=== PATIENT | male | born 1975 ===

== ENCOUNTER 2017-03-22 13:45 | Emergency (ER) | payer MEDICARE, MEDICAID ==
[2017-03-22 14:14] VITALS: BP 129/87; PULSE 68; RESP 20; TEMP 98.6; O2SAT 98; BMI 28.1
--- NOTE | 2017-03-22 14:41 | ED PDOC ---
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 States he twisted his right ankle while playing basketball this afternoon. Pain with weight bearing. Denies any other complaint. (Humberto,Italo A) Past Medical History - Provider Review Nursing Documentation Reviewed: Yes - Past History Past History: Non-Contributing - Infectious Disease Hx of Infectious Diseases: None - Tetanus Immunization Tetanus Immunization: Unknown - Cardiac Hx Cardiac Disorders: Yes Hx Hypertension: Yes Hx Hypotension: No - Pulmonary Hx Respiratory Disorders: No Hx Tuberculosis: No - Neurological HX Cerebrovascular Accident: No Hx Seizures: No - Hematological/Oncological Hx Cancer: No - Musculoskeletal/Rheumatological Hx Falls: No - Gastrointestinal Hx Gastrointestinal Disorders: No - Genitourinary/Gynecological Hx Genitourinary Disorders: No Hx Reproductive Disorders: No - Psychiatric Hx Psychophysiologic Disorder: Yes Hx Bipolar Disorder: Yes Hx Depression: No Hx Emotional Abuse: No Hx Physical Abuse: No Hx Substance Use: No Other/Comment: Developmental delay - Past Surgical History Past Surgical History: No Previous - Anesthesia Hx Anesthesia: No Hx Anesthesia Reactions: No Hx Malignant Hyperthermia: No - Suicidal Assessment Feels Threatened In Home Enviroment: No Family/Social History - Physician Review Nursing Documentation Reviewed: Yes Family/Social History: Unknown Family HX Smoking Status: Never Smoked Hx Alcohol Use: No Hx Substance Use: No Hx Substance Use Treatment: No Allergies/Home Meds Allergies/Adverse Reactions: Allergies No Known Allergies Allergy (Verified 11/15/15 18:36) Home Medications: Home Meds Medication Instructions Recorded Confirmed Fenofibrate [Fenofibrate] 160 mg PO DAILY 10/18/14 03/22/17 Simvastatin [Simvastatin] 20 mg PO DAILY 10/18/14 03/22/17 ARIPiprazole [Abilify] 5 mg PO DAILY 11/15/15 03/22/17 Benztropine [Benztropine Mesylate] 0.5 mg PO BID 11/15/15 03/22/17 Divalproex [Depakote ER(ONCE 500 mg PO DAILY 11/15/15 03/22/17 DAILY)] hydrOXYzine Pamoate [Vistaril] 50 mg PO PRN PRN 11/15/15 03/22/17 Review of Systems - Physician Review All systems were reviewed & negative as marked: Yes - Review of Systems Constitutional: Normal Eyes: Normal ENT: Normal Respiratory: Normal Cardiovascular: Normal Gastrointestinal: Normal Genitourinary Male: Normal Musculoskeletal: Arthralgias (Right ankle pain) Skin: Normal Neurological: Normal Endocrine: Normal Hemo/Lymphatic: Normal Psychiatric: Normal Physical Exam Vital Signs Reviewed: Yes Temperature: Afebrile Blood Pressure: Normal Pulse: Regular Respiratory Rate: Normal Appearance: Positive for: Well-Appearing, Non-Toxic, Comfortable Pain Distress: None Mental Status: Positive for: Alert and Oriented X 3 - Systems Exam Head: Present: Atraumatic, Normocephalic Pupils: Present: PERRL Extroacular Muscles: Present: EOMI Conjunctiva: Present: Normal Mouth: Present: Moist Mucous Membranes Neck: Present: Normal Range of Motion Respiratory/Chest: Present: Clear to Auscultation, Good Air Exchange. No: Respiratory Distress, Accessory Muscle Use Cardiovascular: Present: Regular Rate and Rhythm, Normal S1, S2. No: Murmurs Abdomen: Present: Normal Bowel Sounds. No: Tenderness, Distention, Peritoneal Signs Back: Present: Normal Inspection Upper Extremity: Present: Normal Inspection. No: Cyanosis, Edema Lower Extremity: Present: NORMAL PULSES, Normal ROM, Tenderness (OVer right lateral malleolus\), Temperature Abnormalties, Neurovascularly Intact, Capillary Refill < 2 s. No: Edema, Swelling, Erythema, Deformity Neurological: Present: GCS=15, CN II-XII Intact, Speech Normal Skin: Present: Warm, Dry, Normal Color. No: Rashes Psychiatric: Present: Alert, Oriented x 3, Normal Insight, Normal Concentration Vital Signs Temp Pulse Resp BP Pulse Ox 03/22/17 14:14 98.6 F 68 20 129/87 98 Medical Decision Making ED Course and Treatment: I was available for consultation during PA evaluation. The chart reviewed by me , and I agree with disposition. The documented history was done by the physician buttoner. The documented physical exam was done by the physician buttoner. The documented procedures were done by the physician buttoner. (John Manzo) Right ankle xray - No acute finding Fortino wrap applied. Crutches given. Advised to RICE ankle. Refered to his PMD/ Ortho. TRT ED for any new or worsening symptoms. (Italo Paul) - RAD Interpretation Radiology Orders: 03/22/17 14:14 ANKLE RIGHT 3 VIEWS ROUTINE [RAD] Stat - Medication Orders Current Medication Orders: Discontinued Medications Ibuprofen (Motrin Tab) 600 mg PO STAT STA Stop: 03/22/17 14:15 Last Admin: 03/22/17 14:50 Dose: 600 mg Disposition/Present on Arrival - Present on Arrival Any Indicators Present on Arrival: No History of DVT/PE: No History of Uncontrolled Diabetes: No Urinary Catheter: No History of Decub. Ulcer: No History Surgical Site Infection Following: None - Disposition Have Diagnosis and Disposition been Completed?: Yes Disposition Time: 14:55 Patient Plan: Discharge - Disposition Diagnosis: Ankle sprain Disposition: HOME/ ROUTINE Condition: STABLE Discharge Instructions (ExitCare): Ankle Sprain (ED) Additional Instructions: Rest, ice compress and elevate Follow up with your Doctor/Orthopedist Return to ED for any new or worsening symptoms Prescriptions: Ibuprofen [Motrin Tab] 600 mg PO Q6 #20 tab Referrals: Danelle Pierson, [Primary Care Provider] - Follow up with primary Miriam Doty MD [Staff Provider] - Follow up with primary
--- NOTE | 2017-03-22 14:53 | RAD ---
PROCEDURE: Right Ankle Radiographs. HISTORY: ankle pain s/p trauma COMPARISON: None FINDINGS: BONES: Normal. No fracture. JOINTS: Normal. No osteoarthritis. Ankle mortise maintained. Talar dome intact SOFT TISSUES: Normal. OTHER FINDINGS: None. IMPRESSION: Normal right ankle radiographs.
== END 2017-03-22 15:25 | disposition home or self-care (01) ==
LOC: ED 13:45
DX: S93.401A Sprain of unspecified ligament of right ankle, initial encounter (principal); X50.1XXA Overexertion from prolonged static or awkward postures, initial encounter; Y93.67 Activity, basketball

== ENCOUNTER 2017-05-03 15:23 | Observation (INO) | payer MEDICARE, MEDICAID ==
[2017-05-03 16:03] VITALS: BMI 37.4
[2017-05-03] MEDS ORDERED: Vancomycin 1gm in NS 250ml 1 GM/250 ML BAG IVPB STA (16:24)
[2017-05-03] MEDS ORDERED: Piperacillin/Tazobact 3.375 gm 100 ML IVPB STA (16:24)
[2017-05-03] MEDS ORDERED: Sodium Chloride 0.9% 1,000 ML IV STA (16:24)
--- NOTE | 2017-05-03 16:24 | ED PDOC ---
Arrival/HPI - General Historian: Patient - General Chief Complaint: Finger,Hand,&Wrist Time Seen by Provider: 05/03/17 16:14 - History of Present Illness Narrative History of Present Illness (Text): 05/03/17 16:15 41 y/o male, pmh including htn/hyperlipidemia, psychiatric history including bipolar, nkda, mentally challanged from retirement [address] [employer], nkda, bib group therapy counselor for lt. hand redness/swelling with skin breaking x 2 days with no recall fall or trauma. As per the group therapy counselor which they realized that the patient has lt. hand redness and swelling started yesterday with blister, blistered popped today with clear drainage and lt. hand redness, no fever or chills, no headache or night sweat, no dizziness, no nausea or vomiting, no night sweat, painful to move the lt. hand, no other medical or psychological complaints. (Reg Wilder) Past Medical History - Provider Review Nursing Documentation Reviewed: Yes - Past History Past History: Non-Contributing - Infectious Disease Hx of Infectious Diseases: None - Tetanus Immunization Tetanus Immunization: Unknown - Cardiac Hx Cardiac Disorders: Yes Hx Hypertension: Yes Hx Hypotension: No - Pulmonary Hx Respiratory Disorders: No Hx Tuberculosis: No - Neurological HX Cerebrovascular Accident: No Hx Seizures: No - Hematological/Oncological Hx Cancer: No - Integumentary Hx Dermatological Disorder: No - Musculoskeletal/Rheumatological Hx Falls: No - Gastrointestinal Hx Gastrointestinal Disorders: No - Genitourinary/Gynecological Hx Genitourinary Disorders: No Hx Reproductive Disorders: No - Psychiatric Hx Psychophysiologic Disorder: Yes Hx Bipolar Disorder: Yes Hx Depression: No Hx Emotional Abuse: No Hx Physical Abuse: No Hx Substance Use: No Other/Comment: Developmental delay - Past Surgical History Past Surgical History: No Previous - Anesthesia Hx Anesthesia: No Hx Anesthesia Reactions: No Hx Malignant Hyperthermia: No - Suicidal Assessment Feels Threatened In Home Enviroment: No Family/Social History - Physician Review Nursing Documentation Reviewed: Yes Family/Social History: Unknown Family HX Smoking Status: Never Smoked Hx Alcohol Use: No Hx Substance Use: No Hx Substance Use Treatment: No Allergies/Home Meds Allergies/Adverse Reactions: Allergies No Known Allergies Allergy (Verified 05/03/17 16:03) Home Medications: Home Meds Medication Instructions Recorded Confirmed Fenofibrate [Fenofibrate] 160 mg PO DAILY 10/18/14 05/03/17 Simvastatin [Simvastatin] 20 mg PO DAILY 10/18/14 05/03/17 ARIPiprazole [Abilify] 5 mg PO DAILY 11/15/15 05/03/17 Benztropine [Benztropine Mesylate] 0.5 mg PO BID 11/15/15 05/03/17 Divalproex [Depakote ER(ONCE 500 mg PO DAILY 11/15/15 05/03/17 DAILY)] hydrOXYzine Pamoate [Vistaril] 50 mg PO PRN PRN 11/15/15 05/03/17 Review of Systems - Review of Systems Constitutional: absent: Fatigue, Fevers Eyes: absent: Vision Changes ENT: absent: Hearing Changes Respiratory: absent: SOB, Cough, Sputum Cardiovascular: absent: Chest Pain Gastrointestinal: absent: Abdominal Pain, Diarrhea, Nausea, Vomiting Musculoskeletal: absent: Arthralgias, Back Pain Skin: Rash, Cellulitis. absent: Pruritis, Skin Lesions, Laceration, Abscess Neurological: absent: Headache, Dizziness, Focal Weakness Physical Exam Vital Signs Reviewed: Yes Temperature: Afebrile Blood Pressure: Normal Pulse: Regular Respiratory Rate: Normal Appearance: Positive for: Well-Appearing, Non-Toxic, Comfortable Pain Distress: Moderate Mental Status: Positive for: Alert and Oriented X 3 - Systems Exam Head: Present: Atraumatic, Normocephalic Pupils: Present: PERRL Extroacular Muscles: Present: EOMI Conjunctiva: Present: Normal Mouth: Present: Moist Mucous Membranes Neck: Present: Normal Range of Motion Respiratory/Chest: Present: Clear to Auscultation, Good Air Exchange. No: Respiratory Distress, Accessory Muscle Use Cardiovascular: Present: Regular Rate and Rhythm, Normal S1, S2. No: Murmurs Abdomen: Present: Normal Bowel Sounds. No: Tenderness, Distention, Peritoneal Signs Back: Present: Normal Inspection (Lt. upper extremity: visible cellulitis on the dorsum aspect of the hand which streaking down to the 2nd to the 5th digits proximal phalanx and distal 1/3 forearm region with warmth along there is skin breaking approx. [id number] noted with clear fluid, painful to make flexion, sensation intact, motor 5/5, +radial pulse, capillary refill< 2 seconds, neurovascular intact. ) Upper Extremity: Present: Normal Inspection, Other (Lt. hand). No: Cyanosis, Edema Lower Extremity: Present: Normal Inspection. No: Edema Neurological: Present: GCS=15, Speech Normal, Motor Func Grossly Intact, Memory Normal Skin: Present: Warm, Dry, Normal Color. No: Rashes Psychiatric: Present: Alert, Oriented x 3, Normal Insight, Normal Concentration Vital Signs Temp Pulse Resp BP Pulse Ox 05/03/17 20:44 73 18 142/93 H 98 05/03/17 20:04 70 18 147/102 H 99 05/03/17 16:03 97.6 F 71 18 138/88 100 Medical Decision Making - Lab Interpretations I have reviewed the lab results: Yes Interpretation: No clinic. lab abnormalty - RAD Interpretation Review Trainer: Radiologist - EKG Interpretation Interpreted by ED Physician: Yes Type: 12 lead EKG Comparison: Com.w/previous EKG ED Course and Treatment: I was available for consultation during PA evaluation. The chart reviewed by me , and I agree with disposition. The documented history was done by the physician wood boatbuilder. The documented physical exam was done by the physician wood boatbuilder. The documented procedures were done by the physician wood boatbuilder. (John Manzo) 05/03/17 16:31 -labs/blood and urine culture/wound cultures -chest/lt. hand and forearm xray -ekg -IVF/toradol/benadryl/vancomycin/zosyn -will admit the patient due to the poor wound healing and circulation on the distal extremities. 05/03/17 19:46 -EKG: NSR @ 78 BPM, no ST elevation or depression, chronic T wave inversion noted on the lead III and aVF, compared with previous ekg. -Chest x-ray: no active disease -Lt. hand/forearm xray show: +soft tissue swelling, no fracture or dislocation. -LUE Venuous Doppler: as per preliminary report, no acute DVT -Labs show no acute findings. -Urinalysis show no UTI -Dr. Gregory paged for admission. 05/03/17 20:23 -I spoke to Dr. Gregory about the case and agreed on the admission with dr. gaming on routine consult. -Dr. Manzo agreed on the admission. (Reg Wilder) - Lab Interpretations Microbiology Results: Microbiology Results 05/03/17 16:35 Drainage Gram Stain - Final 05/03/17 16:35 Drainage Wound Culture - Preliminary NO GROWTH AFTER 24 HOURS Lab Results: 05/03/17 16:35 05/03/17 16:35 Lab Results 05/03/17 17:00: Urine Color Yellow, Urine Appearance Clear, Urine pH 6.0, Ur Specific [place] >= 1.030, Urine Protein Negative, Urine Glucose (UA) Negative, Urine Ketones Negative, Urine Blood Negative, Urine Nitrate Negative, Urine Bilirubin Negative, Urine Urobilinogen 0.2, Ur Leukocyte Esterase Negative 05/03/17 16:35: Sodium 140, Potassium 4.0, Chloride 103, Carbon Dioxide 26, Anion Gap 15, BUN 11, Creatinine 0.8, Est GFR ( Amer) > 60, Est GFR (Non- Af Amer) > 60, Random Glucose 94, Calcium 9.2, Total Bilirubin 0.5, AST 31, ALT 45, Alkaline Phosphatase 51, Total Protein 8.0, Albumin 4.4, Globulin 3.6, Albumin/Globulin Ratio 1.2 05/03/17 16:35: WBC 7.3 D, RBC 4.35, Hgb 13.8 L, Hct 40.0 L, MCV 92.0, MCH 31.7 , MCHC 34.5, RDW 12.7, Plt Count 236, MPV 10.5, Gran % 46.9 L, Lymph % (Auto) 41.2 H, [place] % (Auto) 9.2 H, Eos % (Auto) 2.3, Baso % (Auto) 0.4, Gran # 3.41, Lymph # 3.0, [place] # 0.7 H, Eos # 0.2, Baso # 0.03 - RAD Interpretation Radiology Orders: 05/03/17 16:24 CHEST ONE VIEW [RAD] Stat FOREARM LEFT [RAD] Stat HAND LEFT 3 VIEWS ROUTINE [RAD] Stat 05/03/17 17:44 DUPLEX UPPER EXTRM VEIN LEFT [US] Stat 05/03/17 16:24 CHEST PORTABLE [RAD] Stat FOREARM LEFT [RAD] Stat HAND LEFT 3 VIEWS ROUTINE [RAD] Stat 05/03/17 17:44 DUPLEX UPPER EXTRM VEIN LEFT [US] Stat LUE Venuous Doppler: as per preliminary, no acute DVT Lt. hand xray: soft tissue swelling, no evidence of osteomylitis Lt. forearm xray: no fracture or dislocation Chest x-ray: no active disease (Reg Wilder) - EKG Interpretation EKG Interpretation (Text): 05/03/17 17:11 NSR @ 78 BPM, no ST elevation or depression, chronic T wave inversion noted on the lead III and aVF, compared with previous ekg. (Reg Wilder) - Medication Orders Current Medication Orders: Acetaminophen (Tylenol 325mg Tab) 650 mg PO Q4H PRN PRN Reason: pain fever Aripiprazole (Abilify) 5 mg PO DAILY [facility] Last Admin: 05/04/17 10:00 Dose: 5 mg Re-Assess: Reassess Psych Meds Document 05/04/17 11:00 [facility] (Rec: 05/04/17 12:38 [id number] Reassess Psych Med Effective Atorvastatin Calcium (Lipitor) 10 mg PO DIN [facility] Benztropine Mesylate (Cogentin) 0.5 mg PO BID [facility] Last Admin: 05/04/17 10:01 Dose: 0.5 mg Divalproex Sodium (Depakote Er(Once Daily)) 500 mg PO DAILY [facility] PRN Reason: Protocol Last Admin: 05/04/17 10:00 Dose: 500 mg Re-Assess: Reassess Psych Meds Document 05/04/17 11:00 [facility] (Rec: 05/04/17 12:38 [id number] Reassess Psych Med Effective Docusate Sodium (Colace) 100 mg PO BID [facility] Last Admin: 05/04/17 10:01 Dose: 100 mg Famotidine (Pepcid) 40 mg PO HS [facility] Fenofibrate (Tricor) 145 mg PO DAILY [facility] Last Admin: 05/04/17 10:00 Dose: 145 mg Hydromorphone HCl (Dilaudid) 0.5 mg IVP Q4H PRN PRN Reason: Pain, Mild (1-3) Hydroxyzine Pamoate (Vistaril) 50 mg PO DAILY PRN; Protocol PRN Reason: Anxiety Vancomycin HCl (Vancomycin 1gm) 1 gm in 250 mls @ 167 mls/hr IVPB Q12H CARI PRN Reason: Protocol Stop: 05/13/17 09:46 Last Admin: 05/04/17 10:03 Dose: 167 mls/hr Discontinued Medications Diphenhydramine HCl (Benadryl) 25 mg IVP STAT STA Stop: 05/03/17 16:30 Last Admin: 05/03/17 16:54 Dose: 25 mg Sodium Chloride (Sodium Chloride 0.9%) 1,000 mls @ 125 mls/hr IV .Q8H STA Stop: 05/04/17 00:23 Last Admin: 05/03/17 16:59 Dose: 125 mls/hr Vancomycin HCl (Vancomycin 1gm) 1 gm in 250 mls @ 167 mls/hr IVPB STAT STA PRN Reason: Protocol Stop: 05/03/17 17:53 Last Admin: 05/03/17 17:55 Dose: 167 mls/hr Piperacillin Sod/Tazobactam Sod (Zosyn 3.375 In Ns 100ml) 100 mls @ 200 mls/hr IVPB STAT STA PRN Reason: Protocol Stop: 05/03/17 16:53 Last Admin: 05/03/17 17:06 Dose: 200 mls/hr Ketorolac Tromethamine (Toradol) 30 mg IVP STAT STA Stop: 05/03/17 16:30 Last Admin: 05/03/17 16:54 Dose: 30 mg - PA / EXTENSION SERVICE SUPERVISOR / Resident Statement / has reviewed & agrees with the documentation as recorded. Disposition/Present on Arrival - Present on Arrival Any Indicators Present on Arrival: No History of DVT/PE: No History of Uncontrolled Diabetes: No Urinary Catheter: No History of Decub. Ulcer: No History Surgical Site Infection Following: None - Disposition Have Diagnosis and Disposition been Completed?: Yes Disposition Time: 16:32 Patient Plan: Admission - Disposition Diagnosis: Cellulitis of hand, Cellulitis of forearm Disposition: HOSPITALIZED Patient Problems: Current Active Problems Problem Status Onset Cellulitis of forearm Acute Cellulitis of hand Acute Condition: STABLE
[2017-05-03] MEDS ORDERED: DiphenhydrAMINE 50 mg/ml Inj IVP STA (16:29)
[2017-05-03 16:45] LABS: ADD MANUAL DIFF? NO
[2017-05-03 16:58] LABS: BASO # 0.03 K/mm3 (0.0-2.0); BASO % 0.4 % (0.0-3.0); EOS # 0.2 (0.0-0.7); EOS % 2.3 % (1.5-5.0); GRAN # 3.41 (1.4-6.5); GRAN % 46.9 % (50.0-68.0); LYMPH % 41.2 % (22.0-35.0); MEAN CORPUSCULAR HEMOGLOBIN 31.7 pg (25.0-35.0); MEAN CORPUSCULAR HGB CONC 34.5 g/dl (31.0-37.0); MEAN PLATELET VOLUME 10.5 fl (7.0-11.0); MONO # 0.7 (0.1-0.6); MONO % 9.2 % (1.0-6.0); PLATELET COUNT 236 10^3/uL (120.0-450.0); RED CELL DISTRIBUTION WIDTH 12.7 % (11.5-14.5); WHITE BLOOD COUNT 7.3 10^3/ul (4.5-11.0)
[2017-05-03 17:12] LABS: URINE APPEARANCE CLEAR (CLEAR); URINE BILIRUBIN NEGATIVE (NEGATIVE); URINE BLOOD NEGATIVE (NEGATIVE); URINE COLOR YELLOW (YELLOW); URINE GLUCOSE (UA) NEGATIVE (NEGATIVE); URINE KETONE NEGATIVE (NEGATIVE); URINE LEUKOCYTE ESTERASE NEGATIVE Leu/uL (NEGATIVE); URINE PROTEIN NEGATIVE mg/dL (<30 mg/dL); URINE UROBILINOGEN 0.2 E.U./dL (<1 E.U./dL)
[2017-05-03 17:13] LABS: ALB/GLOB RATIO 1.2 (1.1-1.8); ALKALINE PHOSPHATASE 51 U/L (38-133); ALT/SGPT 45 U/L (7-56); AST/SGOT 31 U/L (15-59); BILIRUBIN,TOTAL 0.5 mg/dL (0.2-1.3); BLOOD UREA NITROGEN 11 mg/dL (7-21); CALCIUM 9.2 mg/dL (8.4-10.5); CARBON DIOXIDE 26 mmol/L (21-33); CHLORIDE 103 mmol/L (98-107); GFR AFRICAN-AMERICAN > 60; GLUCOSE,RANDOM 94 mg/dL (70-110); SODIUM 140 mmol/L (132-148)
--- NOTE | 2017-05-03 20:42 | US ---
PROCEDURE: Left upper extremity venous ultrasound HISTORY: Arm pain and swelling. Evaluate for deep venous thrombosis. PHYSICIAN(S): Minesh Rowell MD. FINDINGS: The visualized leftinternal jugular vein is sonographically normal and compressible. No evidence of obstruction or thrombus is seen. The visualized segments of left subclavian vein are patent. However, the left subclavian waveform is continuous without variation. This raises the possibility of left subclavian occlusive disease, possibly related to thoracic outlet obstruction. IMPRESSION: 1. No sonographic evidence of deep venous thrombosis. 2. A left subclavian venous waveform is continuous an abnormal. This raises the possibility of left thoracic outlet obstruction. If clinical history and exam support this diagnosis, a left upper extremity venogram may be useful.
[2017-05-03] MEDS ORDERED: HYDROmorphone 0.5 mg/0.5 ml ISec IVP PRN (22:36)
[2017-05-03 23:53] VITALS: RESP 20
--- NOTE | 2017-05-04 08:15 | RAD ---
PROCEDURE: CHEST RADIOGRAPH, 1 VIEW HISTORY: medical clearance, admission COMPARISON: None available. FINDINGS: LUNGS: The lungs are clear. PLEURA: No pneumothorax or pleural fluid seen. CARDIOVASCULAR: Normal. OSSEOUS STRUCTURES: No significant abnormalities. VISUALIZED UPPER ABDOMEN: Normal. OTHER FINDINGS: None. IMPRESSION: No active pulmonary disease.
--- NOTE | 2017-05-04 08:27 | RAD ---
PROCEDURE: Left Hand Radiographs. HISTORY: lt. hand cellulitis and swelling COMPARISON: None. FINDINGS: BONES: Bone alignment and mineralization are normal. No acute fracture or bone destruction. JOINTS: Normal. No osteoarthritic changes. SOFT TISSUES: There is mild dorsal soft tissue swelling OTHER FINDINGS: None. IMPRESSION: No radiographic evidence for osteomyelitis. Mild dorsal soft tissue swelling may represent cellulitis in the appropriate clinical setting.
--- NOTE | 2017-05-04 08:36 | RAD ---
PROCEDURE: Radiographs of the Left Forearm HISTORY: lt. hand cellulitis and swelling COMPARISON: None available. TECHNIQUE: Frontal and lateral views obtained. FINDINGS: BONES: No fracture or destructive lesion. Bone alignment and mineralization are not JOINT SPACES: Unremarkable. OTHER FINDINGS: None. IMPRESSION: No acute fracture or bone destruction.
--- NOTE | 2017-05-04 09:58 | CARD ---
APPROVED REPORT EKG Measurement Heart [id number] <Conclusion> Normal sinus rhythm Normal ECG
[2017-05-04] MEDS ORDERED: cefTRIAXone 1 gm 1 GM/100 ML BAG IVPB SCH (10:00)
[2017-05-04] MEDS: Divalproex 500 mg ER (ONCE DAILY formulation) PO SCH (10:00)
[2017-05-04] MEDS: Vancomycin 1gm in NS 250ml 1 GM/250 ML BAG IVPB SCH ×2 (10:03→21:04)
--- NOTE | 2017-05-05 00:05 | CP.PCM.CON ---
History of Present Illness - History of Present Illness History of Present Illness: LEFT HAND RED FOR ONE DAY Review of Systems - Review of Systems Systems not reviewed;Unavailable: Acuity of Condition, Unstable Vital Signs, Respiratory Distress, Dementia, Altered Mental Status, Intoxicated, Uncooperative, Psychotic, Intubated, Language Barrier, Other Past Patient History - Infectious Disease Hx of Infectious Diseases: None - Tetanus Immunizations Tetanus Immunization: Unknown - Past Social History Smoking Status: Never Smoked - CARDIAC Hx Cardiac Disorders: Yes Hx Hypertension: Yes Hx Hypotension: No - PULMONARY Hx Respiratory Disorders: No Hx Tuberculosis: No - NEUROLOGICAL HX Cerebrovascular Accident: No Hx Seizures: No - HEMATOLOGICAL/ONCOLOGICAL Hx Cancer: No - INTEGUMENTARY Hx Dermatological Problems: No - MUSCULOSKELETAL/RHEUMATOLOGICAL Hx Falls: No - GASTROINTESTINAL Hx Gastrointestinal Disorders: No - GENITOURINARY/GYNECOLOGICAL Hx Genitourinary Disorders: No Hx Reproductive Disorders: No - PSYCHIATRIC Hx Psychophysiologic Disorder: Yes Hx Bipolar Disorder: Yes Hx Depression: No Hx Emotional Abuse: No Hx Physical Abuse: No Hx Substance Use: No Other/Comment: Developmental delay - SURGICAL HISTORY Hx Surgeries: No - ANESTHESIA Hx Anesthesia: No Hx Anesthesia Reactions: No Hx Malignant Hyperthermia: No Meds Allergies/Adverse Reactions: Allergies Allergy/AdvReac Type Severity Reaction Status Date / Time No Known Allergies Allergy Verified 05/03/17 16:03 - Medications Medications: Current Medications Acetaminophen (Tylenol 325mg Tab) 650 mg PO Q4H PRN PRN Reason: pain fever Aripiprazole (Abilify) 5 mg PO DAILY [facility] Last Admin: 05/04/17 10:00 Dose: 5 mg Atorvastatin Calcium (Lipitor) 10 mg PO DIN [facility] Last Admin: 05/04/17 18:12 Dose: 10 mg Benztropine Mesylate (Cogentin) 0.5 mg PO BID [facility] Last Admin: 05/04/17 18:12 Dose: 0.5 mg Divalproex Sodium (Depakote Er(Once Daily)) 500 mg PO DAILY [facility] PRN Reason: Protocol Last Admin: 05/04/17 10:00 Dose: 500 mg Docusate Sodium (Colace) 100 mg PO BID [facility] Last Admin: 05/04/17 18:12 Dose: 100 mg Famotidine (Pepcid) 40 mg PO HS [facility] Last Admin: 05/04/17 21:04 Dose: 40 mg Fenofibrate (Tricor) 145 mg PO DAILY [facility] Last Admin: 05/04/17 10:00 Dose: 145 mg Hydromorphone HCl (Dilaudid) 0.5 mg IVP Q4H PRN PRN Reason: Pain, Mild (1-3) Hydroxyzine Pamoate (Vistaril) 50 mg PO DAILY PRN; Protocol PRN Reason: Anxiety Vancomycin HCl (Vancomycin 1gm) 1 gm in 250 mls @ 167 mls/hr IVPB Q12H [facility]I PRN Reason: Protocol Stop: 05/13/17 09:46 Last Admin: 05/04/17 21:04 Dose: 167 mls/hr Physical Exam - Constitutional Appears: Well - Head Exam Head Exam: ATRAUMATIC, NORMAL INSPECTION, NORMOCEPHALIC - Eye Exam Eye Exam: EOMI, Normal appearance, PERRL Pupil Exam: NORMAL ACCOMODATION, PERRL - ENT Exam ENT Exam: Mucous Membranes Moist, Normal Exam - Neck Exam Neck exam: Positive for: Normal Inspection - Respiratory Exam Respiratory Exam: Clear to Auscultation Bilateral, NORMAL BREATHING PATTERN - Cardiovascular Exam Cardiovascular Exam: REGULAR RHYTHM - GI/Abdominal Exam GI & Abdominal Exam: Normal Bowel Sounds, Soft. absent: Tenderness - Rectal Exam Rectal Exam: NORMAL INSPECTION - Exam Exam: Circumcision, NORMAL INSPECTION External exam: NORMAL EXTERNAL EXAM Speculum exam: NORMAL SPECULUM EXAM Bimanual exam: NORMAL BIMANUAL EXAM - Extremities Exam Extremities exam: Positive for: normal inspection - Expanded Upper Extremities Exam Left Shoulder exam: erythema (RED HOT LEFT HAND WITH CENTRAL ULCER) - Back Exam Back exam: NORMAL INSPECTION - Neurological Exam Neurological exam: Alert, CN II-XII Intact, Normal Gait, Oriented x3, Reflexes Normal - Psychiatric Exam Psychiatric exam: Normal Affect, Normal Mood - Skin Skin Exam: Dry, Intact, Normal Color, Warm Results - Vital Signs Recent Vital Signs: Last Vital Signs Temp 98.7 F 05/04/17 17:18 Pulse 74 05/04/17 17:18 Resp 20 05/04/17 17:18 BP 120/75 05/04/17 17:18 Pulse Ox 96 05/04/17 17:18 - Labs Result Diagrams: 05/03/17 16:35 05/03/17 16:35 Labs: Laboratory Results - last 24 hr 05/04/17 05/04/17 05/04/17 10:30 10:30 10:30 ESR 16 H C-React Prot High Sens 4.14 H RPR Nonreactive Assessment & Plan - Assessment and Plan (Free Text) Assessment: LEFT HAND CELLULITIS Plan: IV VANCO - Date & Time Date: 05/04/17 Time: 10:00
[2017-05-05 07:46] VITALS: BP 144/100; PULSE 68; TEMP 98; O2SAT 95
[2017-05-05] MEDS: Divalproex 500 mg ER (ONCE DAILY formulation) PO SCH (09:31)
[2017-05-05] MEDS: Vancomycin 1gm in NS 250ml 1 GM/250 ML BAG IVPB SCH (09:32)
--- NOTE | 2017-05-05 11:16 | CP.PCM.PN ---
Subjective - Date & Time of Evaluation Date of Evaluation: 05/05/17 Time of Evaluation: 07:00 - Subjective Subjective: HAND MUCH BETTER Objective - Vital Signs/Intake and Output Vital Signs (last 24 hours): Temp Pulse Resp BP Pulse Ox 98.0 F 68 20 144/100 H 95 05/05/17 07:45 05/05/17 07:45 05/05/17 07:45 05/05/17 07:45 05/05/17 07:45 - Medications Medications: Current Medications Acetaminophen (Tylenol 325mg Tab) 650 mg PO Q4H PRN PRN Reason: pain fever Aripiprazole (Abilify) 5 mg PO DAILY [facility] Last Admin: 05/05/17 09:31 Dose: 5 mg Atorvastatin Calcium (Lipitor) 10 mg PO DIN [facility] Last Admin: 05/04/17 18:12 Dose: 10 mg Benztropine Mesylate (Cogentin) 0.5 mg PO BID [facility] Last Admin: 05/05/17 09:31 Dose: 0.5 mg Divalproex Sodium (Depakote Er(Once Daily)) 500 mg PO DAILY [facility] PRN Reason: Protocol Last Admin: 05/05/17 09:31 Dose: 500 mg Docusate Sodium (Colace) 100 mg PO BID [facility] Last Admin: 05/05/17 09:31 Dose: 100 mg Famotidine (Pepcid) 40 mg PO HS [facility] Last Admin: 05/04/17 21:04 Dose: 40 mg Fenofibrate (Tricor) 145 mg PO DAILY [facility] Last Admin: 05/05/17 09:31 Dose: 145 mg Hydromorphone HCl (Dilaudid) 0.5 mg IVP Q4H PRN PRN Reason: Pain, Mild (1-3) Hydroxyzine Pamoate (Vistaril) 50 mg PO DAILY PRN; Protocol PRN Reason: Anxiety Vancomycin HCl (Vancomycin 1gm) 1 gm in 250 mls @ 167 mls/hr IVPB Q12H [facility] PRN Reason: Protocol Stop: 05/13/17 09:46 Last Admin: 05/05/17 09:32 Dose: 167 mls/hr - Constitutional Appears: Well - Head Exam Head Exam: ATRAUMATIC, NORMAL INSPECTION, NORMOCEPHALIC - Eye Exam Eye Exam: EOMI, Normal appearance, PERRL Pupil Exam: NORMAL ACCOMODATION, PERRL - ENT Exam ENT Exam: Mucous Membranes Moist, Normal Exam - Neck Exam Neck Exam: Full ROM, Normal Inspection. absent: Lymphadenopathy - Respiratory Exam Respiratory Exam: Clear to Ausculation Bilateral, NORMAL BREATHING PATTERN - Cardiovascular Exam Cardiovascular Exam: REGULAR RHYTHM, +S1, +S2. absent: Murmur - GI/Abdominal Exam GI & Abdominal Exam: Soft, Normal Bowel Sounds. absent: Tenderness - Rectal Exam Rectal Exam: NORMAL INSPECTION - Exam Exam: Circumcision, NORMAL INSPECTION External exam: NORMAL EXTERNAL EXAM Speculum exam: NORMAL SPECULUM EXAM Bimanual exam: NORMAL BIMANUAL EXAM - Extremities Exam Extremities Exam: Full ROM, Normal Capillary Refill, Normal Inspection. absent : Joint Swelling, Pedal Edema - Back Exam Back Exam: NORMAL INSPECTION - Neurological Exam Neurological Exam: Alert, Awake, CN II-XII Intact, Normal Gait, Oriented x3 - Psychiatric Exam Psychiatric exam: Normal Affect, Normal Mood - Skin Skin Exam: Dry, Intact, Normal Color, Warm Assessment and Plan (1) Cellulitis of left hand Status: Acute - Assessment and Plan (Free Text) Assessment: LEFT HAND IS MUCH IMPROVED Plan: PO ABX
== END 2017-05-05 18:41 | disposition home or self-care (01) ==
LOC: ED 15:23 → ERH 19:50 → 5RNO 21:17 → INTOOBSV 05-05 10:44 → OBSVTOIN 05-05 10:44
PROVIDERS: ADMIT Internal Medicine; ATTEND Internal Medicine
DX: L03.114 Cellulitis of left upper limb (principal); I10 Essential (primary) hypertension; E78.5 Hyperlipidemia, unspecified; F31.9 Bipolar disorder, unspecified; Z79.899 Other long term (current) drug therapy
CPT/HCPCS: 36415; 71010; 73090; 73130; 80053; 81003; 85025; 85651; 86140; 86592; 87040; 87070; 87086; 93005; 93971; 96365; 96366; 96367; 96375; 96376; 99284; G0378; J1200; J1885; J2543; J7040

== ENCOUNTER 2017-05-30 23:55 | Emergency (ER) | payer MEDICARE, MEDICAID ==
[2017-05-30 23:55] VITALS: BMI 37.4
[2017-05-31] MEDS ORDERED: Atropine-Diphenoxylate 0.025-2.5 mg Tab PO STA (00:12)
--- NOTE | 2017-05-31 00:21 | ED PDOC ---
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 Patient stated he had a lose BM. On the contrary of triage note, patient denies rectal bleeding. Denies sob, cp, weakness, paresthesias, fever, n/v, or abnormal gait. Patient admits drinking one drink of alcohol early this afternoon. (Cullen Chapman ) Past Medical History - Provider Review Nursing Documentation Reviewed: Yes - Past History Past History: Non-Contributing - Infectious Disease Hx of Infectious Diseases: None - Tetanus Immunization Tetanus Immunization: Unknown - Cardiac Hx Cardiac Disorders: Yes Hx Hypertension: Yes Hx Hypotension: No - Pulmonary Hx Respiratory Disorders: No Hx Tuberculosis: No - Neurological HX Cerebrovascular Accident: No Hx Seizures: No - Hematological/Oncological Hx Cancer: No - Integumentary Hx Dermatological Disorder: No - Musculoskeletal/Rheumatological Hx Falls: No - Gastrointestinal Hx Gastrointestinal Disorders: No - Genitourinary/Gynecological Hx Genitourinary Disorders: No Hx Reproductive Disorders: No - Psychiatric Hx Psychophysiologic Disorder: Yes Hx Bipolar Disorder: Yes Hx Depression: No Hx Emotional Abuse: No Hx Physical Abuse: No Hx Substance Use: No Other/Comment: Developmental delay - Past Surgical History Past Surgical History: No Previous - Anesthesia Hx Anesthesia: No Hx Anesthesia Reactions: No Hx Malignant Hyperthermia: No - Suicidal Assessment Feels Threatened In Home Enviroment: No Family/Social History - Physician Review Nursing Documentation Reviewed: Yes Family/Social History: No Known Family HX Smoking Status: Never Smoked Hx Alcohol Use: Yes Frequency of alcohol use: Daily Hx Substance Use: No Hx Substance Use Treatment: No Allergies/Home Meds Allergies/Adverse Reactions: Allergies No Known Allergies Allergy (Verified 05/03/17 16:03) Home Medications: Home Meds Medication Instructions Recorded Confirmed hydrOXYzine Pamoate [Vistaril] 50 mg PO PRN PRN 11/15/15 05/31/17 Review of Systems - Review of Systems Constitutional: Normal. absent: Fatigue, Weight Change, Fevers, Night Sweats Eyes: Normal. absent: Vision Changes ENT: Normal. absent: Sore Throat, Rhinorrhea Respiratory: Normal. absent: SOB, Cough Cardiovascular: Normal. absent: Chest Pain, Palpitations Gastrointestinal: Diarrhea, Other (denies rectal bleeding). absent: Abdominal Pain, Constipation, Nausea, Vomiting, Hematochezia, Hematemesis, Anorexia, Food Intolerance Genitourinary Male: Normal. absent: Dysuria, Frequency, Hematuria Musculoskeletal: Normal. absent: Arthralgias, Back Pain Skin: Normal Neurological: Normal. absent: Headache, Dizziness, Focal Weakness, Gait Changes , Speech Changes Endocrine: Normal Hemo/Lymphatic: Normal Psychiatric: Normal Physical Exam Temperature: Afebrile Blood Pressure: Normal Pulse: Regular Respiratory Rate: Normal Appearance: Positive for: Well-Appearing, Non-Toxic, Comfortable Pain Distress: None Mental Status: Positive for: Alert and Oriented X 3 - Systems Exam Head: Present: Atraumatic, Normocephalic Pupils: Present: PERRL Extroacular Muscles: Present: EOMI Conjunctiva: Present: Normal Mouth: Present: Moist Mucous Membranes Neck: Present: Normal Range of Motion Respiratory/Chest: Present: Clear to Auscultation, Good Air Exchange. No: Respiratory Distress, Accessory Muscle Use Cardiovascular: Present: Regular Rate and Rhythm, Normal S1, S2. No: Murmurs Abdomen: Present: Normal Bowel Sounds, Other (Abdomen is soft, nt/nd). No: Tenderness, Distention, Peritoneal Signs, Rebound, Guarding, Hernias, Feeding Tubes Back: Present: Normal Inspection Upper Extremity: Present: Normal Inspection. No: Cyanosis, Edema Lower Extremity: Present: Normal Inspection. No: Edema Neurological: Present: GCS=15, CN II-XII Intact, Speech Normal Skin: Present: Warm, Dry, Normal Color. 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 Patient was treated with Lomotil, and he was recommended to see his PMD tomorrow, and to return to emergency if symptoms returns. Patient feels asymptomatic at this time. (Chapman,Nahim P) - Medication Orders Current Medication Orders: Discontinued Medications Diphenoxylate HCl/Atropine (Lomotil 0.025-2.5 Mg Tablet) 1 tab PO STAT STA Stop: 05/31/17 00:13 Last Admin: 05/31/17 00:57 Dose: 1 tab Disposition/Present on Arrival - Present on Arrival Any Indicators Present on Arrival: No History of DVT/PE: No History of Uncontrolled Diabetes: No Urinary Catheter: No History of Decub. Ulcer: No History Surgical Site Infection Following: None - Disposition Have Diagnosis and Disposition been Completed?: Yes Disposition Time: 00:40 Patient Plan: Discharge - Disposition Diagnosis: Diarrhea Disposition: HOME/ ROUTINE Condition: GOOD Discharge Instructions (ExitCare): Acute Diarrhea (ED) Additional Instructions: Call private doctor for follow up visit in 1-2 days. Drink plenty of fluids, and rest. Return to emergency if symptoms worsen. Prescriptions: Atropine/Diphenoxylate [Lonox 0.025 MG-2.5 MG] 1 tab PO Q6H PRN #10 tab PRN Reason: Constipation Referrals: [facility] [Outside] - Follow up with primary [facility] [Outside] - Follow up with primary
[2017-05-31 00:30] VITALS: BP 114/65; PULSE 86; TEMP 98.5
[2017-05-31 01:06] VITALS: RESP 18; O2SAT 99
== END 2017-05-31 00:58 | disposition home or self-care (01) ==
LOC: ED 23:55
DX: R19.7 Diarrhea, unspecified (principal)

== ENCOUNTER 2018-01-17 21:08 | Inpatient (IN) | payer MEDICARE, MEDICAID ==
[2018-01-17 22:39] VITALS: BMI 24.3
[2018-01-18 01:24] LABS: BASO # 0.03 K/mm3 (0.0-2.0); BASO % 0.4 % (0.0-3.0); EOS # 0.1 (0.0-0.7); EOS % 1.6 % (1.5-5.0); GRAN # 4.3 (1.4-6.5); GRAN % 56.2 % (50.0-68.0); HEMOGLOBIN 13.3 g/dL (14.0-18.0); LYMPH # 2.5 (1.2-3.4); LYMPH % 32.5 % (22.0-35.0); MEAN CELL VOLUME 93.8 fl (80.0-105.0); MEAN CORPUSCULAR HEMOGLOBIN 31.7 pg (25.0-35.0); MEAN CORPUSCULAR HGB CONC 33.8 g/dl (31.0-37.0); MEAN PLATELET VOLUME 11.1 fl (7.0-11.0); MONO # 0.7 (0.1-0.6); MONO % 9.3 % (1.0-6.0); RBC 4.19 10^6/uL (3.5-6.1); RED CELL DISTRIBUTION WIDTH 12.8 % (11.5-14.5); WHITE BLOOD COUNT 7.7 10^3/ul (4.5-11.0)
[2018-01-18 01:31] LABS: ALB/GLOB RATIO 1.2 (1.1-1.8); ALT/SGPT 48 U/L (7-56); AST/SGOT 36 U/L (17-59); BLOOD UREA NITROGEN 17 mg/dL (7-21); CALCIUM 9.9 mg/dL (8.4-10.5); GFR AFRICAN-AMERICAN > 60; GFR NON-AFRICAN AMERICAN > 60
[2018-01-18] MEDS ORDERED: Iohexol 350 MG/100 ML VIAL ONE (01:43)
--- NOTE | 2018-01-18 02:24 | ED PDOC ---
Arrival/HPI <Tres López - Last Filed: 01/18/18 03:53> - General Historian: Patient <Lucinda Amin - Last Filed: 01/18/18 14:52> - General Chief Complaint: Abnormal Skin Integrity Time Seen by Provider: 01/17/18 23:09 - History of Present Illness Narrative History of Present Illness (Text): 01/18/18 02:19 42yr old male presents today with pain to the buttock and rash and itching to the buttock since today. pt denies abdominal pain. no n/v/d/c. no cp or sob. pt states he has been having on and off diarrhea for "a while now". denies fever/ chills. pt states he has pain to the buttock and noticed red rash/irritation to buttock. no medications taken at home. pt states he has had this problem before. (Lucinda Amin) Past Medical History - Provider Review Nursing Documentation Reviewed: Yes - Travel History Have you recently traveled outside [place] w/in the past 3 mons?: No - Past History Past History: Non-Contributing - Infectious Disease Hx of Infectious Diseases: None - Tetanus Immunization Tetanus Immunization: Unknown - Cardiac Hx Cardiac Disorders: Yes Hx Hypertension: Yes Hx Hypotension: No - Pulmonary Hx Respiratory Disorders: No Hx Tuberculosis: No - Neurological HX Cerebrovascular Accident: No Hx Seizures: No - Hematological/Oncological Hx Cancer: No - Integumentary Hx Dermatological Disorder: No - Musculoskeletal/Rheumatological Hx Falls: No - Gastrointestinal Hx Gastrointestinal Disorders: No - Genitourinary/Gynecological Hx Genitourinary Disorders: No Hx Reproductive Disorders: No - Psychiatric Hx Psychophysiologic Disorder: Yes Hx Bipolar Disorder: Yes Hx Depression: No Hx Emotional Abuse: No Hx Physical Abuse: No Hx Substance Use: No Other/Comment: Developmental delay - Past Surgical History Past Surgical History: No Previous - Anesthesia Hx Anesthesia: No Hx Anesthesia Reactions: No Hx Malignant Hyperthermia: No - Suicidal Assessment Feels Threatened In Home Enviroment: No <Lucinda Amin - Last Filed: 01/18/18 14:52> Family/Social History - Physician Review Nursing Documentation Reviewed: Yes Family/Social History: Unknown Family HX Smoking Status: Never Smoked Hx Alcohol Use: Yes Hx Substance Use: No Hx Substance Use Treatment: No <Lucinda Amin - Last Filed: 01/18/18 14:52> Allergies/Home Meds <Tres López - Last Filed: 01/18/18 03:53> <Lucinda Amin - Last Filed: 01/18/18 14:52> Allergies/Adverse Reactions: Allergies No Known Allergies Allergy (Verified 01/17/18 21:15) Home Medications: Home Meds Medication Instructions Recorded Confirmed hydrOXYzine Pamoate [Vistaril] 50 mg PO PRN PRN 11/15/15 01/17/18 Review of Systems - Review of Systems Constitutional: absent: Fatigue, Fevers Respiratory: absent: SOB, Cough Cardiovascular: absent: Chest Pain, Palpitations Gastrointestinal: absent: Abdominal Pain, Constipation, Nausea, Vomiting Genitourinary Male: absent: Dysuria, Frequency, Hematuria Musculoskeletal: absent: Arthralgias, Back Pain, Neck Pain Skin: Rash, Pruritis Neurological: absent: Headache, Dizziness Psychiatric: absent: Anxiety, Depression <Lucinda Amni - Last Filed: 01/18/18 14:52> Physical Exam Vital Signs Reviewed: Yes Temperature: Afebrile Blood Pressure: Hypertensive Pulse: Regular Respiratory Rate: Normal Appearance: Positive for: Non-Toxic, Comfortable, Unkept Pain Distress: None Mental Status: Positive for: Alert and Oriented X 3 - Systems Exam Head: Present: Atraumatic Mouth: Present: Moist Mucous Membranes Respiratory/Chest: Present: Clear to Auscultation Cardiovascular: Present: Regular Rate and Rhythm Abdomen: No: Tenderness, Distention, Rebound, Guarding Rectal: Present: Rectal Tenderness, Other (there is red skin surrounding the anus and medial aspect of the buttock adjacent to the buttock. + excoriations noted; minimal tenderness; ). No: Gross Blood, Melena, Hemorrhoids, Normal Rectal Tone (decreased sphinter tone), Fissures, Nodule/Mass/Lesions Genitourinary Male: Present: Normal External Genitalia. No: Erythema Back: Present: Normal Inspection Upper Extremity: Present: Normal ROM Lower Extremity: Present: Normal ROM Skin: Present: Warm, Dry, Normal Color <Lucinda Amin - Last Filed: 01/18/18 14:52> Vital Signs Temp Pulse Resp BP Pulse Ox 01/18/18 05:40 98.4 F 84 18 128/76 100 01/18/18 02:55 98.1 F 85 19 130/87 96 01/18/18 01:15 98.1 F 91 H 19 150/76 98 01/17/18 21:16 98.3 F 97 H 19 147/96 H 95 Medical Decision Making <Tres López - Last Filed: 01/18/18 03:53> <Lucinda Amin - Last Filed: 01/18/18 14:52> ED Course and Treatment: EXAM: CT Abdomen and Pelvis With Intravenous Contrast Dictated and Authenticated by: Sudeep Alvarado MD 01/18/2018 3:31 AM IMPRESSION: 1. Mild proctitis versus underdistention. Clinical correlation is needed. 2. Adrenal lesion. Recommend further evaluation with unenhanced abdominal CT or MR. Alternatively, if there is a history of malignancy, consider PET. 3. Liver lesion. For patients with low to average risk of malignancy, no further follow-up is necessary. For patients with high risk of malignancy, recommend follow-up abdominal CT or MR in 6 months or for suspicious lesions, multiphasic MR. 4. Incidental/non-acute findings are described above. 01/18/18 03:[address] Gregory who is aware and agrees with the plan. Accepts patient into her service with Dr. Espino under consult. (Tres López) 42-year-old male with rectal pain and irritation times one day CBC within normal limits CMP within normal limits CAT scan of the abdomen and pelvis with IV contrast to rule out rectal abscess: pending 01/18/18 02:24 case signed out to dr. lópez pending CT results, re-evaluation and disposition. (Lucinda Amin) - Lab Interpretations Lab Results: 01/18/18 01:02 01/18/18 01:02 Lab Results 01/18/18 01:02: WBC 7.7, RBC 4.19, Hgb 13.3 L, Hct 39.3 L, MCV 93.8, MCH 31.7, MCHC 33.8, RDW 12.8, Plt Count 250, MPV 11.1 H, Gran % 56.2, Lymph % (Auto) 32.5 , [place] % (Auto) 9.3 H, Eos % (Auto) 1.6, Baso % (Auto) 0.4, Gran # 4.30, Lymph # (Auto) 2.5, [place] # (Auto) 0.7 H, Eos # (Auto) 0.1, Baso # (Auto) 0.03 01/18/18 01:02: Sodium 143, Potassium 3.8, Chloride 105, Carbon Dioxide 25, Anion Gap 16, BUN 17, Creatinine 0.9, Est GFR ( Amer) > 60, Est GFR (Non- Af Amer) > 60, Random Glucose 104, Calcium 9.9, Total Bilirubin 0.3, AST 36, ALT 48, Alkaline Phosphatase 36 L, Total Protein 7.3, Albumin 4.0, Globulin 3.3 , Albumin/Globulin Ratio 1.2 - RAD Interpretation Radiology Orders: 01/18/18 00:13 ABD & PELVIS IV CONTRAST ONLY [CT] Stat - Medication Orders Current Medication Orders: Famotidine (Pepcid) 40 mg PO HS [facility] Hydromorphone HCl (Dilaudid) 0.25 mg IVP Q6H PRN PRN Reason: Pain, Mild (1-3) Piperacillin Sod/Tazobactam Sod (Zosyn 3.375 In Ns 100ml) 100 mls @ 200 mls/hr IVPB Q6 [facility] PRN Reason: Protocol Stop: 01/25/18 12:01 Last Admin: 01/18/18 12:21 Dose: 200 mls/hr eMAR Start Stop Document 01/18/18 12:21 TAISHA (Rec: 01/18/18 12:21 TAISHA [id number]) Intravenous Solution Start Date 01/18/18 Start Time 12:21 Multi-Ingredient Ointment (Prep-Hem) 0 ea TOP DAILY [facility] Last Admin: 01/18/18 10:36 Dose: 1 applic Polyethylene Glycol (Miralax) 17 gm PO BID [facility] Discontinued Medications Piperacillin Sod/Tazobactam Sod (Zosyn 3.375 In Ns 100ml) 100 mls @ 200 mls/hr IV STAT STA PRN Reason: Protocol Stop: 01/18/18 04:21 Last Admin: 01/18/18 05:15 Dose: 200 mls/hr eMAR Start Stop Document 01/18/18 05:15 JUDY (Rec: 01/18/18 05:15 JUDY [id number]) Intravenous Solution Start Date 01/18/18 Start Time 05:15 End Date 03/13/18 End time 05:45 Total Infusion Time 30 Polyethylene Glycol (Miralax) 17 gm PO DAILY [facility] Last Admin: 01/18/18 10:35 Dose: 17 gm - PA / GAS FLOW REGULATOR / Resident Statement JEFF has reviewed & agrees with the documentation as recorded. JEFF has examined the patient and agrees with the treatment plan. <Tres López - Last Filed: 01/18/18 03:53> Disposition/Present on Arrival - Present on Arrival Any Indicators Present on Arrival: No History of DVT/PE: No History of Uncontrolled Diabetes: No Urinary Catheter: No History of Decub. Ulcer: No History Surgical Site Infection Following: None - Disposition Have Diagnosis and Disposition been Completed?: Yes Disposition Time: 03:54 <Tres López - Last Filed: 01/18/18 03:53> - Present on Arrival History of DVT/PE: No History of Uncontrolled Diabetes: No Urinary Catheter: No History of Decub. Ulcer: No History Surgical Site Infection Following: None - Disposition Have Diagnosis and Disposition been Completed?: Yes <Lucinda Amin - Last Filed: 01/18/18 14:52> - Disposition Diagnosis: Cellulitis, Proctitis Disposition: HOSPITALIZED Patient Problems: Current Active Problems Problem Status Onset Cellulitis Acute Proctitis Acute Condition: STABLE
--- NOTE | 2018-01-18 03:31 | CT ---
EXAM: CT Abdomen and Pelvis With Intravenous Contrast CLINICAL HISTORY: 42 years old, male; Pain; Other: Rectal; Additional info: Rectal pain TECHNIQUE: Axial computed tomography images of the abdomen and pelvis with intravenous contrast. All CT scans at this facility use one or more dose reduction techniques, viz.: automated exposure control; ma/kV adjustment per patient size (including targeted exams where dose is matched to indication; i.e. head); or iterative reconstruction technique. Coronal and sagittal reformatted images were created and reviewed. CONTRAST: 96 mL of OMNI 350 administered intravenously. COMPARISON: No relevant prior studies available. FINDINGS: Limitations: Motion artifact - mild. Lower thorax: No acute findings. ABDOMEN: Liver: Fatty infiltration. 0.8 cm lesion with flash filling enhancement. Gallbladder and bile ducts: No calcified stones. No ductal dilation. Pancreas: No ductal dilation. No mass. Spleen: No splenomegaly. Adrenals: 1.9 x 1.9 x 2.5 cm lesion within LEFT adrenal gland, indeterminate by CT criteria. Kidneys and ureters: Probable RIGHT renal cyst. No hydronephrosis. Stomach and bowel: Mild mural thickening vs underdistention of rectum. No associated inflammatory stranding. No obstruction. Appendix: Normal caliber. No inflammation. PELVIS: Bladder: Unremarkable. Reproductive: Unremarkable as visualized. ABDOMEN and PELVIS: Intraperitoneal space: No significant fluid collection. No free air. Bones/joints: No acute fracture. Soft tissues: Small LEFT inguinal hernia containing fat. Tiny umbilical hernia containing fat. Vasculature: Unremarkable. No aneurysm. Lymph nodes: No pathologically enlarged lymph nodes. IMPRESSION: 1. Mild proctitis versus underdistention. Clinical correlation is needed. 2. Adrenal lesion. Recommend further evaluation with unenhanced abdominal CT or MR. Alternatively, if there is a history of malignancy, consider PET. 3. Liver lesion. For patients with low to average risk of malignancy, no further follow-up is necessary. For patients with high risk of malignancy, recommend follow-up abdominal CT or MR in 6 months or for suspicious lesions, multiphasic MR. 4. Incidental/non-acute findings are described above.
[2018-01-18] MEDS ORDERED: Piperacillin/Tazobact 3.375 gm 100 ML IV STA (03:52)
--- NOTE | 2018-01-18 05:39 | CP.PCM.CON ---
<Fadia Harris - Last Filed: 01/18/18 05:33> History of Present Illness - History of Present Illness History of Present Illness: General Surgery Consult note for Dr. Espino Consulted for: proctitis Patient is a 42M with poor hygeine who presented for anal/rectal pain and gerardo- rectal redness. Patient states that he has had pain inside his anus for several months that is better after defecation. Patient reports chronic constipation, stating he only has bowel movements once a week. Per ER a lot of stool was removed from the rectal vault upon their rectal exam. Patient denies any hematochezia, melena, diarrhea, nausea, vomiting, drainage, dysuria, hematuria, fevers, or chills. States that he has been to Dr. Gregory in her office for this and she gave him a rectal cream which did not help. Denies any history of trauma or insertion of any foreign objects in his rectum PMH: HTN, bipolar PSH: none ALL: none Review of Systems - Review of Systems All systems: reviewed and no additional remarkable complaints except (as per HPI ) Past Patient History - Infectious Disease Hx of Infectious Diseases: None - Tetanus Immunizations Tetanus Immunization: Unknown - Past Medical History & Family History Past Medical History?: Yes Past Family History: Reviewed and not pertinent - Past Social History Smoking Status: Never Smoked Alcohol: None Drugs: Denies Home Situation {Lives}: Other (senior living) - CARDIAC Hx Cardiac Disorders: Yes Hx Hypertension: Yes Hx Hypotension: No - PULMONARY Hx Respiratory Disorders: No Hx Tuberculosis: No - NEUROLOGICAL HX Cerebrovascular Accident: No Hx Seizures: No - HEMATOLOGICAL/ONCOLOGICAL Hx Cancer: No - INTEGUMENTARY Hx Dermatological Problems: No - MUSCULOSKELETAL/RHEUMATOLOGICAL Hx Falls: No - GASTROINTESTINAL Hx Gastrointestinal Disorders: No - GENITOURINARY/GYNECOLOGICAL Hx Genitourinary Disorders: No Hx Reproductive Disorders: No - PSYCHIATRIC Hx Psychophysiologic Disorder: Yes Hx Bipolar Disorder: Yes Hx Depression: No Hx Emotional Abuse: No Hx Physical Abuse: No Hx Substance Use: No Other/Comment: Developmental delay - SURGICAL HISTORY Hx Surgeries: No - ANESTHESIA Hx Anesthesia: No Hx Anesthesia Reactions: No Hx Malignant Hyperthermia: No Meds Allergies/Adverse Reactions: Allergies Allergy/AdvReac Type Severity Reaction Status Date / Time No Known Allergies Allergy Verified 01/17/18 21:15 Physical Exam - Constitutional Appears: Well, Non-toxic, No Acute Distress, Unkempt Additional comments: Poor hygeine with bad odor and dirty clothes - Head Exam Head Exam: ATRAUMATIC, NORMOCEPHALIC - Eye Exam Eye Exam: Normal appearance. absent: Conjunctival injection, Scleral icterus - ENT Exam ENT Exam: Mucous Membranes Moist, Normal Oropharynx - Respiratory Exam Respiratory Exam: NORMAL BREATHING PATTERN. absent: Accessory Muscle Use, Respiratory Distress - Cardiovascular Exam Cardiovascular Exam: RRR - GI/Abdominal Exam GI & Abdominal Exam: Soft. absent: Distended, Tenderness - Rectal Exam Rectal Exam: absent: Bloody Stool, Hemorrhoids, Fecal Impaction Additional comments: decreased sphincter tone, prostate non-palpable, no masses. perianal skin mildly erythematous between the intergluteal fold with evidence of poor post-bowel movement hygiene, no fluctuance, induration, or sign of cellulitis/abscess - Exam Exam: Circumcision. absent: Scrotal Swelling - Extremities Exam Extremities exam: Positive for: pedal pulses present. Negative for: calf tenderness, pedal edema - Back Exam Back exam: NORMAL INSPECTION. absent: CVA tenderness (L), CVA tenderness (R), rash noted - Neurological Exam Neurological exam: Alert, Oriented x3 - Psychiatric Exam Psychiatric exam: Normal Affect, Normal Mood - Skin Skin Exam: Dry, Intact, Normal Color, Warm Results - Vital Signs Recent Vital Signs: Last Vital Signs Temp 98.1 F 01/18/18 02:55 Pulse 85 01/18/18 02:55 Resp 19 01/18/18 02:55 BP 130/87 01/18/18 02:55 Pulse Ox 96 01/18/18 02:55 - Labs Result Diagrams: 01/18/18 01:02 01/18/18 01:02 Labs: Bedside Hemoccult blood test negative - Imaging and Cardiology CT scan - pelvis Status: Image reviewed by me, Report reviewed by me CT scan - abdomen Status: Image reviewed by me, Report reviewed by me Assessment & Plan - Assessment and Plan (Free Text) Assessment: 42M with proctitis and anal/rectal pain as well as adrenal incidentaloma and asymptomatic liver lesion identified on CT scan Plan: No surgical intervention indicated Antibiotics per Dr. Bennett Bowel regimen Hygeine education Monitor bowel function Sitz baths Will discuss with Dr. Espino, further recs per him Fadia aHrris, PGY2 <Nick Espino - Last Filed: 01/19/18 10:05> Meds - Medications Medications: Current Medications Famotidine (Pepcid) 40 mg PO HS [facility] Last Admin: 01/18/18 21:42 Dose: 40 mg Hydromorphone HCl (Dilaudid) 0.25 mg IVP Q6H PRN PRN Reason: Pain, Mild (1-3) Piperacillin Sod/Tazobactam Sod (Zosyn 3.375 In Ns 100ml) 100 mls @ 200 mls/hr IVPB Q6 [facility] PRN Reason: Protocol Stop: 01/25/18 12:01 Last Admin: 01/19/18 05:29 Dose: 200 mls/hr Multi-Ingredient Ointment (Prep-Hem) 0 ea TOP DAILY [facility] Last Admin: 01/18/18 10:36 Dose: 1 applic Polyethylene Glycol (Miralax) 17 gm PO BID [facility] Last Admin: 01/18/18 17:45 Dose: 17 gm Results - Vital Signs Recent Vital Signs: Last Vital Signs Temp 97.9 F 01/19/18 08:17 Pulse 73 01/19/18 08:17 Resp 20 01/19/18 08:17 BP 126/79 01/19/18 08:17 Pulse Ox 97 01/19/18 08:17 - Labs Result Diagrams: 01/19/18 07:00 01/19/18 07:00 Labs: Laboratory Results - last 24 hr 01/19/18 01/19/18 01/19/18 07:00 07:00 07:00 WBC 6.4 RBC 4.28 Hgb 13.6 L Hct 40.4 L MCV 94.4 MCH 31.8 MCHC 33.7 RDW 13.1 Plt Count 253 MPV 10.9 Sodium 143 Potassium 3.9 Chloride 109 H Carbon Dioxide 23 Anion Gap 14 BUN 14 Creatinine 1.0 Est GFR ( Amer) > 60 Est GFR (Non-Af Amer) > 60 Random Glucose 109 Calcium 9.2 Iron 134 TIBC 381 % Saturation 35 Triglycerides 187 H Cholesterol 221 H LDL Cholesterol Direct 180 H HDL Cholesterol 23 L TSH 3rd Generation 01/19/18 07:00 WBC RBC Hgb Hct MCV MCH MCHC RDW Plt Count MPV Sodium Potassium Chloride Carbon Dioxide Anion Gap BUN Creatinine Est GFR ( Amer) Est GFR (Non-Af Amer) Random Glucose Calcium Iron TIBC % Saturation Triglycerides Cholesterol LDL Cholesterol Direct HDL Cholesterol TSH 3rd Generation 2.15 Assessment & Plan - Assessment and Plan (Free Text) Assessment: Concur with conservative Rx--Frank Colonoscopy-no surgery required This consult done under my direct supervision Casey Espino MD FACS
[2018-01-18] MEDS ORDERED: HYDROmorphone 0.5 mg/0.5 ml ISec IVP PRN (07:19)
[2018-01-18] MEDS ORDERED: POLYETHYLENE GLYCOL 3350 17 GM/Dose PACKET PO SCH (10:00)
[2018-01-18] MEDS: Hemorrohoidal Ointment (2 oz) TOP SCH (10:36)
[2018-01-18] MEDS: Piperacillin/Tazobact 3.375 gm 100 ML IVPB SCH ×3 (12:21→23:05)
[2018-01-18] MEDS ORDERED: Influenza Vaccine 60 mcg/0.5 mL SYR (4YR UP) IM ONE (12:56)
--- NOTE | 2018-01-18 13:03 | CP.PCM.CON ---
<Adilene Milton - Last Filed: 01/18/18 13:09> History of Present Illness - History of Present Illness History of Present Illness: GI Fellow PGY 4 Consult Note This is a 42y male from a longterm presenting with complaints of rectal and buttock pain. Patient states that he had pain and rash in his buttock for a few weeks now and getting worse. Patient reports constipation and in the ER a lot of stool was removed from the rectal vault. Patient denies any hematochezia, melena, diarrhea, nausea, vomiting, drainage, dysuria, hematuria, fevers, or chills. Pt has seen Dr. Gregory in her office and she gave him a rectal cream which did not help. Pt reports feeling better after IV abx. No prior colonoscopy. ROS: A 12pt ROS was negative except as above. PMH: HTN, bipolar PSH: none SHx: Denies etoh, tobacco, drugs, lives in a longterm FHx: Neg for colon cancer Past Patient History - Infectious Disease Hx of Infectious Diseases: None - Tetanus Immunizations Tetanus Immunization: Unknown - Past Medical History & Family History Past Medical History?: Yes Past Family History: Reviewed and not pertinent - Past Social History Smoking Status: Never Smoked - CARDIAC Hx Cardiac Disorders: Yes Hx Hypertension: Yes - PULMONARY Hx Respiratory Disorders: No Hx Tuberculosis: No - NEUROLOGICAL HX Cerebrovascular Accident: No Hx Seizures: No - RENAL Hx Chronic Kidney Disease: No - HEMATOLOGICAL/ONCOLOGICAL Hx Cancer: No - INTEGUMENTARY Hx Dermatological Problems: No - MUSCULOSKELETAL/RHEUMATOLOGICAL Hx Falls: No - GASTROINTESTINAL Hx Gastrointestinal Disorders: No - GENITOURINARY/GYNECOLOGICAL Hx Genitourinary Disorders: No - PSYCHIATRIC Hx Psychophysiologic Disorder: Yes Hx Bipolar Disorder: Yes Hx Depression: No Hx Emotional Abuse: No Hx Physical Abuse: No Other/Comment: Developmental delay - SURGICAL HISTORY Hx Surgeries: No - ANESTHESIA Hx Anesthesia: No Hx Anesthesia Reactions: No Hx Malignant Hyperthermia: No Meds Allergies/Adverse Reactions: Allergies Allergy/AdvReac Type Severity Reaction Status Date / Time No Known Allergies Allergy Verified 01/17/18 21:15 - Medications Medications: Current Medications Famotidine (Pepcid) 40 mg PO HS [facility] Hydromorphone HCl (Dilaudid) 0.25 mg IVP Q6H PRN PRN Reason: Pain, Mild (1-3) Piperacillin Sod/Tazobactam Sod (Zosyn 3.375 In Ns 100ml) 100 mls @ 200 mls/hr IVPB Q6 [facility] PRN Reason: Protocol Stop: 01/25/18 12:01 Last Admin: 01/18/18 12:21 Dose: 200 mls/hr Multi-Ingredient Ointment (Prep-Hem) 0 ea TOP DAILY [facility] Last Admin: 01/18/18 10:36 Dose: 1 applic Polyethylene Glycol (Miralax) 17 gm PO DAILY [facility] Last Admin: 01/18/18 10:35 Dose: 17 gm Physical Exam - Constitutional Appears: Non-toxic, No Acute Distress - Head Exam Head Exam: ATRAUMATIC, NORMAL INSPECTION, NORMOCEPHALIC - Eye Exam Eye Exam: EOMI, Normal appearance, PERRL - ENT Exam ENT Exam: Mucous Membranes Moist - Respiratory Exam Respiratory Exam: NORMAL BREATHING PATTERN - Cardiovascular Exam Cardiovascular Exam: RRR - GI/Abdominal Exam GI & Abdominal Exam: Normal Bowel Sounds, Soft. absent: Distended, Guarding, Organomegaly, Tenderness - Rectal Exam Rectal Exam: Deferred - Extremities Exam Extremities exam: Positive for: normal inspection - Neurological Exam Neurological exam: Alert, Oriented x3 - Psychiatric Exam Psychiatric exam: Normal Affect, Normal Mood - Skin Skin Exam: Dry, Intact, Normal Color, Warm Results - Vital Signs Recent Vital Signs: Last Vital Signs Temp 98.9 F 01/18/18 08:40 Pulse 79 01/18/18 08:40 Resp 16 01/18/18 08:40 BP 145/87 01/18/18 08:40 Pulse Ox 96 01/18/18 08:40 - Labs Result Diagrams: 01/18/18 01:02 01/18/18 01:02 Assessment & Plan - Assessment and Plan (Free Text) Assessment: This is a 42yM presenting with rectal pain and buttock rash. 1. Proctitis 2. Constipation 3. Perianal rash 4. Liver lesion Plan: -Continue supportive care with pain control -CT imaging reviewed with mild thickening of rectum, stool burden, small liver lesion -Pt will need outpt followup for liver lesion -Recommend bowel regimen with miralax bid -Sitz bath -Abx per primary team -Pt will need outpt colonoscopy -Will follow closely <Tony Song - Last Filed: 01/18/18 13:14> Meds - Medications Medications: Current Medications Famotidine (Pepcid) 40 mg PO HS [facility] Hydromorphone HCl (Dilaudid) 0.25 mg IVP Q6H PRN PRN Reason: Pain, Mild (1-3) Piperacillin Sod/Tazobactam Sod (Zosyn 3.375 In Ns 100ml) 100 mls @ 200 mls/hr IVPB Q6 [facility] PRN Reason: Protocol Stop: 01/25/18 12:01 Last Admin: 01/18/18 12:21 Dose: 200 mls/hr Multi-Ingredient Ointment (Prep-Hem) 0 ea TOP DAILY [facility] Last Admin: 01/18/18 10:36 Dose: 1 applic Polyethylene Glycol (Miralax) 17 gm PO DAILY [facility] Last Admin: 01/18/18 10:35 Dose: 17 gm Results - Vital Signs Recent Vital Signs: Last Vital Signs Temp 98.9 F 01/18/18 08:40 Pulse 79 01/18/18 08:40 Resp 16 01/18/18 08:40 BP 145/87 01/18/18 08:40 Pulse Ox 96 01/18/18 08:40 - Labs Result Diagrams: 01/18/18 01:02 01/18/18 01:02 Attending/Attestation - Attestation I have personally seen and examined this patient.: Yes I have fully participated in the care of the patient.: Yes I have reviewed all pertinent clinical information: Yes Notes (Text): 01/18/18 13:13 42 year old male who presents with buttock pain found to have mild proctitis incidentally on CT scan and subcentimeter liver lesion on CT. Recommend outpatient follow up for colonoscopy. Recommend outpatient triple phase CT scan in 3-6 months to re-eval liver. Will sign off.
--- NOTE | 2018-01-18 17:16 | CP.PCM.CON ---
History of Present Illness - History of Present Illness History of Present Illness: 42 year old male with PMH of HTN, bipolar disorder, history of left hand cellulitis came in to [facility] [place] complaining of rectal and anal pain. He states that he has been having this pain on and off for about a month now and has been having chronic constipation. He denies blood in his stools, no nausea or vomiting, no diarrhea, no recent travel outside of [place] in the past 3 months, no fever or chills, no headache or dizziness, no chest pain, no SOB, no cough or colds, no sore throat, no dysuria. In the ED, fecal disimpaction was done which relieved some of the pain for the patient. CT A/P was done which showed mild proctitis. Infectious Diseases consult is requested to further evaluate and manage. Review of Systems - Review of Systems All systems: reviewed and no additional remarkable complaints except (as per HPI ) Past Patient History - Infectious Disease Hx of Infectious Diseases: None - Tetanus Immunizations Tetanus Immunization: Unknown - Past Medical History & Family History Past Medical History?: Yes Past Family History: Reviewed and not pertinent - Past Social History Smoking Status: Never Smoked - CARDIAC Hx Cardiac Disorders: Yes Hx Hypertension: Yes - PULMONARY Hx Respiratory Disorders: No Hx Tuberculosis: No - NEUROLOGICAL HX Cerebrovascular Accident: No Hx Seizures: No - RENAL Hx Chronic Kidney Disease: No - HEMATOLOGICAL/ONCOLOGICAL Hx Cancer: No - INTEGUMENTARY Hx Dermatological Problems: No - MUSCULOSKELETAL/RHEUMATOLOGICAL Hx Falls: No - GASTROINTESTINAL Hx Gastrointestinal Disorders: No - GENITOURINARY/GYNECOLOGICAL Hx Genitourinary Disorders: No - PSYCHIATRIC Hx Psychophysiologic Disorder: Yes Hx Bipolar Disorder: Yes Hx Depression: No Hx Emotional Abuse: No Hx Physical Abuse: No Other/Comment: Developmental delay - SURGICAL HISTORY Hx Surgeries: No - ANESTHESIA Hx Anesthesia: No Hx Anesthesia Reactions: No Hx Malignant Hyperthermia: No Meds Allergies/Adverse Reactions: Allergies Allergy/AdvReac Type Severity Reaction Status Date / Time No Known Allergies Allergy Verified 01/17/18 21:15 - Medications Medications: Current Medications Polyethylene Glycol (Miralax) 17 gm PO DAILY [facility] Physical Exam - Constitutional Appears: Non-toxic, Chronically Ill - Head Exam Head Exam: NORMAL INSPECTION - Neck Exam Neck exam: Negative for: Meningismus - Respiratory Exam Respiratory Exam: Decreased Breath Sounds - Cardiovascular Exam Cardiovascular Exam: +S1, +S2 - GI/Abdominal Exam GI & Abdominal Exam: Soft. absent: Tenderness Results - Vital Signs Recent Vital Signs: Last Vital Signs Temp 98.4 F 01/18/18 05:59 Pulse 84 01/18/18 05:59 Resp 18 01/18/18 05:59 BP 128/76 01/18/18 05:59 Pulse Ox 100 01/18/18 05:40 - Labs Result Diagrams: 01/18/18 01:02 01/18/18 01:02 Assessment & Plan - Assessment and Plan (Free Text) Plan: Assessment mild proctitis probably related to fecal impaction HTN bipolar disorder history of left hand cellulitis Plan Started patient on Zosyn follow up HIV test when ready for discharge, the patient can be switched to PO Augmentin for 5-7 days
[2018-01-18] MEDS: POLYETHYLENE GLYCOL 3350 17 GM/Dose PACKET PO SCH (17:45)
[2018-01-19] MEDS: Piperacillin/Tazobact 3.375 gm 100 ML IVPB SCH ×2 (05:29→11:02)
[2018-01-19 07:33] LABS: HEMOGLOBIN 13.6 g/dL (14.0-18.0); MEAN CELL VOLUME 94.4 fl (80.0-105.0); MEAN CORPUSCULAR HEMOGLOBIN 31.8 pg (25.0-35.0); MEAN CORPUSCULAR HGB CONC 33.7 g/dl (31.0-37.0); MEAN PLATELET VOLUME 10.9 fl (7.0-11.0); RBC 4.28 10^6/uL (3.5-6.1); RED CELL DISTRIBUTION WIDTH 13.1 % (11.5-14.5); WHITE BLOOD COUNT 6.4 10^3/ul (4.5-11.0)
[2018-01-19 07:52] LABS: IRON 134 ug/dL (45-180)
[2018-01-19 07:53] LABS: BLOOD UREA NITROGEN 14 mg/dL (7-21); CALCIUM 9.2 mg/dL (8.4-10.5); GFR AFRICAN-AMERICAN > 60; GFR NON-AFRICAN AMERICAN > 60; HDL CHOLESTEROL 23 mg/dL (29-60)
[2018-01-19 08:04] LABS: LDL CHOLESTEROL 180 mg/dL (0-129)
[2018-01-19 08:09] LABS: % IRON SATURATION 35 % (20-55); TOTAL IRON BINDING CAPACITY 381 ug/dL (261-462)
[2018-01-19 08:18] VITALS: BP 126/79; PULSE 73; RESP 20; TEMP 97.9; O2SAT 97
--- NOTE | 2018-01-19 08:53 | HP ---
CHIEF COMPLAINT: Rectal pain. HISTORY OF PRESENT ILLNESS: Mr. Marcelo Huynh is a 42-year-old male, came to the emergency room with pain in the buttocks, rash and itchy to the buttock area since one day. Patient denies abdominal pain. No nausea, vomiting, or diarrhea. No chest pain. No shortness of breath. No fever. No chills. He stated he has been having on and off diarrhea for a while now. Denies fever or chills. Patient states that he has pain in the buttocks and noticed red rash, irritation on the buttocks. No medications at home. Patient states he had this problem before, a couple of days. We admitted the patient, called ID, Surgery, and GI, started antibiotics. Discussion done with patient's nursing drafting supervisor. PAST MEDICAL HISTORY: Hypertension, bipolar, developmental delay. FAMILY HISTORY: Father and mother noncontributory, unknown. HABITS: Never smoked. Alcohol, yes. Substance abuse, no. ALLERGIES: THE PATIENT IS NOT ALLERGIC WITH ANY MEDICATIONS. HOME MEDICATIONS: Vistaril and some psych medications. REVIEW OF SYSTEMS: The patient is seen and examined at the bed side, looking comfortable. No nausea, vomiting or diarrhea. No hematuria. No hematochezia. No swelling of the legs. No chest pain. No palpitation. No headache. No dizziness. No fever. No chills. No shortness of breath. PHYSICAL EXAMINATION: VITAL SIGNS: Temperature 97.7, pulse 86, blood pressure 130/80, respiratory rate 20. HEENT: Head: Normocephalic, atraumatic. Eyes: PERRLA. Extraocular muscles intact. Conjunctivae clear. Nose: Patent. Mucous membranes moist. NECK: Supple. No carotid bruit. No JVD, no thyromegaly. CHEST: Bilaterally symmetrical. HEART: S1 and S2 positive. LUNGS: Clear to auscultation. ABDOMEN: Soft. Bowel sounds present. No organomegaly. EXTREMITIES: No edema. No cyanosis. NEUROLOGIC: Patient is awake and alert. Moving all four extremities. No focal deficits. LABORATORY DATA: White blood cells 11.7, hemoglobin 13.3, hematocrit 39.3, platelets 250. Sodium 143, potassium 3.8, BUN 17, creatinine 0.9, glucose of 104. ASSESSMENT AND PLAN: Mr. Marcelo Huynh is a 42-year-old male with anemia, abnormal liver function test, mild proctitis probably related to fecal impaction or diarrhea, hypertension, bipolar, history of left hand cellulitis in the past, started on Zosyn. Follow up with human immunodeficiency virus test. Seen by Infectious Disease, Dr. Darnell Ash, and Dr. Tony Song, automation application engineer. anal rash, continue supportive care with pain control. CT scan showed mild thickening of the rectum with stool burden, small liver lesion. Patient needs followup of liver lesion as per Dr. Song. MiraLax given. Sitz bath ordered. Needs colonoscopy as outpatient as per Dr. Song. Seen by the Surgical Team. Adrenal incidental adenoma. No surgical intervention at this time. Hygiene educated. bowel function. We will follow up. Cinthia Gregory MD [id number]
[2018-01-19] MEDS: POLYETHYLENE GLYCOL 3350 17 GM/Dose PACKET PO SCH (10:58)
[2018-01-19] MEDS: Hemorrohoidal Ointment (2 oz) TOP SCH (11:02)
[2018-01-19] MEDS ORDERED: Influenza Vaccine 60 mcg/0.5 mL SYR (4YR UP) IM ONE (12:10)
--- NOTE | 2018-01-21 04:51 | DS ---
CHIEF COMPLAINT: Rectal pain. HISTORY OF PRESENT ILLNESS: Mr. Marcelo Huynh is a 42-year-old male, private patient, came to the Emergency Department with pain in the buttocks, rash, itchy to the buttocks area since one day. Patient denies abdominal pain. No nausea or vomiting. No chest pain. No fever. No chills. He stated he has been having on and off diarrhea for a while. He has pain in the buttocks and noticed red rash, irritation on the buttocks. Not taking any medications at home. We admitted the patient. Did CAT scan of the abdomen and pelvis. Seen by Dr. Nick Espino, Surgeon; Dr. Tony Song, Wildlife Officer; Dr. Darnell Ash, Infectious Disease. Discussion done with Dr. Nick Espino. Patient was okay to discharge as per Dr. Darnell Ash with p.o. antibiotics. Later on, I received a call from the hospital that blood culture one tube is positive. Now, I spoke to Dr. Bennett on 01/20/2018, and according to him, it is contamination. He will put his addendum. PAST MEDICAL HISTORY: Hypertension, bipolar developmental delay. FAMILY HISTORY: Father and mother, noncontributory. HABITS: Never smoked. Alcohol, yes. Substance abuse, no. ALLERGIES: THE PATIENT IS NOT ALLERGIC WITH ANY MEDICATIONS. HOME MEDICATIONS: Vistaril and psych medications. REVIEW OF SYSTEMS: The patient is seen and examined at bedside, looking comfortable. Dr. Nick Espino, patient's flight manager, and the patient were sitting. Length of time discussion done with the flight manager and Dr. Espino. No fever, no chills. Pain has gone. No hematuria or hematochezia. No headache. No dizziness. No fever. No chills. Wants to go home. PHYSICAL EXAMINATION: VITAL SIGNS: Temperature 97.9, pulse 73, blood pressure 126/79, respiratory rate 20. HEENT: Head: Normocephalic, atraumatic. Eyes: PERRLA. Extraocular muscles intact. Conjunctivae clear. Nose: Patent. NECK: Supple. No carotid bruit. No JVD or thyromegaly. CHEST: Bilaterally symmetrical. HEART: S1 and S2 positive. LUNGS: Clear to auscultation. ABDOMEN: Soft. Bowel sounds present. No organomegaly. EXTREMITIES: No edema. No cyanosis. NEUROLOGIC: Patient is awake and alert. Moving all four extremities. No focal deficit. LABORATORY DATA: White blood cells 6.4, hemoglobin 13.6, hematocrit 40.4, platelets 253. Sodium 143, potassium 3.9, BUN 14, creatinine 1.0, hemoglobin A1c 6.0. Triglyceride 187, cholesterol 221. ASSESSMENT AND PLAN: Mr. Marcelo Huynh is a 42-year-old male with anemia, hyperchloremia, hypercholesterolemia, hypertriglyceridemia, history of hypertension, bipolar disorder, history of left hand cellulitis in the past, came with a rectal and anal pain, mild proctitis - probably related to fecal impaction or diarrhea, hypertension. Patient was given Zosyn in the hospital. Human immunodeficiency virus test done. We will follow up. Discharged home with Augmentin for 7 days, as patient is cleared by Infectious Disease. Seen by Dr. Tony Song, Wildlife Officer. Patient has mild proctitis incidentally found on CT scan, and a 7-cm liver lesion on CT. Recommended outpatient followup for colonoscopy. Recommended outpatient triple phase CT scan in 3 to 6 months to reevaluate liver. GI signed off and cleared the patient for discharge. Seen by Dr. Nick Espino. According to Dr. Espino, no surgery required. Even discussion done [id number] with Dr. Espino, patient, and patient's nursing department chairperson. Patient is discharged home with prescriptions. We will follow up as an outpatient. Today I have discussion done with Dr. Bennett because the patient had one of the bottles with coagulase negative Staphylococci, most likely contamination. No need of specific treatment for this as per Dr. Darnell Ash. We will follow up. Cinthia Gregory MD
== END 2018-01-19 12:36 | disposition home or self-care (01) | DRG 395 ==
LOC: ED 21:08 → ERH 01-18 03:54 → 5RSO 01-18 06:02 → OBSVTOIN 01-18 20:15
PROVIDERS: ADMIT Internal Medicine; ATTEND Internal Medicine
DX: K62.89 Other specified diseases of anus and rectum (principal); D35.00 Benign neoplasm of unspecified adrenal gland; R21 Rash and other nonspecific skin eruption; F31.9 Bipolar disorder, unspecified; I10 Essential (primary) hypertension; K56.41 Fecal impaction; K76.9 Liver disease, unspecified; R62.50 Unspecified lack of expected normal physiological development in childhood; D64.9 Anemia, unspecified

== ENCOUNTER 2018-03-07 21:35 | Inpatient (IN) | payer MEDICARE, MEDICAID ==
[2018-03-07 21:53] VITALS: BMI 32.8
--- NOTE | 2018-03-07 22:08 | ED PDOC ---
Arrival/HPI - General Chief Complaint: Lower Extremity Problem/Injury Time Seen by Provider: 03/07/18 21:57 Historian: Patient, Caregiver - History of Present Illness Narrative History of Present Illness (Text): 03/07/18 22:07 42 year old male, whose past medical history includes hypertension, bipolar, and developmental delay, presents to the emergency department from a residential and accompanied by caregiver complaining of left lower left leg pain and redness. Patient reports he was walking around the residential when he began realizing the pain. Patient is able to ambulate without any difficulty. Patient denies any fever, chills, chest pain, shortness of breath, nausea, vomiting, diarrhea, urinary symptoms, back pain, neck pain, headache, dizziness, or any other complaints. PMD: Dr. Gregory Symptom Onset: Gradual Symptom Course: Unchanged Activities at Onset: Light Context: Home (snf) Past Medical History - Provider Review Nursing Documentation Reviewed: Yes - Past History Past History: Non-Contributing - Infectious Disease Hx of Infectious Diseases: None - Tetanus Immunization Tetanus Immunization: Unknown - Cardiac Hx Cardiac Disorders: Yes Hx Hypertension: Yes - Pulmonary Hx Respiratory Disorders: No - Neurological Hx Neurological Disorder: No - HEENT Hx HEENT Disorder: No - Renal Hx Renal Disorder: No - Endocrine/Metabolic Hx Endocrine Disorders: No - Hematological/Oncological Hx Blood Disorders: No - Integumentary Hx Dermatological Disorder: No - Musculoskeletal/Rheumatological Hx Musculoskeletal Disorders: No - Gastrointestinal Hx Gastrointestinal Disorders: No - Genitourinary/Gynecological Hx Genitourinary Disorders: No - Psychiatric Hx Psychophysiologic Disorder: Yes Hx Bipolar Disorder: Yes Hx Physical Abuse: No Hx Substance Use: No Other/Comment: Developmental delay - Past Surgical History Past Surgical History: No Previous - Anesthesia Hx Anesthesia: No Hx Anesthesia Reactions: No Hx Malignant Hyperthermia: No - Suicidal Assessment Feels Threatened In Home Enviroment: No Family/Social History - Physician Review Nursing Documentation Reviewed: Yes Family/Social History: No Known Family HX Smoking Status: Never Smoked Hx Alcohol Use: Yes Hx Substance Use: No Hx Substance Use Treatment: No Allergies/Home Meds Allergies/Adverse Reactions: Allergies No Known Allergies Allergy (Verified 03/07/18 21:54) Home Medications: Home Meds Medication Instructions Recorded Confirmed hydrOXYzine Pamoate [Vistaril] 50 mg PO PRN PRN 11/15/15 01/17/18 Review of Systems - Physician Review All systems were reviewed & negative as marked: Yes - Review of Systems Constitutional: absent: Fevers, Other (Chills) Respiratory: absent: SOB Cardiovascular: absent: Chest Pain Gastrointestinal: absent: Diarrhea, Nausea, Vomiting Genitourinary Male: absent: Dysuria, Frequency, Hematuria Skin: Cellulitis (pain and redness to the left lower leg ) Neurological: absent: Headache, Dizziness Physical Exam Vital Signs Reviewed: Yes Vital Signs Temp Pulse Resp BP Pulse Ox 03/07/18 21:50 99.5 F 101 H 19 139/84 98 Temperature: Afebrile Blood Pressure: Normal Pulse: Tachycardic Respiratory Rate: Normal Appearance: Positive for: Well-Appearing, Non-Toxic, Comfortable Pain Distress: None Mental Status: Positive for: Alert and Oriented X 3 - Systems Exam Head: Present: Atraumatic, Normocephalic Pupils: Present: PERRL Extroacular Muscles: Present: EOMI Conjunctiva: Present: Normal Mouth: Present: Moist Mucous Membranes Neck: Present: Normal Range of Motion Respiratory/Chest: Present: Clear to Auscultation, Good Air Exchange. No: Respiratory Distress, Accessory Muscle Use Cardiovascular: Present: Regular Rate and Rhythm, Normal S1, S2. No: Murmurs Abdomen: No: Tenderness, Distention, Peritoneal Signs Back: Present: Normal Inspection Upper Extremity: Present: Normal Inspection. No: Cyanosis, Edema Lower Extremity: Present: Erythema, Other (Cellulitis to the dorsum of the left foot up to the left knee. Anteriorly not posteriorly ). No: Edema Neurological: Present: GCS=15, CN II-XII Intact, Speech Normal Skin: Present: Warm, Dry, Normal Color. No: Rashes Psychiatric: Present: Alert, Oriented x 3, Normal Insight, Normal Concentration Medical Decision Making ED Course and Treatment: 03/07/18 22:07 Impression: 42 year old male presents complaining of pain and redness to the left lower leg. PE shows cellulitis to the dorsum of the left foot up to the left knee. Anteriorly not posteriorly Plan: -- VBG -- Labs -- Vancomycin, Zosyn -- Blood Culture -- Duplex left lower extrem US -- Reassess and disposition Prior Visits: Notes and results from previous visits were reviewed. Patient was last seen in the emergency department on 01/18/18 presents complaining of pain to the buttocks and rash and itching to the buttocks. Patient was discharged. Progress Notes: Doppler US Impression: Negative 03/08/18 00:[address] Gregory who is aware and agrees with the plan. Accepts patient into her service. - Lab Interpretations Lab Results: 03/07/18 22:25 03/07/18 22:25 Lab Results 03/07/18 22:25: Sodium 139, Chloride 101, Potassium 3.5 L, Carbon Dioxide 25, Anion Gap 16, BUN 14, Creatinine 1.2, Est GFR ( Amer) > 60, Est GFR (Non- Af Amer) > 60, Random Glucose 130 H, Calcium 9.2, Total Bilirubin 0.6, AST 38, ALT 43, Alkaline Phosphatase 37 L, Total Protein 8.2, Albumin 4.6, Globulin 3.6 , Albumin/Globulin Ratio 1.3 03/07/18 22:25: pO2 22 L, VBG pH 7.38, VBG pCO2 47.0, VBG HCO3 27.8, VBG Total CO2 29.2 H, VBG O2 Sat (Calc) 58.6, VBG Base Excess 2.0, VBG Potassium 3.7, Sodium 137.0, Chloride 104.0, Glucose 139 H, Lactate 1.3, FiO2 21.0, Venous Blood Potassium 3.7 03/07/18 22:25: PT 14.7 H, INR 1.28 H 03/07/18 22:25: WBC 9.4 D, RBC 4.07, Hgb 12.9 L, Hct 37.9 L, MCV 93.1, MCH 31.7 , MCHC 34.0, RDW 13.1, Plt Count 212, MPV 10.7, Gran % 77.0 H, Lymph % (Auto) 16.4 L, [place] % (Auto) 6.3 H, Eos % (Auto) 0.2 L, Baso % (Auto) 0.1, Gran # 7.27 H, Lymph # (Auto) 1.6, [place] # (Auto) 0.6, Eos # (Auto) 0.0, Baso # (Auto) 0.01 I have reviewed the lab results: Yes - RAD Interpretation Radiology Orders: 03/07/18 22:11 DUPLEX LOWER EXTRM VEIN LEFT [US] Stat - Medication Orders Current Medication Orders: Discontinued Medications Vancomycin HCl (Vancomycin 1gm) 1 gm in 250 mls @ 167 mls/hr IVPB STAT STA PRN Reason: Protocol Stop: 03/07/18 23:40 Last Admin: 03/08/18 00:11 Dose: 167 mls/hr eMAR Start Stop Document 03/08/18 00:11 RD (Rec: 03/08/18 00:11 RD [id number]) Intravenous Solution Start Date 03/08/18 Start Time 00:11 End Date 03/08/18 End time 01:41 Total Infusion Time 90 Piperacillin Sod/Tazobactam Sod (Zosyn 3.375 In Ns 100ml) 100 mls @ 200 mls/hr IVPB STAT STA PRN Reason: Protocol Stop: 03/07/18 22:40 Last Admin: 03/07/18 22:43 Dose: 200 mls/hr eMAR Start Stop Document 03/07/18 22:43 RD (Rec: 03/07/18 22:44 RD [id number]) Intravenous Solution Start Date 03/07/18 Start Time 22:44 End Date 03/07/18 End time 23:14 Total Infusion Time 30 - Scribe Statement The provider has reviewed the documentation as recorded by the [place] Ryan Provider Scribe Attestation: All medical record entries made by the [place] were at my direction and personally dictated by me. I have reviewed the chart and agree that the record accurately reflects my personal performance of the history, physical exam, medical decision making, and the department course for this patient. I have also personally directed, reviewed, and agree with the discharge instructions and disposition. Disposition/Present on Arrival - Present on Arrival Any Indicators Present on Arrival: No History of DVT/PE: No History of Uncontrolled Diabetes: No Urinary Catheter: No History of Decub. Ulcer: No History Surgical Site Infection Following: None - Disposition Have Diagnosis and Disposition been Completed?: Yes Diagnosis: Cellulitis Disposition: HOSPITALIZED Disposition Time: 00:25 Patient Plan: Admission, Other (med surg) Patient Problems: Current Active Problems Problem Status Onset Cellulitis Acute Discharge Instructions (ExitCare): Cellulitis (ED) Referrals: Cinthia Gregory MD [Primary Care Provider] - Follow up with primary Forms: [employer] (Micronesian)
[2018-03-07] MEDS ORDERED: Piperacillin/Tazobact 3.375 gm 100 ML IVPB STA (22:11)
[2018-03-07] MEDS ORDERED: Vancomycin 1gm in NS 250ml 1 GM/250 ML BAG IVPB STA (22:11)
[2018-03-07 22:41] LABS: VENOUS BLOOD GAS PO2 22 mm/Hg (30-55); VENOUS BLOOD PH 7.38 (7.32-7.43)
[2018-03-07 22:46] LABS: BASO # 0.01 K/mm3 (0.0-2.0); BASO % 0.1 % (0.0-3.0); EOS % 0.2 % (1.5-5.0); GRAN # 7.27 (1.4-6.5); HEMOGLOBIN 12.9 g/dL (14.0-18.0); LYMPH # 1.6 (1.2-3.4); LYMPH % 16.4 % (22.0-35.0); MEAN CELL VOLUME 93.1 fl (80.0-105.0); MEAN CORPUSCULAR HEMOGLOBIN 31.7 pg (25.0-35.0); MEAN PLATELET VOLUME 10.7 fl (7.0-11.0); MONO # 0.6 (0.1-0.6); MONO % 6.3 % (1.0-6.0); RBC 4.07 10^6/uL (3.5-6.1); RED CELL DISTRIBUTION WIDTH 13.1 % (11.5-14.5); WHITE BLOOD COUNT 9.4 10^3/ul (4.5-11.0)
[2018-03-07 22:53] LABS: ALB/GLOB RATIO 1.3 (1.1-1.8); ALBUMIN 4.6 g/dL (3.0-4.8); ALT/SGPT 43 U/L (7-56); AST/SGOT 38 U/L (17-59); BLOOD UREA NITROGEN 14 mg/dL (7-21); CALCIUM 9.2 mg/dL (8.4-10.5); GFR AFRICAN-AMERICAN > 60; GFR NON-AFRICAN AMERICAN > 60
[2018-03-07 22:59] LABS: INR 1.28 (0.93-1.08); PROTHROMBIN TIME 14.7 SECONDS (9.4-12.5)
[2018-03-08] MEDS: ceFAZolin 1 gm in NS 1 GM/100 ML BAG IVPB SCH ×3 (06:46→21:21)
--- NOTE | 2018-03-08 10:54 | US ---
PROCEDURE: Left lower extremity venous US HISTORY: Leg pain and swelling. Evaluate for DVT. PHYSICIAN(S): Minesh Rowell MD. TECHNIQUE: Duplex sonography and color-flow Doppler with graded compression were used to evaluate the deep venous system of the left lower extremity. FINDINGS: The visualized deep venous system of the left lower extremity is sonographically normal and compressible. Normal wave forms and augmentation are seen. There is no sonographic evidence for deep venous thrombosis in the visualized segments of the left lower extremity. IMPRESSION: 1. No sonographic evidence for deep venous thrombosis in the visualized segments of the left lower extremity.
[2018-03-08] MEDS ORDERED: Potassium Chloride 20 mEq ER Tab PO ONE (11:22)
[2018-03-08 12:51] LABS: IRON 21 ug/dL (45-180)
[2018-03-08 12:58] LABS: ALB/GLOB RATIO 1.3 (1.1-1.8); ALBUMIN 4.2 g/dL (3.0-4.8); BILIRUBIN,DIRECT 0.3 mg/dL (0.0-0.4)
[2018-03-08 13:01] LABS: % IRON SATURATION 6 % (20-55); TOTAL IRON BINDING CAPACITY 361 ug/dL (261-462)
[2018-03-08] MEDS: Divalproex 500 mg ER (ONCE DAILY formulation) PO SCH (14:25)
--- NOTE | 2018-03-08 15:00 | CP.PCM.CON ---
History of Present Illness - History of Present Illness History of Present Illness: 42 year old male with PMH of mild proctitis probably related to fecal impaction , HTN, bipolar disorder, history of left hand cellulitis, developmental delay [place] [facility] [place] of left leg pain, swelling and redness. He states that he bumped his leg on a hard surface several days ago. He denies fever or chills, no nausea or vomiting, no soaking of his feet or legs in water, no walking barefoot on soil, no abdominal pain, no rhinorrhea, no cough, no sore throat, no diarrhea, no dysuria, denies animal contacts. Infectious Diseases consult is requested to further evaluate and manage. Review of Systems - Review of Systems All systems: reviewed and no additional remarkable complaints except (as per HPI ) Past Patient History - Infectious Disease Hx of Infectious Diseases: None - Tetanus Immunizations Tetanus Immunization: Unknown - Past Medical History & Family History Past Medical History?: Yes - Past Social History Smoking Status: Never Smoked - CARDIAC Hx Cardiac Disorders: Yes Hx Hypertension: Yes - PULMONARY Hx Respiratory Disorders: No - NEUROLOGICAL Hx Neurological Disorder: No - HEENT Hx HEENT Problems: No - RENAL Hx Chronic Kidney Disease: No - ENDOCRINE/METABOLIC Hx Endocrine Disorders: No - HEMATOLOGICAL/ONCOLOGICAL Hx Blood Disorders: No - INTEGUMENTARY Hx Dermatological Problems: No - MUSCULOSKELETAL/RHEUMATOLOGICAL Hx Musculoskeletal Disorders: No - GASTROINTESTINAL Hx Gastrointestinal Disorders: No - GENITOURINARY/GYNECOLOGICAL Hx Genitourinary Disorders: No - PSYCHIATRIC Hx Psychophysiologic Disorder: Yes Hx Bipolar Disorder: Yes Hx Physical Abuse: No Hx Substance Use: No Other/Comment: Developmental delay - SURGICAL HISTORY Hx Surgeries: No - ANESTHESIA Hx Anesthesia: No Hx Anesthesia Reactions: No Hx Malignant Hyperthermia: No Meds Allergies/Adverse Reactions: Allergies Allergy/AdvReac Type Severity Reaction Status Date / Time No Known Allergies Allergy Verified 03/07/18 21:54 Physical Exam - Constitutional Appears: Chronically Ill - Head Exam Head Exam: NORMAL INSPECTION - ENT Exam ENT Exam: Mucous Membranes Moist - Neck Exam Neck exam: Negative for: Meningismus - Respiratory Exam Respiratory Exam: Decreased Breath Sounds - Cardiovascular Exam Cardiovascular Exam: +S1, +S2 - GI/Abdominal Exam GI & Abdominal Exam: Soft. absent: Tenderness - Extremities Exam Additional comments: left leg with erythema and swelling mostly on the anterior area Results - Vital Signs Recent Vital Signs: Last Vital Signs Temp 99.3 F 05/01/18 02:18 Pulse 98 H 03/08/18 01:21 Resp 18 03/08/18 01:21 BP 145/99 H 03/08/18 01:21 Pulse Ox 99 03/08/18 01:21 - Labs Result Diagrams: 03/07/18 22:25 03/07/18 22:25 Assessment & Plan - Assessment and Plan (Free Text) Plan: Assessment left leg cellulitis history of mild proctitis probably related to fecal impaction HTN bipolar disorder history of left hand cellulitis Plan Started patient Cefazolin and will follow up blood cx and monitor clinical response duplex U/S did not show DVT
[2018-03-08 17:28] LABS: FOLATE 16.1 ng/mL
[2018-03-09] MEDS: ceFAZolin 1 gm in NS 1 GM/100 ML BAG IVPB SCH ×3 (05:30→21:57)
[2018-03-09 06:37] LABS: HEMOGLOBIN 12.2 g/dL (14.0-18.0); MEAN CELL VOLUME 92.9 fl (80.0-105.0); MEAN CORPUSCULAR HGB CONC 33.4 g/dl (31.0-37.0); MEAN PLATELET VOLUME 10.9 fl (7.0-11.0); RBC 3.93 10^6/uL (3.5-6.1); RED CELL DISTRIBUTION WIDTH 13.3 % (11.5-14.5); WHITE BLOOD COUNT 6.6 10^3/ul (4.5-11.0)
[2018-03-09 06:43] LABS: ALB/GLOB RATIO 1.2 (1.1-1.8); ALBUMIN 4.2 g/dL (3.0-4.8); ALT/SGPT 49 U/L (7-56); AST/SGOT 31 U/L (17-59); BLOOD UREA NITROGEN 12 mg/dL (7-21); GFR AFRICAN-AMERICAN > 60; GFR NON-AFRICAN AMERICAN > 60
[2018-03-09 07:54] VITALS: RESP 18; O2SAT 95
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
[2018-03-09] MEDS: Divalproex 500 mg ER (ONCE DAILY formulation) PO SCH (10:44)
--- NOTE | 2018-03-09 17:05 | CP.PCM.PN ---
Subjective - Date & Time of Evaluation Date of Evaluation: 03/09/18 Time of Evaluation: 11:00 - Subjective Subjective: Left leg is less swollen, no fevers, not in distress, afebrile, much improved pain of the left leg. Objective - Vital Signs/Intake and Output Vital Signs (last 24 hours): Temp Pulse Resp BP Pulse Ox 98 F 79 18 121/80 95 03/09/18 07:54 03/09/18 07:54 03/09/18 07:54 03/09/18 07:54 03/09/18 07:54 Intake and Output: 03/09/18 03/09/18 06:59 18:59 Intake Total 240 Output Total 575 Balance -335 - Medications Medications: Current Medications Aripiprazole (Abilify) 5 mg PO DAILY [facility] Last Admin: 03/08/18 14:24 Dose: 5 mg Atorvastatin Calcium (Lipitor) 10 mg PO DAILY [facility] Last Admin: 03/08/18 14:25 Dose: 10 mg Benztropine Mesylate (Cogentin) 0.5 mg PO Q12 [facility] Last Admin: 03/08/18 21:22 Dose: 0.5 mg Divalproex Sodium (Depakote Er(Once Daily)) 500 mg PO DAILY [facility] PRN Reason: Protocol Last Admin: 03/08/18 14:25 Dose: 500 mg Fenofibrate (Tricor) 145 mg PO DAILY [facility] Last Admin: 03/08/18 14:25 Dose: 145 mg Hydroxyzine Pamoate (Vistaril) 50 mg PO PRN PRN; Protocol PRN Reason: Anxiety Cefazolin Sodium (Ancef 1gm In Ns) 1 gm in 100 mls @ 100 mls/hr IVPB Q8 [facility] PRN Reason: Protocol Last Admin: 03/09/18 05:30 Dose: 100 mls/hr - Labs Labs: 03/09/18 06:15 03/09/18 06:15 PT 14.7 SECONDS (9.4-12.5) H 03/07/18 22:25 INR 1.28 (0.93-1.08) H 03/07/18 22:25 - Constitutional Appears: Chronically Ill - Head Exam Head Exam: NORMAL INSPECTION - ENT Exam ENT Exam: Mucous Membranes Moist - Neck Exam Neck Exam: absent: Meningismus - Respiratory Exam Respiratory Exam: Decreased Breath Sounds - Cardiovascular Exam Cardiovascular Exam: +S1, +S2 - GI/Abdominal Exam GI & Abdominal Exam: Soft. absent: Tenderness - Extremities Exam Additional comments: decreased erythema and swelling of the left leg Assessment and Plan - Assessment and Plan (Free Text) Plan: Assessment left leg cellulitis, clinically improving history of mild proctitis probably related to fecal impaction HTN bipolar disorder history of left hand cellulitis Plan on Cefazolin day 2; blood cx are negative; when ready for discharge, the patient can be switched to PO Keflex for 7-10 days with outpatient follow up with PMD duplex U/S did not show DVT
--- NOTE | 2018-03-10 02:58 | PN ---
DATE: 03/09/2018 SUBJECTIVE: The patient is a 42-year-old male. The patient is seen and examined at the bedside, looking comfortable. No nausea, vomiting or diarrhea. No hematuria or hematochezia. No headache. No dizziness. No fever. No chills. Still has swelling of the right leg. It is red and firm, but getting better. PHYSICAL EXAMINATION: VITAL SIGNS: Temperature 99, pulse 79, respiratory rate 18, blood pressure 120/80, pulse oximetry 95. HEENT: Head normocephalic, atraumatic. Eyes: PERRLA. Extraocular muscles are intact. Conjunctivae clear. Nose patent. NECK: Supple. No carotid bruit. No JVD or thyromegaly. CHEST: Bilaterally symmetrical. HEART: S1 and S2 positive. LUNGS: Clear to auscultation. ABDOMEN: Soft. Bowel sounds positive. No organomegaly. EXTREMITIES: No edema, no cyanosis. NEUROLOGICAL: Patient is awake and alert. Follow simple commands. MEDICATIONS: Abilify, Lipitor, Cogentin, Depakote, Tricor, Vistaril LABORATORY DATA: White blood cell is 6.6, hemoglobin 12.2, hematocrit 36.5, platelets 226. Sodium 144, potassium 3.9, BUN 12, creatinine 1, glucose 109. ASSESSMENT AND PLAN: Mr. Marcelo Huynh is a 42-year-old male with anemia, hypercholesterolemia, came with cellulitis of the left leg, clinically improving, history of mild proctitis probably related to fecal impaction, hypertension, bipolar, history of left hand cellulitis on Cefazolin day 2, blood cultures are negative. Duplex ultrasound did not show deep venous thrombosis. The patient has history of schizophrenia, bipolar. Gastric and deep venous thrombosis prophylaxis. Repeat labs. We will follow up. Cinthia Gregory MD [facility]
[2018-03-10] MEDS: ceFAZolin 1 gm in NS 1 GM/100 ML BAG IVPB SCH (05:43)
[2018-03-10 06:25] LABS: HEMOGLOBIN 12.2 g/dL (14.0-18.0); MEAN CELL VOLUME 92.9 fl (80.0-105.0); MEAN CORPUSCULAR HGB CONC 33.4 g/dl (31.0-37.0); MEAN PLATELET VOLUME 11.3 fl (7.0-11.0); RBC 3.93 10^6/uL (3.5-6.1); WHITE BLOOD COUNT 7.2 10^3/ul (4.5-11.0)
[2018-03-10 07:29] LABS: ALB/GLOB RATIO 1.2 (1.1-1.8); ALT/SGPT 38 U/L (7-56); AST/SGOT 30 U/L (17-59); BLOOD UREA NITROGEN 15 mg/dL (7-21); CALCIUM 9.2 mg/dL (8.4-10.5); GFR AFRICAN-AMERICAN > 60; GFR NON-AFRICAN AMERICAN > 60
[2018-03-10 08:19] VITALS: BP 119/77; PULSE 76; TEMP 97.4
[2018-03-10] MEDS: Divalproex 500 mg ER (ONCE DAILY formulation) PO SCH (09:34)
[2018-03-10] MEDS ORDERED: Iron Sucrose 100 mg/5 ml Inj IVP SCH (10:00)
--- NOTE | 2018-03-10 20:26 | PN ---
DATE: 03/10/2018 SUBJECTIVE: Patient is seen, in no acute distress, nontoxic. No fevers. PHYSICAL EXAMINATION: VITAL SIGNS: Temperature is 98, blood pressure is 120/70, respiratory rate of 16. HEENT: Unremarkable. NECK: Supple. LUNGS: Have decreased breath sounds. HEART: Normal S1, S2. ABDOMEN: Soft, nontender. EXTREMITIES: Examination of the leg is much improved and erythema is much better. LABORATORY EXAMINATION: Reveals the white count of 7.2, hemoglobin of 12, platelets of 266. BUN of 15, creatinine of 1. Microbiology reveals the blood cultures are negative. ASSESSMENT AND PLAN: A 42-year-old male with left leg cellulitis; it is greatly improved today, may be able to go home on p.o. Keflex. I have discussed with nurse practitioner. Rao Bennett MD
== END 2018-03-10 14:47 | disposition home or self-care (01) | DRG 603 ==
LOC: ED 21:35 → ERH 03-08 00:21 → 3RNO 03-08 01:39
PROVIDERS: ADMIT Internal Medicine; ATTEND Internal Medicine
DX: L03.116 Cellulitis of left lower limb (principal); D64.9 Anemia, unspecified; E78.00 Pure hypercholesterolemia, unspecified; E78.1 Pure hyperglyceridemia; E87.6 Hypokalemia; F20.9 Schizophrenia, unspecified; F31.9 Bipolar disorder, unspecified; I10 Essential (primary) hypertension; R62.50 Unspecified lack of expected normal physiological development in childhood

== ENCOUNTER 2018-05-05 14:24 | Emergency (ER) | payer MEDICARE, MEDICAID ==
[2018-05-05 14:24] VITALS: BMI 32.8
--- NOTE | 2018-05-05 15:39 | ED PDOC ---
Arrival/HPI - General Chief Complaint: Lower Extremity Problem/Injury Time Seen by Provider: 05/05/18 15:29 Historian: Patient - History of Present Illness Narrative History of Present Illness (Text): 05/05/18 15:36 42 year old male, whose past medical history includes hypertension, bipolar, and developmental delay, presents to the emergency department from a nursing home and accompanied by caregiver complaining of right foot pain since yesterday. Denies trauma, or skin rash. Time/Duration: Other (see hpi) Context: Other (nursing home) Past Medical History - Provider Review Nursing Documentation Reviewed: Yes - Past History Past History: Non-Contributing - Infectious Disease Hx of Infectious Diseases: None - Tetanus Immunization Tetanus Immunization: Unknown - Cardiac Hx Cardiac Disorders: Yes Hx Hypertension: Yes - Pulmonary Hx Respiratory Disorders: No - Neurological Hx Neurological Disorder: No - HEENT Hx HEENT Disorder: No - Renal Hx Renal Disorder: No - Endocrine/Metabolic Hx Endocrine Disorders: No - Hematological/Oncological Hx Blood Disorders: No - Integumentary Hx Dermatological Disorder: Yes Other/Comment: DRY ITCHY SCALP - Musculoskeletal/Rheumatological Hx Musculoskeletal Disorders: No - Gastrointestinal Hx Gastrointestinal Disorders: No - Genitourinary/Gynecological Hx Genitourinary Disorders: No - Psychiatric Hx Psychophysiologic Disorder: Yes Hx Bipolar Disorder: Yes Hx Physical Abuse: No Hx Substance Use: No - Past Surgical History Past Surgical History: No Previous - Anesthesia Hx Anesthesia: No Hx Anesthesia Reactions: No Hx Malignant Hyperthermia: No - Suicidal Assessment Feels Threatened In Home Enviroment: No Family/Social History - Physician Review Nursing Documentation Reviewed: Yes Family/Social History: Other (noncontributory) Smoking Status: Never Smoked Hx Alcohol Use: Yes Hx Substance Use: No Hx Substance Use Treatment: No Allergies/Home Meds Allergies/Adverse Reactions: Allergies No Known Allergies Allergy (Verified 05/05/18 14:41) Home Medications: Home Meds Medication Instructions Recorded Confirmed ARIPiprazole [Abilify] 5 mg PO DAILY 03/08/18 05/05/18 Benztropine [Cogentin] 0.5 mg PO Q12 03/08/18 05/05/18 Divalproex [Depakote ER] 500 mg PO DAILY 03/08/18 05/05/18 Fenofibrate [Triglide] 160 mg PO DAILY 03/08/18 05/05/18 Simvastatin [Zocor] 10 mg PO DAILY 03/08/18 05/05/18 Vitamin D2 1.25 mg PO QD7 03/08/18 05/05/18 Ketoconazole [Nizoral] 1 apful TOP Q7D 05/05/18 05/05/18 Review of Systems - Review of Systems Constitutional: Normal. absent: Fatigue, Weight Change, Fevers, Night Sweats Eyes: Normal ENT: Normal Respiratory: Normal Cardiovascular: Normal Gastrointestinal: Normal Genitourinary Male: Normal Musculoskeletal: Other (right foot pain) Skin: Normal Neurological: Normal Endocrine: Normal Hemo/Lymphatic: Normal Psychiatric: Normal. absent: Anxiety, Depression, Suicidal Ideation Physical Exam Vital Signs Temp Pulse Resp BP Pulse Ox 05/05/18 14:48 98.8 F 81 16 131/83 95 Temperature: Afebrile Blood Pressure: Normal Pulse: Regular Respiratory Rate: Normal Appearance: Positive for: Well-Appearing, Non-Toxic, Comfortable Pain Distress: None Mental Status: Positive for: other - Systems Exam Head: Present: Atraumatic, Normocephalic Pupils: Present: PERRL Extroacular Muscles: Present: EOMI Conjunctiva: Present: Normal Mouth: Present: Moist Mucous Membranes Neck: Present: Normal Range of Motion Respiratory/Chest: Present: Clear to Auscultation, Good Air Exchange. No: Respiratory Distress, Accessory Muscle Use Cardiovascular: Present: Regular Rate and Rhythm, Normal S1, S2. No: Murmurs Abdomen: No: Tenderness, Distention, Peritoneal Signs Back: Present: Normal Inspection Upper Extremity: Present: Normal Inspection, Normal ROM, NORMAL PULSES, Neurovascularly Intact, Capillary Refill < 2s. No: Cyanosis, Edema Lower Extremity: Present: Normal Inspection, Edema (mild anterior lower leg edema, b/l. right is greater then left.), NORMAL PULSES, Normal ROM, Neurovascularly Intact, Capillary Refill < 2 s. No: Tenderness, Swelling, Erythema, Deformity, Temperature Abnormalties Neurological: Present: GCS=15, CN II-XII Intact, Speech Normal, Motor Func Grossly Intact, Normal Sensory Function, Normal Cerebellar Funct, Gait Normal, Memory Normal Skin: Present: Warm, Dry, Normal Color. No: Rashes Psychiatric: Present: Alert, Oriented x 3, Normal Insight, Normal Concentration Medical Decision Making ED Course and Treatment: 05/05/18 17:33 Re-evaluation. Patient feels better. Discussed results and plan with patient who expresses understanding. All questions answered and there is agreement with the plan to discharge home with instructions. Patient stable for discharge. Return if symptoms persist or worsen. Patient was recommended to f/u PMD in 1-2 days for revaluation. Venous Doppler is negative. Foot x-rays shows no fx. normal soft tissue. Labs are unremarkable. Pain has improved. Patient denies recent trauma. Patient has trace b/l lower leg edema, most likely chronic leg edema. Patient denies sob, or cp. No evidence of erythema/cellulitis or skin lesion on lower extremity. I recommended patient and movable bulkhead installer to have patient revaluated in 1-2 days by his doctor. Re-evaluation Time: 17:37 Reassessment Condition: Re-examined, Improved - Lab Interpretations Lab Results: 05/05/18 16:45 05/05/18 16:45 Lab Results 05/05/18 16:45: Sodium 143, Potassium 4.3, Chloride 105, Carbon Dioxide 25, Anion Gap 17, BUN 15, Creatinine 0.9, Est GFR ( Amer) > 60, Est GFR (Non- Af Amer) > 60, Random Glucose 114 H, Calcium 9.0, Total Bilirubin 0.4, AST 31, ALT 60 H, Alkaline Phosphatase 40, NT-Pro-B Natriuret Pep 14, Total Protein 7.4 , Albumin 4.2, Globulin 3.2, Albumin/Globulin Ratio 1.3 05/05/18 16:45: WBC 5.7 D, RBC 4.04, Hgb 12.8 L, Hct 37.6 L, MCV 93.1, MCH 31.7 , MCHC 34.0, RDW 13.0, Plt Count 269, MPV 10.7, Gran % 48.8 L, Lymph % (Auto) 38.8 H, [place] % (Auto) 9.6 H, Eos % (Auto) 2.3, Baso % (Auto) 0.5, Gran # 2.78, Lymph # (Auto) 2.2, [place] # (Auto) 0.6, Eos # (Auto) 0.1, Baso # (Auto) 0.03 I have reviewed the lab results: Yes Interpretation: No clinic. lab abnormalty - RAD Interpretation Narrative RAD Interpretations (Text): 05/05/18 17:37 Right Lower Extremity Venous Doppler was negative for DVT as per radiology Foot x-rays: No Fx. Normal soft tissue Radiology Orders: 05/05/18 15:47 DUPLEX LOWER EXTRM VEIN RIGHT [US] Stat 05/05/18 15:48 FOOT RIGHT 3 VIEWS ROUTINE [RAD] Stat - Medication Orders Current Medication Orders: Ibuprofen (Motrin Tab) 600 mg PO STAT STA Stop: 05/05/18 17:43 Disposition/Present on Arrival - Present on Arrival Any Indicators Present on Arrival: No History of DVT/PE: No History of Uncontrolled Diabetes: No Urinary Catheter: No History of Decub. Ulcer: No History Surgical Site Infection Following: None - Disposition Have Diagnosis and Disposition been Completed?: Yes Diagnosis: Foot pain, right, Bilateral leg edema Disposition: HOME/ ROUTINE Disposition Time: 17:39 Patient Plan: Discharge Patient Problems: Current Active Problems Problem Status Onset Foot pain, right Acute Bilateral leg edema Acute Condition: GOOD Discharge Instructions (ExitCare): Dependent Edema (DC) Additional Instructions: Call private doctor for follow up visit in 1-2 days. Take medication with food. Return to emergency if symptom worsen, fever, skin rash, shortness of breath, or chest pain. Ask your doctor about wearing compression stocking. ask your doctor to refer you to see vascular specialist Prescriptions: Famotidine [Pepcid] 40 mg PO DAILY #10 tablet Ibuprofen [Motrin] 400 mg PO Q8H PRN #20 tab PRN Reason: Pain, Severe (8-10) Referrals: Cinthia Gregory MD [Staff Provider] - Follow up with primary Forms: [employer] ([place])
[2018-05-05 17:01] LABS: ALB/GLOB RATIO 1.3 (1.1-1.8); ALBUMIN 4.2 g/dL (3.0-4.8); ALT/SGPT 60 U/L (7-56); AST/SGOT 31 U/L (17-59); BLOOD UREA NITROGEN 15 mg/dL (7-21); GFR AFRICAN-AMERICAN > 60; GFR NON-AFRICAN AMERICAN > 60
[2018-05-05 17:06] LABS: BASO # 0.03 K/mm3 (0.0-2.0); BASO % 0.5 % (0.0-3.0); EOS # 0.1 (0.0-0.7); EOS % 2.3 % (1.5-5.0); GRAN # 2.78 (1.4-6.5); GRAN % 48.8 % (50.0-68.0); HEMOGLOBIN 12.8 g/dL (14.0-18.0); LYMPH # 2.2 (1.2-3.4); LYMPH % 38.8 % (22.0-35.0); MEAN CELL VOLUME 93.1 fl (80.0-105.0); MEAN CORPUSCULAR HEMOGLOBIN 31.7 pg (25.0-35.0); MEAN PLATELET VOLUME 10.7 fl (7.0-11.0); MONO # 0.6 (0.1-0.6); MONO % 9.6 % (1.0-6.0); RBC 4.04 10^6/uL (3.5-6.1); WHITE BLOOD COUNT 5.7 10^3/ul (4.5-11.0)
[2018-05-05 17:25] LABS: B-TYPE NATRIURETIC PEPTIDE 14 pg/mL (0-450)
--- NOTE | 2018-05-05 17:43 | RAD ---
PROCEDURE: Right Foot Radiographs. HISTORY: Pain COMPARISON: None. FINDINGS: BONES: Bone alignment and mineralization are normal. There is no acute displaced fracture or bone destruction. JOINTS: Normal. SOFT TISSUES: Normal. OTHER FINDINGS: None. IMPRESSION: No acute fracture or dislocation.
[2018-05-05 18:28] VITALS: BP 128/78; PULSE 78
[2018-05-05 18:36] VITALS: RESP 16; TEMP 98.1; O2SAT 99
--- NOTE | 2018-05-05 19:21 | US ---
PROCEDURE: Right lower extremity venous US HISTORY: Leg pain and swelling. Evaluate for DVT. PHYSICIAN(S): Minesh Rowell M.D. TECHNIQUE: Duplex sonography and color-flow Doppler with graded compression were used to evaluate the deep venous system of the right lower extremity. FINDINGS: The visualized deep venous system of the right lower extremity is sonographically normal and compressible. Normal waveforms and augmentation are seen. There is no sonographic evidence for deep venous thrombosis in the visualized segments of the right lower extremity. IMPRESSION: 1. No sonographic evidence for deep venous thrombosis in the visualized segments of the right lower extremity.
== END 2018-05-05 18:35 | disposition home or self-care (01) ==
LOC: ED 14:24
DX: M79.671 Pain in right foot (principal); R60.0 Localized edema; I10 Essential (primary) hypertension

== ENCOUNTER 2018-06-05 21:47 | Emergency (ER) | payer MEDICARE, MEDICAID ==
[2018-06-05 21:56] VITALS: BMI 38.6
--- NOTE | 2018-06-05 22:01 | ED PDOC ---
Arrival/HPI - General Time Seen by Provider: 06/05/18 21:51 Historian: Patient - History of Present Illness Narrative History of Present Illness (Text): 06/05/18 22:01 Marcelo Huynh is a 42 year old male, whose past medical history includes hypertension, bipolar disorder, and developmental delay, who presents to the Emergency department from intermediate complaining of onset of discomfort to left groin area. Patient denies any history of trauma, states pain is localized to left lower area above testicle. Patient denies any specific testicular pain, difficulty urinating, dysuria, nausea, vomiting, fever, chills, or any other complaints. Symptom Onset: Gradual Symptom Course: Unchanged Activities at Onset: Light Context: Home Past Medical History - Provider Review Nursing Documentation Reviewed: Yes - Past History Past History: Non-Contributing - Infectious Disease Hx of Infectious Diseases: None - Tetanus Immunization Tetanus Immunization: Unknown - Cardiac Hx Cardiac Disorders: Yes Hx Hypertension: Yes - Pulmonary Hx Respiratory Disorders: No - Neurological Hx Neurological Disorder: No - HEENT Hx HEENT Disorder: No - Renal Hx Renal Disorder: No - Endocrine/Metabolic Hx Endocrine Disorders: No - Hematological/Oncological Hx Blood Disorders: No - Integumentary Hx Dermatological Disorder: Yes Other/Comment: DRY ITCHY SCALP - Musculoskeletal/Rheumatological Hx Musculoskeletal Disorders: No - Gastrointestinal Hx Gastrointestinal Disorders: No - Genitourinary/Gynecological Hx Genitourinary Disorders: No - Psychiatric Hx Psychophysiologic Disorder: Yes Hx Bipolar Disorder: Yes Hx Physical Abuse: No Hx Substance Use: No - Past Surgical History Past Surgical History: No Previous - Anesthesia Hx Anesthesia: No Hx Anesthesia Reactions: No Hx Malignant Hyperthermia: No - Suicidal Assessment Feels Threatened In Home Enviroment: No Family/Social History - Physician Review Nursing Documentation Reviewed: Yes Family/Social History: Unknown Family HX Smoking Status: Never Smoked Hx Alcohol Use: Yes Hx Substance Use: No Hx Substance Use Treatment: No Allergies/Home Meds Allergies/Adverse Reactions: Allergies No Known Allergies Allergy (Verified 06/05/18 22:02) Home Medications: Home Meds Medication Instructions Recorded Confirmed ARIPiprazole [Abilify] 5 mg PO DAILY 03/08/18 06/05/18 Benztropine [Cogentin] 0.5 mg PO Q12 03/08/18 06/05/18 Divalproex [Depakote ER] 500 mg PO DAILY 03/08/18 06/05/18 Fenofibrate [Triglide] 160 mg PO DAILY 03/08/18 06/05/18 Simvastatin [Zocor] 10 mg PO DAILY 03/08/18 06/05/18 Vitamin D2 1.25 mg PO QD7 03/08/18 06/05/18 Ketoconazole [Nizoral] 1 apful TOP Q7D 05/05/18 06/05/18 Review of Systems - Physician Review All systems were reviewed & negative as marked: Yes - Review of Systems Constitutional: Normal. absent: Fevers Eyes: Normal ENT: Normal Respiratory: Normal. absent: SOB, Cough Cardiovascular: Normal. absent: Chest Pain Gastrointestinal: Normal. absent: Abdominal Pain, Diarrhea, Nausea, Vomiting Genitourinary Male: Other (+left groin pain). absent: Frequency Musculoskeletal: Normal. absent: Back Pain, Neck Pain Skin: Normal. absent: Rash Neurological: Normal. absent: Headache, Dizziness Endocrine: Normal Hemo/Lymphatic: Normal Psychiatric: Normal Physical Exam Vital Signs Reviewed: Yes Vital Signs Temp Pulse Resp BP Pulse Ox 06/05/18 21:57 98.4 F 91 H 18 147/82 96 Temperature: Afebrile Blood Pressure: Normal Pulse: Regular Respiratory Rate: Normal Appearance: Positive for: Well-Appearing, Non-Toxic, Comfortable Pain Distress: None Mental Status: Positive for: Alert and Oriented X 3 - Systems Exam Head: Present: Atraumatic, Normocephalic Pupils: Present: PERRL Extroacular Muscles: Present: EOMI Conjunctiva: Present: Normal Ears: Present: Normal, NORMAL TM, Normal Canal. No: Erythema, TM Bulging, Fluid , TM Perf Mouth: Present: Moist Mucous Membranes Pharnyx: Present: Normal. No: ERYTHEMA, EXUDATE, TONSILS ENLARGED, Peritonsilar Swelling, Uvular Deviation, Muffled/Hoarse Voice, Strider, Soft Palate/Uvular Edema Nose (External): Present: Atraumatic Nose (Internal): Present: Normal Inspection Neck: Present: Normal Range of Motion. No: Meningeal Signs, MIDLINE TENDERNESS , Paraspinal Tenderness Respiratory/Chest: Present: Clear to Auscultation, Good Air Exchange. No: Respiratory Distress, Accessory Muscle Use Cardiovascular: Present: Regular Rate and Rhythm, Normal S1, S2. No: Murmurs Abdomen: Present: Normal Bowel Sounds. No: Tenderness, Distention, Peritoneal Signs Genitourinary Male: Present: Normal External Genitalia, Other (No inguinal adenopathy, some discomfort to left inguinal area, testes are descended bilaterally). No: Testicle Tenderness (No palpable testicular swelling), Masses , Hernias, Testicle Swelling Back: Present: Normal Inspection. No: CVA Tenderness, Midline Tenderness, Paraspinal Tenderness Upper Extremity: Present: Normal Inspection. No: Cyanosis, Edema Lower Extremity: Present: Normal Inspection. No: Edema Neurological: Present: GCS=15, CN II-XII Intact, Speech Normal, Motor Func Grossly Intact, Normal Sensory Function, Normal Cerebellar Funct Skin: Present: Warm, Dry, Normal Color. No: Rashes Lymphatic: No: Inguinal Adenopathy Psychiatric: Present: Alert, Oriented x 3, Normal Insight, Normal Concentration Medical Decision Making ED Course and Treatment: 06/05/18 22:01 Impression: 42 year old male complaining of left-sided groin pain. Plan: -- US Testes Duplex -- Labs -- UA -- Reassess and disposition Prior Visits: Notes and results from previous visits were reviewed. Progress Notes: 06/05/18 23:44 US Testes reviewed, shows: Right testicle: Unremarkable. No mass. No torsion. Left testicle: Unremarkable. No mass. No torsion. Epididymides: Unremarkable. Scrotum: Mild bilateral varicocele. Small bilateral hydrocele. IMPRESSION: 1. No evidence of torsion. 2. Mild bilateral varicocele. Small bilateral hydrocele. 06/06/18 00:10 On re-evaluation, patient feels better and is in no acute distress. I have discussed the results and plan with the patient, who expresses understanding. Patient in agreement with plan to be discharged home. Patient is stable for discharge. Patient was instructed to follow up with physician or return if symptoms worsen or new concerning symptoms arise. - Lab Interpretations Lab Results: 06/05/18 22:15 06/05/18 22:15 Lab Results 06/05/18 22:15: Urine Color Yellow, Urine Appearance Clear, Urine pH 6.0, Ur Specific [place] 1.025, Urine Protein Negative, Urine Glucose (UA) Negative, Urine Ketones Negative, Urine Blood Negative, Urine Nitrate Negative, Urine Bilirubin Negative, Urine Urobilinogen 0.2, Ur Leukocyte Esterase Negative 06/05/18 22:15: Sodium 144, Potassium 3.9, Chloride 106, Carbon Dioxide 23, Anion Gap 19, BUN 14, Creatinine 0.8, Est GFR ( Amer) > 60, Est GFR (Non- Af Amer) > 60, Random Glucose 108, Calcium 9.0 06/05/18 22:15: WBC 5.8, RBC 3.96, Hgb 12.6 L, Hct 36.4 L, MCV 91.9, MCH 31.8, MCHC 34.6, RDW 13.0, Plt Count 283, MPV 11.0 I have reviewed the lab results: Yes - RAD Interpretation Radiology Orders: 06/05/18 22:06 TESTES DUPLEX COMPLETE [US] Stat Balance Recesser: Radiologist - Medication Orders Current Medication Orders: Discontinued Medications Ibuprofen (Motrin Tab) 600 mg PO STAT STA Stop: 06/06/18 00:14 Last Admin: 06/06/18 00:22 Dose: 600 mg - Scribe Statement The provider has reviewed the documentation as recorded by the [place] Smith Provider Scribe Attestation: All medical record entries made by the [place] were at my direction and personally dictated by me. I have reviewed the chart and agree that the record accurately reflects my personal performance of the history, physical exam, medical decision making, and the department course for this patient. I have also personally directed, reviewed, and agree with the discharge instructions and disposition. Disposition/Present on Arrival - Present on Arrival Any Indicators Present on Arrival: No History of DVT/PE: No History of Uncontrolled Diabetes: No Urinary Catheter: No History Surgical Site Infection Following: None - Disposition Have Diagnosis and Disposition been Completed?: Yes Diagnosis: Inguinal muscle strain Disposition: HOME/ ROUTINE Disposition Time: 00:10 Patient Plan: Discharge Patient Problems: Current Active Problems Problem Status Onset Inguinal muscle strain Acute Condition: GOOD Discharge Instructions (ExitCare): Groin Strain (DC) Additional Instructions: Rest/no strenuous physical activity/medication as prescribed/follow up with your doctor Prescriptions: Ibuprofen [Motrin] 400 mg PO Q6 PRN #20 tab PRN Reason: Pain, Moderate (4-7)
[2018-06-05 22:02] VITALS: RESP 18; TEMP 98.4
[2018-06-05 22:35] LABS: URINE BILIRUBIN NEGATIVE (NEGATIVE); URINE BLOOD NEGATIVE (NEGATIVE); URINE GLUCOSE (UA) NEGATIVE (NEGATIVE); URINE LEUKOCYTE ESTERASE NEGATIVE Leu/uL (NEGATIVE); URINE PROTEIN NEGATIVE mg/dL (<30 mg/dL); URINE UROBILINOGEN 0.2 E.U./dL (<1 E.U./dL)
[2018-06-05 22:36] LABS: URINE APPEARANCE CLEAR (CLEAR); URINE COLOR YELLOW (YELLOW)
[2018-06-05 22:41] LABS: HEMOGLOBIN 12.6 g/dL (14.0-18.0); MEAN CELL VOLUME 91.9 fl (80.0-105.0); MEAN CORPUSCULAR HEMOGLOBIN 31.8 pg (25.0-35.0); MEAN CORPUSCULAR HGB CONC 34.6 g/dl (31.0-37.0); RBC 3.96 10^6/uL (3.5-6.1); WHITE BLOOD COUNT 5.8 10^3/ul (4.5-11.0)
[2018-06-05 22:42] LABS: GFR AFRICAN-AMERICAN > 60; GFR NON-AFRICAN AMERICAN > 60
[2018-06-05 22:55] LABS: BLOOD UREA NITROGEN 14 mg/dL (7-21)
[2018-06-06 00:34] VITALS: BP 124/82; PULSE 89; O2SAT 99
--- NOTE | 2018-06-06 15:55 | US ---
Date of service: 06/05/2018 HISTORY: pain TECHNIQUE: Realtime sonography through the scrotum with color and doppler flow. COMPARISON: None Available. FINDINGS: RIGHT TESTICLE: Measures 4.9 by 2.0 x 2.6 cm. Normal echotexture and flow. RIGHT EPIDIDYMIS: Epididymal head measures 1.5 x 1.0 x 1.4 cm. Grossly unremarkable appearance with normal flow. LEFT TESTICLE: Measures 5.0 x 1.8 x 3.1 cm. Normal echotexture and flow. LEFT EPIDIDYMIS: Epididymal head measures 1.2 x 0.8 x 1.5 cm. Grossly unremarkable appearance with normal flow. HYDROCELE: Bilateral VARICOCELE: Bilateral OTHER FINDINGS: The report concurs with the preliminary [facility] report IMPRESSION: Mild bilateral varicocele and bilateral hydroceles. No evidence of testicular torsion
== END 2018-06-06 00:33 | disposition home or self-care (01) ==
LOC: ED 21:47
DX: S39.011A Strain of muscle, fascia and tendon of abdomen, initial encounter (principal); X58.XXXA Exposure to other specified factors, initial encounter; Y92.9 Unspecified place or not applicable

== ENCOUNTER 2018-06-19 22:37 | Emergency (ER) | payer MEDICARE, MEDICAID ==
--- NOTE | 2018-06-19 23:09 | ED PDOC ---
Arrival/HPI - General Historian: Patient - History of Present Illness Time/Duration: Other (see hpi) Context: Home <Cullen Chapman - Last Filed: 06/19/18 23:54> <Tres Carcamo - Last Filed: 06/20/18 00:08> - General Time Seen by Provider: 06/19/18 22:45 - History of Present Illness Narrative History of Present Illness (Text): 06/19/18 23:09 Marcelo Huynh is a 42 year old male, whose past medical history includes hypertension, bipolar disorder, and developmental delay, who [facility] complaining of right great toe pain x [employer]. (Cullen Chapman) Past Medical History - Provider Review Nursing Documentation Reviewed: Yes - Past History Past History: Non-Contributing - Infectious Disease Hx of Infectious Diseases: None - Tetanus Immunization Tetanus Immunization: Unknown - Cardiac Hx Cardiac Disorders: Yes Hx Hypertension: Yes - Pulmonary Hx Respiratory Disorders: No - Neurological Hx Neurological Disorder: No - HEENT Hx HEENT Disorder: No - Renal Hx Renal Disorder: No - Endocrine/Metabolic Hx Endocrine Disorders: No - Hematological/Oncological Hx Blood Disorders: No - Integumentary Hx Dermatological Disorder: Yes Other/Comment: DRY ITCHY SCALP - Musculoskeletal/Rheumatological Hx Musculoskeletal Disorders: No - Gastrointestinal Hx Gastrointestinal Disorders: No - Genitourinary/Gynecological Hx Genitourinary Disorders: No - Psychiatric Hx Psychophysiologic Disorder: Yes Hx Bipolar Disorder: Yes Hx Physical Abuse: No Hx Substance Use: No - Past Surgical History Past Surgical History: No Previous - Anesthesia Hx Anesthesia: No Hx Anesthesia Reactions: No Hx Malignant Hyperthermia: No - Suicidal Assessment Feels Threatened In Home Enviroment: No <Cullen Chapman - Last Filed: 06/19/18 23:54> Family/Social History - Physician Review Nursing Documentation Reviewed: Yes Family/Social History: Other (noncontributory) Smoking Status: Never Smoked Hx Alcohol Use: Yes Hx Substance Use: No Hx Substance Use Treatment: No <Cullen Chapman - Last Filed: 06/19/18 23:54> Allergies/Home Meds <Cullen Chapman - Last Filed: 06/19/18 23:54> <Tres Carcamo - Last Filed: 06/20/18 00:08> Allergies/Adverse Reactions: Allergies No Known Allergies Allergy (Verified 06/19/18 23:15) Home Medications: Home Meds Medication Instructions Recorded Confirmed ARIPiprazole [Abilify] 5 mg PO DAILY 03/08/18 06/19/18 Benztropine [Cogentin] 0.5 mg PO Q12 03/08/18 06/19/18 Divalproex [Depakote ER] 500 mg PO DAILY 03/08/18 06/19/18 Fenofibrate [Triglide] 160 mg PO DAILY 03/08/18 06/19/18 Simvastatin [Zocor] 10 mg PO DAILY 03/08/18 06/19/18 Vitamin D2 1.25 mg PO QD7 03/08/18 06/19/18 Ketoconazole [Nizoral] 1 apful TOP Q7D 05/05/18 06/19/18 Review of Systems - Review of Systems Constitutional: Normal. absent: Fatigue, Weight Change, Fevers, Night Sweats Eyes: Normal ENT: Normal Respiratory: Normal Cardiovascular: Normal Gastrointestinal: Normal Genitourinary Male: Normal Musculoskeletal: Other (toe pain) Skin: Normal Neurological: Normal Endocrine: Normal Hemo/Lymphatic: Normal Psychiatric: Normal <Chapman,Nahim P - Last Filed: 06/19/18 23:54> Physical Exam Temperature: Afebrile Blood Pressure: Normal Pulse: Regular Respiratory Rate: Normal Appearance: Positive for: Well-Appearing, Non-Toxic, Comfortable Pain Distress: None Mental Status: Positive for: Alert and Oriented X 3 - Systems Exam Head: Present: Atraumatic, Normocephalic Mouth: Present: Moist Mucous Membranes Neck: Present: Normal Range of Motion Upper Extremity: Present: Normal Inspection, Normal ROM Lower Extremity: Present: NORMAL PULSES, Normal ROM, Tenderness ((+) right lateral great toenail tenderness. No abscess, or cellulitis), Neurovascularly Intact, Capillary Refill < 2 s. No: Edema, CALF TENDERNESS, Cyanosis, Nathan's Sign, Swelling, Erythema, Temperature Abnormalties Neurological: Present: GCS=15, CN II-XII Intact, Speech Normal, Motor Func Grossly Intact, Normal Sensory Function, Normal Cerebellar Funct, Gait Normal Skin: Present: Warm, Dry, Normal Color. No: Rashes Psychiatric: Present: Alert, Oriented x 3, Normal Insight, Normal Concentration <Chapman,Nahim P - Last Filed: 06/19/18 23:54> Vital Signs Temp Pulse Resp BP Pulse Ox 06/19/18 23:13 98.2 F 85 16 130/70 100 Medical Decision Making Re-evaluation Time: 23:38 Reassessment Condition: Re-examined, Improved <Cullen Chapman - Last Filed: 06/19/18 23:54> <Tres Carcamo - Last Filed: 06/20/18 00:08> ED Course and Treatment: 06/19/18 23:38 Re-evaluation. Patient feels better. Discussed results and plan with patient who expresses understanding. All questions answered and there is agreement with the plan to discharge home with instructions. Patient stable for discharge. Return if symptoms persist or worsen. Patient was recommended to do Epson salt warmth water 3-5 times a day for 5-7 days, and to take medication as instructed. 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 JEFF has examined the patient and agrees with the treatment plan. <Tres Carcamo - Last Filed: 06/20/18 00:08> Disposition/Present on Arrival - Present on Arrival Any Indicators Present on Arrival: No History of DVT/PE: No History of Uncontrolled Diabetes: No Urinary Catheter: No History Surgical Site Infection Following: None - Disposition Have Diagnosis and Disposition been Completed?: Yes Disposition Time: 23:42 Patient Plan: Discharge <Cullen Chapman - Last Filed: 06/19/18 23:54> <Tres Carcamo - Last Filed: 06/20/18 00:08> - Disposition Diagnosis: Ingrown toenail of right foot Disposition: HOME/ ROUTINE Patient Problems: Current Active Problems Problem Status Onset Ingrown toenail of right foot Acute Condition: GOOD Discharge Instructions (ExitCare): Ingrown Toenail (DC), How to Do a Sitz Bath Additional Instructions: Call private doctor for follow up visit in 1-2 days. Take medication as instructed. Return to emergency if symptoms worsen. You need to do Sitz Bath on affected foot 3-5 times daily for 10 minutes each and for 7 days. Call Metal Finish Inspector for revaluation. You need to wear wide shoes. Prescriptions: Ibuprofen [Motrin] 400 mg PO Q8H PRN #20 tab PRN Reason: Pain, Severe (8-10) Sulfamethoxazole/Trimethoprim [Bactrim DS 800 mg-160 mg] 1 tab PO BID #20 tab Referrals: James Cole MD [Primary Care Provider] - Follow up with primary Orlando Robertson DPM [Staff Provider] - Follow up with primary
[2018-06-19 23:11] VITALS: BMI 24.3
[2018-06-19 23:14] VITALS: RESP 16; TEMP 98.2
[2018-06-19] MEDS ORDERED: Tmp-Smz 800 mg-160 mg DS Tab PO STA (23:34)
[2018-06-20 00:34] VITALS: BP 128/76; PULSE 72; O2SAT 98
== END 2018-06-20 00:34 | disposition home or self-care (01) ==
LOC: ED 22:37
DX: L60.0 Ingrowing nail (principal)

== ENCOUNTER 2018-06-30 21:26 | Emergency (ER) | payer MEDICARE, MEDICAID ==
[2018-06-30 21:36] VITALS: RESP 18; TEMP 98; BMI 40.0
[2018-06-30] MEDS ORDERED: Sodium Chloride 0.9% 1,000 ML IV STA (21:40)
[2018-06-30 22:01] LABS: BASO # 0.06 K/mm3 (0.0-2.0); BASO % 0.8 % (0.0-3.0); EOS # 0.2 (0.0-0.7); EOS % 2.7 % (1.5-5.0); GRAN # 3.27 (1.4-6.5); GRAN % 45.9 % (50.0-68.0); HEMOGLOBIN 13.7 g/dL (14.0-18.0); LYMPH % 42.5 % (22.0-35.0); MEAN CELL VOLUME 91.7 fl (80.0-105.0); MEAN CORPUSCULAR HEMOGLOBIN 31.6 pg (25.0-35.0); MEAN CORPUSCULAR HGB CONC 34.4 g/dl (31.0-37.0); MEAN PLATELET VOLUME 10.4 fl (7.0-11.0); MONO # 0.6 (0.1-0.6); MONO % 8.1 % (1.0-6.0); RBC 4.34 10^6/uL (3.5-6.1); URINE BILIRUBIN NEGATIVE (NEGATIVE); URINE BLOOD NEGATIVE (NEGATIVE); URINE GLUCOSE (UA) NEGATIVE (NEGATIVE); URINE LEUKOCYTE ESTERASE NEGATIVE Leu/uL (NEGATIVE); URINE PROTEIN NEGATIVE mg/dL (<30 mg/dL); URINE UROBILINOGEN 0.2 E.U./dL (<1 E.U./dL); WHITE BLOOD COUNT 7.1 10^3/ul (4.5-11.0)
[2018-06-30 22:03] LABS: URINE APPEARANCE CLEAR (CLEAR); URINE COLOR YELLOW (YELLOW)
[2018-06-30 22:19] LABS: ALB/GLOB RATIO 1.3 (1.1-1.8); ALT/SGPT 56 U/L (7-56); AST/SGOT 50 U/L (17-59); BLOOD UREA NITROGEN 22 mg/dL (7-21); CALCIUM 9.8 mg/dL (8.4-10.5); GFR NON-AFRICAN AMERICAN > 60; LIPASE 356 U/L (23-300)
--- NOTE | 2018-06-30 23:20 | ED PDOC ---
Arrival/HPI - General Chief Complaint: Male Genitourinary Time Seen by Provider: 06/30/18 21:38 Historian: Patient - History of Present Illness Narrative History of Present Illness (Text): 06/30/18 23:17 A 42 year old male, with no significant past medical history, presents to the emergency department with a complaint of left sided testicular and pelvic pain. Patient states that he developed the discomfort earlier today while at a sitting position. He notes that he has not taken any medication for his pain. The patient denies fevers, chills, headache, dizziness, sore throat, cough, chest pain, shortness of breath, dyspnea on exertion, abdominal pain, nausea, vomiting, diarrhea, neck/back pain, urinary/bowel changes, penile discharge, unprotected sex, rash, or any other complaint. Time/Duration: Other (Today) Symptom Onset: Sudden Symptom Course: Unchanged Activities at Onset: Rest, Light Context: Home Past Medical History - Provider Review Nursing Documentation Reviewed: Yes - Past History Past History: Non-Contributing - Infectious Disease Hx of Infectious Diseases: None - Tetanus Immunization Tetanus Immunization: Unknown - Cardiac Hx Cardiac Disorders: Yes Hx Hypertension: Yes - Pulmonary Hx Respiratory Disorders: No - Neurological Hx Neurological Disorder: No - HEENT Hx HEENT Disorder: No - Renal Hx Renal Disorder: No - Endocrine/Metabolic Hx Endocrine Disorders: No - Hematological/Oncological Hx Blood Disorders: No - Integumentary Hx Dermatological Disorder: Yes Other/Comment: DRY ITCHY SCALP - Musculoskeletal/Rheumatological Hx Musculoskeletal Disorders: No - Gastrointestinal Hx Gastrointestinal Disorders: No - Genitourinary/Gynecological Hx Genitourinary Disorders: No - Psychiatric Hx Psychophysiologic Disorder: Yes Hx Bipolar Disorder: Yes Hx Physical Abuse: No Hx Substance Use: No - Past Surgical History Past Surgical History: No Previous - Anesthesia Hx Anesthesia: No Hx Anesthesia Reactions: No Hx Malignant Hyperthermia: No - Suicidal Assessment Feels Threatened In Home Enviroment: No Family/Social History - Physician Review Nursing Documentation Reviewed: Yes Family/Social History: No Known Family HX Smoking Status: Never Smoked Hx Alcohol Use: Yes Hx Substance Use: No Hx Substance Use Treatment: No Allergies/Home Meds Allergies/Adverse Reactions: Allergies No Known Allergies Allergy (Verified 06/19/18 23:15) Home Medications: Home Meds Medication Instructions Recorded Confirmed No Known Home Med 07/01/18 07/01/18 Review of Systems - Physician Review All systems were reviewed & negative as marked: Yes - Review of Systems Constitutional: absent: Fevers Respiratory: absent: SOB, Cough Cardiovascular: absent: Chest Pain, ARTEAGA Gastrointestinal: absent: Abdominal Pain, Stool Changes, Diarrhea, Nausea, Vomiting Genitourinary Male: Other (Left testicular and pelvic pain.). absent: Urinary Output Changes Musculoskeletal: absent: Back Pain, Neck Pain Skin: absent: Rash Neurological: absent: Headache, Dizziness Psychiatric: absent: Anxiety, Depression Physical Exam Vital Signs Reviewed: Yes Vital Signs Temp Pulse Resp BP Pulse Ox 07/01/18 01:30 88 18 135/72 98 06/30/18 21:31 98 F 95 H 18 155/98 H 96 Temperature: Afebrile Blood Pressure: Hypertensive Pulse: Tachycardic Respiratory Rate: Normal Appearance: Positive for: Well-Appearing, Non-Toxic, Comfortable Pain Distress: None Mental Status: Positive for: Alert and Oriented X 3 - Systems Exam Head: Present: Atraumatic, Normocephalic Conjunctiva: Present: Normal Mouth: Present: Moist Mucous Membranes Neck: Present: Normal Range of Motion Respiratory/Chest: Present: Clear to Auscultation, Good Air Exchange. No: Respiratory Distress, Accessory Muscle Use Cardiovascular: Present: Regular Rate and Rhythm, Normal S1, S2. No: Murmurs Abdomen: Present: Tenderness (minimal left lower pelvic/lower abdominal tenderness. ). No: Distention, Peritoneal Signs, Rebound, Guarding, McBurney's Point Tender Genitourinary Male: Present: Other (Slight tenderness to left lower pelvis. 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 No: Penile Discharge, Testicle Tenderness, Hernias, Testicle Swelling Back: Present: Normal Inspection Upper Extremity: Present: Normal Inspection. No: Cyanosis, Edema Lower Extremity: Present: Normal Inspection. No: Edema Neurological: Present: GCS=15, Speech Normal Skin: Present: Warm, Dry, Normal Color. No: Rashes Psychiatric: Present: Alert, Oriented x 3 Medical Decision Making ED Course and Treatment: 06/30/18 23:22 Impression: A 42 year old male presents to the emergency department with complaint of left sided testicular and pelvic pain. Plan: -- Abdomen/Pelvis CT -- Testicular Ultrasound -- Chlamydia/ GC -- Urinalysis -- Urine Culture -- IV Fluids -- Labs -- Reassess and disposition Prior Visits: Notes and results from previous visits were reviewed. Progress Notes: US Scrotum Dictated and Authenticated by: Byron Schaffer MD 06/30/2018 11:13 PM Eastern Time ([place] & [place]) IMPRESSION: 1. Negative for intrinsic testicular abnormality. 2. Negative examination of the bilateral epididymis 3. Bilateral hydrocele 4. Bilateral varicocele 06/30/18 23:31 case signed out to dr. lanza pending CT, re-evaluation and disposition - Lab Interpretations Microbiology Results: Microbiology Results 06/30/18 21:50 Urine Urine Culture - Final No Growth (<1,000 CFU/ML) Lab Results: 06/30/18 21:50 06/30/18 21:50 Lab Results 06/30/18 21:50: WBC 7.1 D, RBC 4.34, Hgb 13.7 L, Hct 39.8 L, MCV 91.7, MCH 31.6 , MCHC 34.4, RDW 13.0, Plt Count 315, MPV 10.4, Gran % 45.9 L, Lymph % (Auto) 42.5 H, [place] % (Auto) 8.1 H, Eos % (Auto) 2.7, Baso % (Auto) 0.8, Gran # 3.27, Lymph # (Auto) 3.0, [place] # (Auto) 0.6, Eos # (Auto) 0.2, Baso # (Auto) 0.06 06/30/18 21:50: Sodium 144, Potassium 4.3, Chloride 106, Carbon Dioxide 22, Anion Gap 21 H, BUN 22 H, Creatinine 1.2, Est GFR ( Amer) > 60, Est GFR ( Non-Af Amer) > 60, Random Glucose 111 H, Calcium 9.8, Total Bilirubin 0.4, AST 50, ALT 56, Alkaline Phosphatase 50, Total Protein 8.8 H, Albumin 5.0 H, Globulin 3.8, Albumin/Globulin Ratio 1.3, Lipase 356 H 06/30/18 21:50: Urine Color Yellow, Urine Appearance Clear, Urine pH 6.0, Ur Specific [place] 1.025, Urine Protein Negative, Urine Glucose (UA) Negative, Urine Ketones Negative, Urine Blood Negative, Urine Nitrate Negative, Urine Bilirubin Negative, Urine Urobilinogen 0.2, Ur Leukocyte Esterase Negative - RAD Interpretation Radiology Orders: 06/30/18 21:38 ABD & PELVIS IV CONTRAST ONLY [CT] Stat TESTES DUPLEX COMPLETE [US] Stat - Medication Orders Current Medication Orders: Discontinued Medications Sodium Chloride (Sodium Chloride 0.9%) 1,000 mls @ 999 mls/hr IV .Q1H1M STA Stop: 06/30/18 22:40 Last Admin: 06/30/18 21:52 Dose: 999 mls/hr eMAR Start Stop Document 06/30/18 21:52 CNR (Rec: 06/30/18 21:52 CNR [id number]) Intravenous Solution Start Date 06/30/18 Start Time 21:52 End Date 06/30/18 End time 22:52 Total Infusion Time 60 - Scribe Statement The provider has reviewed the documentation as recorded by the Scribe Sary Duenas Provider Scribe Attestation: All medical record entries made by the Scribe were at my direction and personally dictated by me. I have reviewed the chart and agree that the record accurately reflects my personal performance of the history, physical exam, medical decision making, and the department course for this patient. I have also personally directed, reviewed, and agree with the discharge instructions and disposition. Disposition/Present on Arrival - Present on Arrival Any Indicators Present on Arrival: No History of DVT/PE: No History of Uncontrolled Diabetes: No Urinary Catheter: No History of Decub. Ulcer: No History Surgical Site Infection Following: None - Disposition Have Diagnosis and Disposition been Completed?: Yes Diagnosis: Abdominal pain, Testicle pain Disposition: HOME/ ROUTINE Disposition Time: 01:30 Condition: GOOD Discharge Instructions (ExitCare): Groin Strain, Stomach Ache and Stomach Upset Additional Instructions: FRANNIE MORRIS, thank you for letting us take care of you today. Your provider was Ottoniel Lanza and you were treated for TESTICULAR PAIN. The emergency medical care you received today was directed at your acute symptoms. If you were prescribed any medication, please fill it and take as directed. It may take several days for your symptoms to resolve. Return to the Emergency Department if your symptoms worsen, do not improve, or if you have any other problems. Please contact your doctor or call one of the physicians/clinics you have been referred to that are listed on the Patient Visit Information form that is included in your discharge packet. Bring any paperwork you were given at discharge with you along with any medications you are taking to your follow up visit. Our treatment cannot replace ongoing medical care by a primary care provider outside of the emergency department. Thank you for allowing the [facility] team to be part of your care today. If you had an X-Ray or CT scan: A Radiologist will review the ED reading if any change in treatment is needed we will contact you. If you had a blood, urine, or wound culture: It will take several days for the results, if any change in treatment is needed we will contact you. If you had an STI test: It will take 48 hours for the results. Please call after 1 week if you have not heard back. Referrals: Sara Elias MD [Staff Provider] - Follow up with primary Annabella Garay MD [Medical Doctor] - Follow up with primary Forms: [employer] (Yoruba)
--- NOTE | 2018-07-01 00:32 | ED PDOC ---
Physical Exam Vital Signs Reviewed: Yes Vital Signs Temp Pulse Resp BP Pulse Ox 06/30/18 21:31 98 F 95 H 18 155/98 H 96 Temperature: Afebrile Blood Pressure: Hypertensive Pulse: Tachycardic Respiratory Rate: Normal Appearance: Positive for: Well-Appearing, Non-Toxic, Comfortable Pain Distress: None Mental Status: Positive for: Alert and Oriented X 3 Medical Decision Making ED Course and Treatment: 07/01/18 23:29: Patient endorsed to me by SAM Amin. Patient presents with left sided testicle pelvic pain. Pending Abdomen/Pelvis CT, reassessment, and disposition. CT Abdomen and Pelvis With Intravenous Contrast EXAM DATE/TIME: 06/30/2018 9:38 PM Dictated and Authenticated by: Gregorio Perez MD 07/01/2018 12:10 AM Eastern Time ([place] & [place]) IMPRESSION: No acute findings. 07/01/18 01:05 On reevaluation the patient is in no acute distress. I have discussed the results and plan with the patient, who expresses understanding. Patient given the opportunity to ask question, all questions were answered and there is agreement with the plan to discharge the patient home. Patient is stable for discharge. Patient was instructed to follow up with physician/clinic in 1-2 days or return if symptoms persist/worsen or new concerning symptoms arise. - Lab Interpretations Lab Results: 06/30/18 21:50 06/30/18 21:50 Lab Results 06/30/18 21:50: WBC 7.1 D, RBC 4.34, Hgb 13.7 L, Hct 39.8 L, MCV 91.7, MCH 31.6 , MCHC 34.4, RDW 13.0, Plt Count 315, MPV 10.4, Gran % 45.9 L, Lymph % (Auto) 42.5 H, [place] % (Auto) 8.1 H, Eos % (Auto) 2.7, Baso % (Auto) 0.8, Gran # 3.27, Lymph # (Auto) 3.0, [place] # (Auto) 0.6, Eos # (Auto) 0.2, Baso # (Auto) 0.06 06/30/18 21:50: Sodium 144, Potassium 4.3, Chloride 106, Carbon Dioxide 22, Anion Gap 21 H, BUN 22 H, Creatinine 1.2, Est GFR ( Amer) > 60, Est GFR ( Non-Af Amer) > 60, Random Glucose 111 H, Calcium 9.8, Total Bilirubin 0.4, AST 50, ALT 56, Alkaline Phosphatase 50, Total Protein 8.8 H, Albumin 5.0 H, Globulin 3.8, Albumin/Globulin Ratio 1.3, Lipase 356 H 06/30/18 21:50: Urine Color Yellow, Urine Appearance Clear, Urine pH 6.0, Ur Specific [place] 1.025, Urine Protein Negative, Urine Glucose (UA) Negative, Urine Ketones Negative, Urine Blood Negative, Urine Nitrate Negative, Urine Bilirubin Negative, Urine Urobilinogen 0.2, Ur Leukocyte Esterase Negative - RAD Interpretation Radiology Orders: 06/30/18 21:38 ABD & PELVIS IV CONTRAST ONLY [CT] Stat TESTES DUPLEX COMPLETE [US] Stat - Medication Orders Current Medication Orders: Discontinued Medications Sodium Chloride (Sodium Chloride 0.9%) 1,000 mls @ 999 mls/hr IV .Q1H1M STA Stop: 06/30/18 22:40 Last Admin: 06/30/18 21:52 Dose: 999 mls/hr eMAR Start Stop Document 06/30/18 21:52 CNR (Rec: 06/30/18 21:52 CNR [id number]) Intravenous Solution Start Date 06/30/18 Start Time 21:52 End Date 06/30/18 End time 22:52 Total Infusion Time 60 - Scribe Statement The provider has reviewed the documentation as recorded by the [place] Duenas Provider Scribe Attestation: All medical record entries made by the Scribe were at my direction and personally dictated by me. I have reviewed the chart and agree that the record accurately reflects my personal performance of the history, physical exam, medical decision making, and the department course for this patient. I have also personally directed, reviewed, and agree with the discharge instructions and disposition. Disposition/Present on Arrival - Present on Arrival Any Indicators Present on Arrival: No History of DVT/PE: No History of Uncontrolled Diabetes: No Urinary Catheter: No History of Decub. Ulcer: No History Surgical Site Infection Following: None - Disposition Have Diagnosis and Disposition been Completed?: Yes Diagnosis: Abdominal pain, Testicle pain Disposition: HOME/ ROUTINE Disposition Time: 00:10 Condition: GOOD Discharge Instructions (ExitCare): Groin Strain, Stomach Ache and Stomach Upset Additional Instructions: FRANNIE MORRIS, thank you for letting us take care of you today. Your provider was Ottoniel Dewitt and you were treated for TESTICULAR PAIN. The emergency medical care you received today was directed at your acute symptoms. If you were prescribed any medication, please fill it and take as directed. It may take several days for your symptoms to resolve. Return to the Emergency Department if your symptoms worsen, do not improve, or if you have any other problems. Please contact your doctor or call one of the physicians/clinics you have been referred to that are listed on the Patient Visit Information form that is included in your discharge packet. Bring any paperwork you were given at discharge with you along with any medications you are taking to your follow up visit. Our treatment cannot replace ongoing medical care by a primary care provider outside of the emergency department. Thank you for allowing the [facility] team to be part of your care today. If you had an X-Ray or CT scan: A Radiologist will review the ED reading if any change in treatment is needed we will contact you. If you had a blood, urine, or wound culture: It will take several days for the results, if any change in treatment is needed we will contact you. If you had an STI test: It will take 48 hours for the results. Please call after 1 week if you have not heard back. Referrals: Sara Elias MD [Staff Provider] - Follow up with primary Annabella Garay MD [Medical Doctor] - Follow up with primary Forms: [employer] (Portuguese)
[2018-07-01 01:31] VITALS: BP 135/72; PULSE 88; O2SAT 98
--- NOTE | 2018-07-01 10:37 | US ---
Date of service: 06/30/2018 HISTORY: left sided groin/testicular pain TECHNIQUE: Realtime sonography through the scrotum with color and doppler flow. COMPARISON: None Available. FINDINGS: RIGHT TESTICLE: Measures 4.4 x 2.5 x 3.1 cm. Normal echotexture and flow. RIGHT EPIDIDYMIS: Epididymal head measures 1.3 x 1.3 x 1.1 cm. Grossly unremarkable appearance with normal flow. LEFT TESTICLE: Measures 4.8 x 2.0 x 3.2 cm. Normal echotexture and flow. LEFT EPIDIDYMIS: Epididymal head measures 1.0 x 0.8 x 0.9 cm. Grossly unremarkable appearance with normal flow. HYDROCELE: Bilateral small hydroceles. VARICOCELE: Bilateral varicocele. OTHER FINDINGS: None. IMPRESSION: No evidence for testicular mass, torsion or epididymitis. Bilateral varicocele. A preliminary report was provided by [facility] services.
--- NOTE | 2018-07-01 10:43 | CT ---
Date of service: 06/30/2018 PROCEDURE: CT Abdomen and Pelvis with contrast HISTORY: left sided low abd/pelvic pain COMPARISON: 01/18/2018 TECHNIQUE: Contrast dose: 139 cc of Omni 350 Radiation dose: Total exam DLP = 1436 mGy-cm. This CT exam was performed using one or more of the following dose reduction techniques: Automated exposure control, adjustment of the mA and/or kV according to patient size, and/or use of iterative reconstruction technique. FINDINGS: LOWER THORAX: Unremarkable. LIVER: Unremarkable. No gross lesion or ductal dilatation. Fatty infiltration of the liver GALLBLADDER AND BILE DUCTS: Unremarkable. PANCREAS: Unremarkable. No gross lesion or ductal dilatation. SPLEEN: Unremarkable. ADRENALS: There is a 26 mm left adrenal lesion which measures 74 Hounsfield units in density. The findings are indeterminate. The lesion is unchanged in size KIDNEYS AND URETERS: Unremarkable. No hydronephrosis. No solid mass. VASCULATURE: Unremarkable. No aortic aneurysm. BOWEL: Unremarkable. No obstruction. No gross mural thickening. APPENDIX: Normal appendix. PERITONEUM: Unremarkable. No free fluid. No free air. LYMPH NODES: Unremarkable. No enlarged lymph nodes. BLADDER: Unremarkable. REPRODUCTIVE: Unremarkable. BONES: No acute fracture. OTHER FINDINGS: The report concurs with the preliminary [facility] report IMPRESSION: No acute intra-abdominal findings. Left adrenal lesion unchanged
== END 2018-07-01 01:30 | disposition home or self-care (01) ==
LOC: ED 21:26
DX: N50.812 Left testicular pain (principal); R10.2 Pelvic and perineal pain
CPT/HCPCS: 74177; 80053; 81003; 83690; 85025; 87086; 87491; 87591; 93975; 96360; 99283; J7030; Q9967

== ENCOUNTER 2018-08-27 16:28 | Emergency (ER) | payer MEDICARE, MEDICAID ==
[2018-08-27 16:28] VITALS: BMI 24.3
[2018-08-27 16:45] VITALS: RESP 18
[2018-08-27] MEDS ORDERED: Sodium Chloride 0.9% 1,000 ML IV STA (17:00)
--- NOTE | 2018-08-27 17:27 | ED PDOC ---
Arrival/HPI - General Chief Complaint: Abdominal Pain Time Seen by Provider: 08/27/18 16:48 Historian: Patient, Caregiver - History of Present Illness Narrative History of Present Illness (Text): 08/27/18 17:10 A 42 year old male, whose past medical history includes hypertension, bipolar disorder, and developmental delay, who is accompanied by culture media laboratory assistant, presents to the emergency department complaining of abdominal pain and diarrhea since this afternoon. Patient has had multiple episodes of diarrhea. His last meal was onions and potatoes. He denies any antibiotics taken during this time period and also that he has not taken any medication to aid with the diarrhea. Patient denies any vomiting, blood stool, dizziness, chest pain, shortness of breath , or any other complaints at this time. Also, patient's culture media laboratory assistant mentions patient recently had rectal bleeding and had a colonoscopy performed, and that they will be following up with PMD. PMD: Dr. Gregory Past Medical History - Provider Review Nursing Documentation Reviewed: Yes - Past History Past History: Non-Contributing - Infectious Disease Hx of Infectious Diseases: None - Tetanus Immunization Tetanus Immunization: Unknown - Cardiac Hx Cardiac Disorders: Yes Hx Hypertension: Yes - Pulmonary Hx Respiratory Disorders: No - Neurological Hx Neurological Disorder: No - HEENT Hx HEENT Disorder: No - Renal Hx Renal Disorder: No - Endocrine/Metabolic Hx Endocrine Disorders: No - Hematological/Oncological Hx Blood Disorders: No - Integumentary Hx Dermatological Disorder: Yes Other/Comment: DRY ITCHY SCALP - Musculoskeletal/Rheumatological Hx Musculoskeletal Disorders: No - Gastrointestinal Hx Gastrointestinal Disorders: No - Genitourinary/Gynecological Hx Genitourinary Disorders: No - Psychiatric Hx Psychophysiologic Disorder: Yes Hx Bipolar Disorder: Yes Hx Physical Abuse: No Hx Substance Use: No - Past Surgical History Past Surgical History: No Previous - Anesthesia Hx Anesthesia: No Hx Anesthesia Reactions: No Hx Malignant Hyperthermia: No - Suicidal Assessment Feels Threatened In Home Enviroment: No Family/Social History - Physician Review Nursing Documentation Reviewed: Yes Family/Social History: No Known Family HX Smoking Status: Never Smoked Hx Alcohol Use: Yes Hx Substance Use: No Hx Substance Use Treatment: No Allergies/Home Meds Allergies/Adverse Reactions: Allergies No Known Allergies Allergy (Verified 08/27/18 16:45) Home Medications: Home Meds Medication Instructions Recorded Confirmed No Known Home Med 07/01/18 08/27/18 Review of Systems - Physician Review All systems were reviewed & negative as marked: Yes - Review of Systems Respiratory: absent: SOB Cardiovascular: absent: Chest Pain Gastrointestinal: Abdominal Pain, Diarrhea. absent: Stool Changes (no bloody stool), Nausea, Vomiting Neurological: absent: Dizziness Physical Exam Vital Signs Reviewed: Yes Vital Signs Temp Pulse Resp BP Pulse Ox 08/27/18 16:40 98.7 F 97 H 18 148/93 H 99 Temperature: Afebrile Blood Pressure: Normal Pulse: Regular Respiratory Rate: Normal Appearance: Positive for: Well-Appearing, Non-Toxic, Comfortable Pain Distress: None Mental Status: Positive for: other (falt affect) - Systems Exam Head: Present: Atraumatic, Normocephalic Pupils: Present: PERRL Extroacular Muscles: Present: EOMI Conjunctiva: Present: Normal Mouth: Present: Moist Mucous Membranes Neck: Present: Normal Range of Motion Respiratory/Chest: Present: Clear to Auscultation, Good Air Exchange. No: Respiratory Distress, Accessory Muscle Use Cardiovascular: Present: Regular Rate and Rhythm, Normal S1, S2. No: Murmurs Abdomen: Present: Tenderness (slight tenderness to periumbilical region, no rerythema, no lesions, no palpable bulge) Back: Present: Normal Inspection Upper Extremity: Present: Normal Inspection. No: Cyanosis, Edema Lower Extremity: Present: Normal Inspection. No: Edema Neurological: Present: GCS=15, CN II-XII Intact, Speech Normal Skin: Present: Warm, Dry, Normal Color. No: Rashes Psychiatric: Present: Alert, Oriented x 3, Other (flat affect) Medical Decision Making ED Course and Treatment: 08/27/18 17:12 Impression: 42 year old male with abdominal pain and diarrhea. Plan: -- Chest X-Ray -- Labs -- Urinalysis -- Stool Culture -- Reassess and disposition Prior Visits: Notes and results from previous visits were reviewed. Patient was last seen here in the emergency department on 06/30/2018 for left-sided testicular pain and pelvic pain. Patient was discharged home. Progress Notes: 08/27/18 19:48 Patient produced fully formed stool noted to be green. Specimen sent to lab for culture. Labs reviewed and unremarkable. UA does not show leukocyte esterase or nitrites. CXR shows no evidence of free air underneath the diaphragm at this time. PO analgesics ordered. - Lab Interpretations I have reviewed the lab results: Yes - RAD Interpretation Narrative RAD Interpretations (Text): 08/27/2018 18:21 Chest X-Ray IMPRESSION: No active disease. No significant interval change compared to the prior examination(s). Dictator: Reuben Hicks MD Radiology Orders: 08/27/18 17:00 CHEST PORTABLE [RAD] Stat - Medication Orders Current Medication Orders: Sodium Chloride (Sodium Chloride 0.9%) 1,000 mls @ 999 mls/hr IV .Q1H1M STA Stop: 08/27/18 18:00 Discontinued Medications Metoclopramide HCl (Reglan) 10 mg IVP STAT STA Stop: 08/27/18 17:01 - Scribe Statement The provider has reviewed the documentation as recorded by the Michoacano Humphrey Provider Scribe Attestation: All medical record entries made by the Scribe were at my direction and personally dictated by me. I have reviewed the chart and agree that the record accurately reflects my personal performance of the history, physical exam, medical decision making, and the department course for this patient. I have also personally directed, reviewed, and agree with the discharge instructions and disposition. Disposition/Present on Arrival - Present on Arrival Any Indicators Present on Arrival: No History of DVT/PE: No History of Uncontrolled Diabetes: No Urinary Catheter: No History of Decub. Ulcer: No History Surgical Site Infection Following: None - Disposition Have Diagnosis and Disposition been Completed?: Yes Diagnosis: Gastroenteritis Disposition: HOME/ ROUTINE Disposition Time: 19:50 Patient Plan: Discharge Condition: STABLE Discharge Instructions (ExitCare): Gastroenteritis (ED) Referrals: Cinthia Gregory MD [Primary Care Provider] - Follow up with primary Forms: [facility] (Omani)
[2018-08-27 17:47] LABS: BASO # 0.02 K/mm3 (0.0-2.0); BASO % 0.3 % (0.0-3.0); EOS # 0.1 (0.0-0.7); EOS % 1.2 % (1.5-5.0); GRAN # 3.94 (1.4-6.5); GRAN % 58.6 % (50.0-68.0); HEMOGLOBIN 13.3 g/dL (14.0-18.0); LYMPH # 2.1 (1.2-3.4); LYMPH % 30.8 % (22.0-35.0); MEAN CELL VOLUME 93.5 fl (80.0-105.0); MEAN CORPUSCULAR HEMOGLOBIN 31.9 pg (25.0-35.0); MEAN CORPUSCULAR HGB CONC 34.1 g/dl (31.0-37.0); MEAN PLATELET VOLUME 10.5 fl (7.0-11.0); MONO # 0.6 (0.1-0.6); MONO % 9.1 % (1.0-6.0); RBC 4.17 10^6/uL (3.5-6.1); RED CELL DISTRIBUTION WIDTH 12.7 % (11.5-14.5); WHITE BLOOD COUNT 6.7 10^3/ul (4.5-11.0)
[2018-08-27 17:50] LABS: URINE BILIRUBIN NEGATIVE (NEGATIVE); URINE BLOOD NEGATIVE (NEGATIVE); URINE GLUCOSE (UA) NEGATIVE (NEGATIVE); URINE LEUKOCYTE ESTERASE NEGATIVE Leu/uL (NEGATIVE); URINE PROTEIN NEGATIVE mg/dL (<30 mg/dL); URINE UROBILINOGEN 0.2 E.U./dL (<1 E.U./dL)
[2018-08-27 17:51] LABS: URINE APPEARANCE CLEAR (CLEAR); URINE COLOR YELLOW (YELLOW)
[2018-08-27 18:24] LABS: ALB/GLOB RATIO 1.3 (1.1-1.8); ALBUMIN 4.5 g/dL (3.0-4.8); ALT/SGPT 57 U/L (7-56); AST/SGOT 33 U/L (17-59); BLOOD UREA NITROGEN 16 mg/dL (7-21); CALCIUM 9.1 mg/dL (8.4-10.5); GFR NON-AFRICAN AMERICAN > 60; LIPASE 142 U/L (23-300)
--- NOTE | 2018-08-27 18:24 | RAD ---
Date of service: 08/27/2018 HISTORY: Shortness of breath. COMPARISON: 05/03/2017. FINDINGS: LUNGS: No active pulmonary disease. PLEURA: No significant pleural effusion identified, no pneumothorax apparent. CARDIOVASCULAR: No atherosclerotic calcification present No radiographic findings to suggest acute or significant cardiovascular disease. OSSEOUS STRUCTURES: No significant abnormalities. VISUALIZED UPPER ABDOMEN: Normal. OTHER FINDINGS: None. IMPRESSION: No active disease. No significant interval change compared to the prior examination(s).
[2018-08-27] MEDS ORDERED: Atrop/Hyosc/Scopal/PB Elixir (120 ml) PO STA (19:10)
[2018-08-27] MEDS ORDERED: Alum-Mag Hydrox-Simethicone Susp (30 mL) PO STA (19:10)
[2018-08-27 20:09] VITALS: BP 141/81; PULSE 88; TEMP 98.1; O2SAT 98
== END 2018-08-27 20:11 | disposition home or self-care (01) ==
LOC: ED 16:28
DX: K52.9 Noninfective gastroenteritis and colitis, unspecified (principal); I10 Essential (primary) hypertension
CPT/HCPCS: 71045; 80053; 81003; 83690; 85025; 87045; 87324; 96361; 96374; 96375; 99285; J2765; J7030

== ENCOUNTER 2018-08-31 18:47 | Emergency (ER) | payer MEDICARE, MEDICAID ==
[2018-08-31 19:41] VITALS: BMI 42.0
[2018-08-31 20:04] VITALS: RESP 18; TEMP 99.1
--- NOTE | 2018-08-31 20:23 | ED PDOC ---
Arrival/HPI - General Chief Complaint: GI Problem Time Seen by Provider: 08/31/18 20:02 Historian: Patient - History of Present Illness Narrative History of Present Illness (Text): 08/31/18 20:00 Marcelo Huynh is a 42 year old male, whose past medical history includes hypertension, bipolar disorder, and developmental delay, who presents to the Emergency department from senior care complaining of intermittent rectal pain for the past 3 weeks. Patient reports associated rectal bleeding. Patient is scheduled to see his rn gastroenterology, but brought in for further evaluation. Patient denies any abdominal pain, nausea, vomiting, chest pain, shortness of breath, headache, dizziness, or any other complaints. Symptom Onset: Gradual Symptom Course: Unchanged Activities at Onset: Light Context: Home Past Medical History - Provider Review Nursing Documentation Reviewed: Yes - Past History Past History: Non-Contributing - Infectious Disease Hx of Infectious Diseases: None - Tetanus Immunization Tetanus Immunization: Unknown - Cardiac Hx Cardiac Disorders: Yes Hx Hypertension: Yes - Pulmonary Hx Respiratory Disorders: No - Neurological Hx Neurological Disorder: No - HEENT Hx HEENT Disorder: No - Renal Hx Renal Disorder: No - Endocrine/Metabolic Hx Endocrine Disorders: No - Hematological/Oncological Hx Blood Disorders: No - Integumentary Hx Dermatological Disorder: Yes Other/Comment: DRY ITCHY SCALP - Musculoskeletal/Rheumatological Hx Musculoskeletal Disorders: No - Gastrointestinal Hx Gastrointestinal Disorders: No - Genitourinary/Gynecological Hx Genitourinary Disorders: No - Psychiatric Hx Psychophysiologic Disorder: Yes Hx Bipolar Disorder: Yes Hx Physical Abuse: No Hx Substance Use: No - Past Surgical History Past Surgical History: No Previous - Anesthesia Hx Anesthesia: No Hx Anesthesia Reactions: No Hx Malignant Hyperthermia: No - Suicidal Assessment Feels Threatened In Home Enviroment: No Family/Social History - Physician Review Nursing Documentation Reviewed: Yes Family/Social History: Unknown Family HX Smoking Status: Never Smoked Hx Alcohol Use: Yes Hx Substance Use: No Hx Substance Use Treatment: No Allergies/Home Meds Allergies/Adverse Reactions: Allergies No Known Allergies Allergy (Verified 08/27/18 16:45) Home Medications: Home Meds Medication Instructions Recorded Confirmed No Known Home Med 07/01/18 08/27/18 Review of Systems - Physician Review All systems were reviewed & negative as marked: Yes - Review of Systems Constitutional: Normal. absent: Fevers Eyes: Normal ENT: Normal Respiratory: Normal. absent: SOB, Cough Cardiovascular: Normal. absent: Chest Pain Gastrointestinal: Other (+rectal pain/bleeding). absent: Diarrhea, Vomiting Genitourinary Male: Normal. absent: Dysuria, Frequency, Hematuria, Urinary Output Changes Musculoskeletal: Normal. absent: Back Pain, Neck Pain Skin: Normal. absent: Rash Neurological: Normal. absent: Headache, Dizziness Endocrine: Normal Hemo/Lymphatic: Normal Psychiatric: Normal Physical Exam Vital Signs Reviewed: Yes Vital Signs Temp Pulse Resp BP Pulse Ox 08/31/18 18:48 99.1 F 100 H 18 162/97 H 99 Temperature: Afebrile Blood Pressure: Hypertensive Pulse: Regular Respiratory Rate: Normal Appearance: Positive for: Well-Appearing, Non-Toxic, Comfortable Pain Distress: None Mental Status: Positive for: Alert and Oriented X 3 - Systems Exam Head: Present: Atraumatic, Normocephalic Pupils: Present: PERRL Extroacular Muscles: Present: EOMI Conjunctiva: Present: Normal Mouth: Present: Moist Mucous Membranes Neck: Present: Normal Range of Motion Respiratory/Chest: Present: Clear to Auscultation, Good Air Exchange. No: Respiratory Distress, Accessory Muscle Use Cardiovascular: Present: Regular Rate and Rhythm, Normal S1, S2. No: Murmurs Abdomen: No: Tenderness, Distention, Peritoneal Signs Rectal: Present: Normal Rectal Tone. No: Rectal Tenderness, Gross Blood, Melena Back: Present: Normal Inspection Upper Extremity: Present: Normal Inspection. No: Cyanosis, Edema Lower Extremity: Present: Normal Inspection. No: Edema Neurological: Present: GCS=15, CN II-XII Intact, Speech Normal Skin: Present: Warm, Dry, Normal Color. No: Rashes Psychiatric: Present: Alert, Oriented x 3, Normal Insight, Normal Concentration Medical Decision Making ED Course and Treatment: 08/31/18 20:00 Impression: 42 year old male c/o intermittent rectal pain and bleeding for 3 weeks. Plan: -- CBC -- Reassess and disposition Progress Notes: 08/31/18 22:00 Labs within normal limits. On re-evaluation, patient feels better and is in no acute distress. I have discussed the results and plan with the patient, who expresses understanding. Patient in agreement with plan to be discharged home. Patient is stable for discharge. Patient was instructed to follow up with physician or return if symptoms worsen or new concerning symptoms arise. - Lab Interpretations I have reviewed the lab results: Yes - Scribe Statement The provider has reviewed the documentation as recorded by the Scribe Mervat Smith All medical record entries made by the Scribe were at my direction and personally dictated by me. I have reviewed the chart and agree that the record accurately reflects my personal performance of the history, physical exam, medical decision making, and the department course for this patient. I have also personally directed, reviewed, and agree with the discharge instructions and disposition. Disposition/Present on Arrival - Present on Arrival Any Indicators Present on Arrival: No History of DVT/PE: No History of Uncontrolled Diabetes: No Urinary Catheter: No History of Decub. Ulcer: No History Surgical Site Infection Following: None - Disposition Have Diagnosis and Disposition been Completed?: Yes Diagnosis: Rectal bleeding Disposition: HOME/ ROUTINE Disposition Time: 22:00 Condition: GOOD Discharge Instructions (ExitCare): Bloody Stools Additional Instructions: follow up with gastroo doctor as scheduled Referrals: Cinthia Gregory MD [Primary Care Provider] - Follow up with primary Forms: [facility] (Vietnamese)
[2018-08-31 21:30] LABS: BASO # 0.04 K/mm3 (0.0-2.0); BASO % 0.6 % (0.0-3.0); EOS # 0.1 (0.0-0.7); EOS % 1.7 % (1.5-5.0); GRAN # 3.32 (1.4-6.5); GRAN % 50.4 % (50.0-68.0); HEMOGLOBIN 12.5 g/dL (14.0-18.0); LYMPH # 2.7 (1.2-3.4); LYMPH % 40.2 % (22.0-35.0); MEAN CELL VOLUME 93.3 fl (80.0-105.0); MEAN CORPUSCULAR HEMOGLOBIN 31.1 pg (25.0-35.0); MEAN CORPUSCULAR HGB CONC 33.3 g/dl (31.0-37.0); MONO # 0.5 (0.1-0.6); MONO % 7.1 % (1.0-6.0); RBC 4.02 10^6/uL (3.5-6.1); RED CELL DISTRIBUTION WIDTH 12.6 % (11.5-14.5); WHITE BLOOD COUNT 6.6 10^3/ul (4.5-11.0)
[2018-08-31 23:21] VITALS: BP 123/76; PULSE 99
[2018-08-31 23:22] VITALS: O2SAT 99
== END 2018-08-31 23:21 | disposition home or self-care (01) ==
LOC: ED 18:47
DX: K62.5 Hemorrhage of anus and rectum (principal)

== ENCOUNTER 2018-09-24 18:35 | Emergency (ER) | payer MEDICARE, MEDICAID ==
[2018-09-24 18:46] VITALS: BMI 32.8
--- NOTE | 2018-09-24 19:56 | ED PDOC ---
Arrival/HPI <Tres Carcamo - Last Filed: 09/24/18 20:03> - General Historian: Patient - History of Present Illness Narrative History of Present Illness (Text): 09/24/18 19:32 A 42 year old male, with no significant past medical history, presents to the emergency department complaining of left testicular pain. Patient reports he went out bowling earlier today at 11:00AM and developed pain to left testicle. Patient denies any swelling/redness to testicular region, penile discharge, any urinary symptoms, fever, abdominal pain, nausea, vomiting, or any other co mplaints at this time. PMD: Dr. Gregory <Lisa Fuller PA-C - Last Filed: 09/24/18 23:39> - General Chief Complaint: Male Genitourinary Time Seen by Provider: 09/24/18 18:47 Past Medical History - Provider Review Nursing Documentation Reviewed: Yes - Past History Past History: Non-Contributing - Infectious Disease Hx of Infectious Diseases: None - Tetanus Immunization Tetanus Immunization: Unknown - Cardiac Hx Cardiac Disorders: Yes Hx Hypertension: Yes - Pulmonary Hx Respiratory Disorders: No - Neurological Hx Neurological Disorder: No - HEENT Hx HEENT Disorder: No - Renal Hx Renal Disorder: No - Endocrine/Metabolic Hx Endocrine Disorders: No - Hematological/Oncological Hx Blood Disorders: No - Integumentary Hx Dermatological Disorder: Yes Other/Comment: DRY ITCHY SCALP - Musculoskeletal/Rheumatological Hx Musculoskeletal Disorders: No - Gastrointestinal Hx Gastrointestinal Disorders: No - Genitourinary/Gynecological Hx Genitourinary Disorders: No - Psychiatric Hx Psychophysiologic Disorder: Yes Hx Bipolar Disorder: Yes Hx Physical Abuse: No Hx Substance Use: No - Past Surgical History Past Surgical History: No Previous - Anesthesia Hx Anesthesia: No Hx Anesthesia Reactions: No Hx Malignant Hyperthermia: No - Suicidal Assessment Feels Threatened In Home Enviroment: No <Lisa Fuller PA-C - Last Filed: 09/24/18 23:39> Family/Social History - Physician Review Nursing Documentation Reviewed: Yes Family/Social History: No Known Family HX Smoking Status: Never Smoked Hx Alcohol Use: Yes Hx Substance Use: No Hx Substance Use Treatment: No <Lisa Fuller PA-C - Last Filed: 09/24/18 23:39> Allergies/Home Meds <Tres Carcamo - Last Filed: 09/24/18 20:03> <Lisa Fuller PA-C - Last Filed: 09/24/18 23:39> Allergies/Adverse Reactions: Allergies No Known Allergies Allergy (Verified 09/24/18 18:46) Review of Systems - Physician Review All systems were reviewed & negative as marked: Yes - Review of Systems Constitutional: absent: Fevers Gastrointestinal: absent: Abdominal Pain, Nausea, Vomiting Genitourinary Male: Other (left testicular pain, no redness/swelling to testes and no discharge). absent: Urinary Output Changes <Lisa Fuller PA-C - Last Filed: 09/24/18 23:39> Physical Exam Temperature: Afebrile Blood Pressure: Normal Pulse: Regular Respiratory Rate: Normal Appearance: Positive for: Well-Appearing, Non-Toxic, Comfortable Pain Distress: None Mental Status: Positive for: Alert and Oriented X 3 - Systems Exam Head: Present: Atraumatic, Normocephalic Pupils: Present: PERRL Extroacular Muscles: Present: EOMI Conjunctiva: Present: Normal Mouth: Present: Moist Mucous Membranes Neck: Present: Normal Range of Motion Respiratory/Chest: Present: Clear to Auscultation, Good Air Exchange. No: Respiratory Distress, Accessory Muscle Use Cardiovascular: Present: Regular Rate and Rhythm, Normal S1, S2. 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 No: Lesions, Penile Discharge, Penile Swelling, Masses, Erythema, Hernias, Testicle Swelling Back: Present: Normal Inspection Upper Extremity: Present: Normal Inspection. No: Cyanosis, Edema Lower Extremity: Present: Normal Inspection. No: Edema Neurological: Present: GCS=15, CN II-XII Intact, Speech Normal Skin: Present: Warm, Dry, Normal Color. No: Rashes Psychiatric: Present: Alert, Oriented x 3, Normal Insight, Normal Concentration <iLsa Fuller PA-C - Last Filed: 09/24/18 23:39> Medical Decision Making - Lab Interpretations Lab Results: 09/24/18 19:36 09/24/18 19:36 Lab Results 09/24/18 19:36: Sodium 141, Potassium 3.5 L, Chloride 105, Carbon Dioxide 23, Anion Gap 16, BUN 13, Creatinine 0.7 L, Est GFR ( Amer) > 60, Est GFR (Non-Af Amer) > 60, Random Glucose 169 H, Calcium 9.2, Total Bilirubin 0.3, AST 29, ALT 48, Alkaline Phosphatase 49, Total Protein 7.8, Albumin 4.3, Globulin 3.4, Albumin/Globulin Ratio 1.3 09/24/18 19:36: PT 12.4, INR 1.09, APTT 29.0 09/24/18 19:36: WBC 7.1, RBC 4.15, Hgb 12.9 L, Hct 38.9 L, MCV 93.7, MCH 31.1, MCHC 33.2, RDW 12.9, Plt Count 281, MPV 10.9, Gran % 54.4, Lymph % (Auto) 35.9 H , Clinch % (Auto) 7.7 H, Eos % (Auto) 1.4 L, Baso % (Auto) 0.6, Gran # 3.89, Lymph # (Auto) 2.6, Clinch # (Auto) 0.6, Eos # (Auto) 0.1, Baso # (Auto) 0.04 - RAD Interpretation Radiology Orders: 09/24/18 19:06 TESTES DUPLEX COMPLETE [US] Stat - Medication Orders Current Medication Orders: Discontinued Medications Ketorolac Tromethamine (Toradol) 30 mg IVP STAT STA Stop: 09/24/18 19:06 Last Admin: 09/24/18 19:38 Dose: 30 mg MAR Pain Assessment Document 09/24/18 19:38 (Rec: 09/24/18 19:39 [id number]) Pain Reassessment Is this a pain reassessment? Yes Location Left, Right or Bilateral Left Description Description Acute Pain Behavior Facial Grimacing IVP Administration Document 09/24/18 19:38 (Rec: 09/24/18 19:39 [id number]) Charges for Administration # of IVP Administrations 1 <Tres Carcamo - Last Filed: 09/24/18 20:03> ED Course and Treatment: 09/24/18 19:36 Impression: 42 year old male with numbness to bilateral face/hands/feet(radiating up to the knees). 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 Plan: -- Labs -- Urine Culture -- Urinalysis -- Toradol -- Testes Duplex Ultrasound -- Reassess and disposition Progress Notes: On re-evaluation, patient reports improvement of symptoms, denies any fever, abdominal pain or urinary symptoms. On exam, patient remains AAOx3, in no acute distress. Diagnostic results d/w the patient in great detail. Diagnosis of varicocele d/w the patient. Based on history, exam and diagnostic results, plan will be for outpatient follow up. Patient instructed to follow-up with pmd / referral provided in 1-2 days without fail. Advised to take medication as prescribed. Return to the emergency room at any time for any new or worsening symptoms. Patient states he fully agrees with and understands discharge instructions. States that he agrees with the plan and disposition. Verbalized and repeated discharge instructions and plan. I have given the patient opportunity to ask any additional questions. - RAD Interpretation Narrative RAD Interpretations (Text): US Testes: Both testicles are of normal size and shape and are of homogeneous echo texture. The right testicle measures 4.6 x 2.3 x 2.8 cm. The right epididymis measures 1.1 x 0.7 x 1.3 cm. The left testicle measures 4.9 x 2.5 x 2.6 cm. The left epididymis measures 1 x 0.9 x 1.5 cm. Color Doppler images reveal normal symmetrical flow to the testicles. There is no evidence for testicular torsion. There is no evidence of hydrocele. Bilateral varicocele is seen. IMPRESSION: 1. Bilateral varicocele. 2. Otherwise, normal study. Electronically signed on Sep 24, 2018 9:10:00 PM EST by: Marcelo Le M.D., CLARIBEL Certified By ABR & CBC[facility] Fellowship Trained MRI and CT Specialist Radiology Orders: 09/24/18 19:06 TESTES DUPLEX COMPLETE [US] Stat [place] Conservationist: Radiologist - Medication Orders Current Medication Orders: Discontinued Medications Ketorolac Tromethamine (Toradol) 30 mg IVP STAT STA Stop: 09/24/18 19:06 Last Admin: 09/24/18 19:38 Dose: 30 mg MAR Pain Assessment Document 09/24/18 19:38 (Rec: 09/24/18 19:39 [id number]) Pain Reassessment Is this a pain reassessment? Yes Location Left, Right or Bilateral Left Description Description Acute Pain Behavior Facial Grimacing IVP Administration Document 09/24/18 19:38 (Rec: 09/24/18 19:39 [id number]) Charges for Administration # of IVP Administrations 1 <Lisa Fuller PA-C - Last Filed: 09/24/18 23:39> - PA / SUPERVISOR [employer]OM[employer] / Resident Statement JEFF has reviewed & agrees with the documentation as recorded. JEFF has examined the patient and agrees with the treatment plan. <Tres Carcamo - Last Filed: 09/24/18 20:03> - PA / SUPERVISOR HOME [employer]CONOM[employer] / Resident Statement / has reviewed & agrees with the documentation as recorded. - Scribe Statement The provider has reviewed the documentation as recorded by the [place]oacano Humphrey Provider Scribe Attestation: All medical record entries made by the [place]rib[place] were at my direction and personally dictated by me. I have reviewed the chart and agree that the record accurately reflects my personal performance of the history, physical exam, medical decision making, and the department course for this patient. I have also personally directed, reviewed, and agree with the discharge instructions and disposition. <Lisa Fuller PA-C - Last Filed: 09/24/18 23:39> Disposition/Present on Arrival <Tres Carcamo - Last Filed: 09/24/18 20:03> - Present on Arrival Any Indicators Present on Arrival: No History of DVT/PE: No History of Uncontrolled Diabetes: No Urinary Catheter: No History of Decub. Ulcer: No History Surgical Site Infection Following: None - Disposition Have Diagnosis and Disposition been Completed?: Yes Disposition Time: 22:40 Patient Plan: Discharge <Lisa Fuller PA-C - Last Filed: 09/24/18 23:39> - Disposition Diagnosis: Varicocele, Left testicular pain Disposition: HOME/ ROUTINE Patient Problems: Current Active Problems Problem Status Onset Varicocele Acute Left testicular pain Acute Condition: STABLE Discharge Instructions (ExitCare): Varicocele Additional Instructions: Thank you for letting us take care of you today. You were treated for L testicular pain, varicocele. The emergency medical care you received today was directed at your acute symptoms. If you were prescribed any medication, please f ill it and take as directed. It may take several days for your symptoms to resolve. Return to the Emergency Department if your symptoms worsen, do not improve, or if you have any other problems. Please contact your doctor in 2 days for re-evaluation and follow up / or call one of the physicians/clinics you have been referred to that are listed on the Patient Visit Information form that is included in your discharge packet. Bring any paperwork you were given at discharge with you along with any medications you are taking to your follow up visit. Our treatment cannot replace ongoing medical care by a primary care provider (PCP) outside of the emergency department. Thank you for allowing the [facility] team to be part of your care today. If you had a urine culture test done : We will call you regarding any positive results If you had an US : A Radiologist will review the ED reading if any change in treatment is needed we will contact you. Prescriptions: Naproxen 500 mg PO BID #30 tab Referrals: Cinthia Gregory MD [Primary Care Provider] - Follow up with primary Jayson Seymour MD [Staff Provider] - Follow up with primary Forms: [employer] (Pashto)
[2018-09-24 19:59] LABS: BASO # 0.04 K/mm3 (0.0-2.0); BASO % 0.6 % (0.0-3.0); EOS # 0.1 (0.0-0.7); EOS % 1.4 % (1.5-5.0); GRAN # 3.89 (1.4-6.5); GRAN % 54.4 % (50.0-68.0); HEMOGLOBIN 12.9 g/dL (14.0-18.0); LYMPH # 2.6 (1.2-3.4); LYMPH % 35.9 % (22.0-35.0); MEAN CELL VOLUME 93.7 fl (80.0-105.0); MEAN CORPUSCULAR HEMOGLOBIN 31.1 pg (25.0-35.0); MEAN CORPUSCULAR HGB CONC 33.2 g/dl (31.0-37.0); MEAN PLATELET VOLUME 10.9 fl (7.0-11.0); MONO # 0.6 (0.1-0.6); MONO % 7.7 % (1.0-6.0); RBC 4.15 10^6/uL (3.5-6.1); RED CELL DISTRIBUTION WIDTH 12.9 % (11.5-14.5); WHITE BLOOD COUNT 7.1 10^3/uL (4.5-11.0)
[2018-09-24 20:00] LABS: INR 1.09; PROTHROMBIN TIME 12.4 SECONDS (9.4-12.5)
[2018-09-24 20:02] LABS: ALB/GLOB RATIO 1.3 (1.1-1.8); ALBUMIN 4.3 g/dL (3.0-4.8); ALT/SGPT 48 U/L (7-56); AST/SGOT 29 U/L (17-59); BLOOD UREA NITROGEN 13 mg/dL (7-21); CALCIUM 9.2 mg/dL (8.4-10.5); GFR NON-AFRICAN AMERICAN > 60
[2018-09-24 21:30] VITALS: RESP 18
[2018-09-24 22:26] LABS: PH,URINE 6.5 (4.7-8.0); URINE BILIRUBIN NEGATIVE (NEGATIVE); URINE BLOOD NEGATIVE (NEGATIVE); URINE GLUCOSE (UA) NEGATIVE (NEGATIVE); URINE LEUKOCYTE ESTERASE NEGATIVE Leu/uL (NEGATIVE); URINE PROTEIN NEGATIVE mg/dL (<30 mg/dL); URINE UROBILINOGEN 0.2 E.U./dL (<1 E.U./dL)
[2018-09-24 22:27] LABS: URINE APPEARANCE CLEAR (CLEAR); URINE COLOR YELLOW (YELLOW)
[2018-09-24 23:13] VITALS: BP 125/78; PULSE 87; TEMP 98.2; O2SAT 98
--- NOTE | 2018-09-25 11:20 | US ---
Date of service: 09/24/2018 HISTORY: L testicle pain, r/o torsion TECHNIQUE: Realtime sonography through the scrotum with color and doppler flow. COMPARISON: Testicular ultrasound performed 07/05/18 FINDINGS: RIGHT TESTICLE: Measures 4.6 x 2.3 x 2.9 cm. Homogeneous echotexture. Blood flow is demonstrated. RIGHT EPIDIDYMIS: Unremarkable. LEFT TESTICLE: Measures 4.9 x 2.5 x 2.6 cm. Homogeneous echotexture. Blood flow is demonstrated. LEFT EPIDIDYMIS: Unremarkable. HYDROCELE: None. VARICOCELE: Bilateral varicoceles. OTHER FINDINGS: None. IMPRESSION: Bilateral varicoceles. Preliminary impression was provided by [employer].
== END 2018-09-24 23:14 | disposition home or self-care (01) ==
LOC: ED 18:35
DX: N50.812 Left testicular pain (principal); I86.1 Scrotal varices; I10 Essential (primary) hypertension
CPT/HCPCS: 80053; 81003; 85025; 85610; 85730; 87086; 93975; 96374; 99284; J1885

== ENCOUNTER 2018-10-13 16:47 | Emergency (ER) | payer MEDICARE, MEDICAID ==
[2018-10-13 16:48] VITALS: BMI 32.8
--- NOTE | 2018-10-13 17:17 | ED PDOC ---
Arrival/HPI - General Chief Complaint: Male Genitourinary Time Seen by Provider: 10/13/18 16:52 Historian: Patient - History of Present Illness Narrative History of Present Illness (Text): 10/13/18 16:52 42 yr old male w/ hx of varicocele p/w testicular pain. Testicular pain began while he was walking earlier, stabbing without radiation. Did not take any pain meds for the pain. Multiple occurences in the past dx w/ varicocele- he notes pain feels the same. No trauma or fall. He denies any abdominal pain, leg pain, anal pain or back pain. No penile pain. No recent sex or penile d/c or rashes. No other complaints. Time/Duration: 1-3 hours (pt notes onset of left testicular pain as 15:00 today while walking) Symptom Onset: Sudden Symptom Course: Unchanged Context: Walking Past Medical History - Provider Review Nursing Documentation Reviewed: Yes - Past History Past History: Non-Contributing - Infectious Disease Hx of Infectious Diseases: None - Tetanus Immunization Tetanus Immunization: Unknown - Cardiac Hx Cardiac Disorders: Yes Hx Hypertension: Yes - Pulmonary Hx Respiratory Disorders: No - Neurological Hx Neurological Disorder: No - HEENT Hx HEENT Disorder: No - Renal Hx Renal Disorder: No - Endocrine/Metabolic Hx Endocrine Disorders: No - Hematological/Oncological Hx Blood Disorders: No - Integumentary Hx Dermatological Disorder: Yes Other/Comment: DRY ITCHY SCALP - Musculoskeletal/Rheumatological Hx Musculoskeletal Disorders: No - Gastrointestinal Hx Gastrointestinal Disorders: No - Genitourinary/Gynecological Hx Genitourinary Disorders: No - Psychiatric Hx Psychophysiologic Disorder: Yes Hx Bipolar Disorder: Yes Hx Physical Abuse: No Hx Substance Use: No - Past Surgical History Past Surgical History: No Previous - Anesthesia Hx Anesthesia: No Hx Anesthesia Reactions: No Hx Malignant Hyperthermia: No - Suicidal Assessment Feels Threatened In Home Enviroment: No Family/Social History - Physician Review Nursing Documentation Reviewed: Yes Family/Social History: No Known Family HX Smoking Status: Never Smoked Hx Alcohol Use: Yes Hx Substance Use: No Hx Substance Use Treatment: No Allergies/Home Meds Allergies/Adverse Reactions: Allergies No Known Allergies Allergy (Verified 09/24/18 18:46) Review of Systems - Physician Review All systems were reviewed & negative as marked: Yes - Review of Systems Constitutional: absent: Fatigue Eyes: absent: Vision Changes, Photophobia ENT: absent: Hearing Changes, Tinnitus Respiratory: absent: SOB, Cough Cardiovascular: absent: Chest Pain Gastrointestinal: absent: Abdominal Pain, Stool Changes, Constipation, Diarrhea, Nausea, Vomiting, Appetite Changes, Hematochezia, Hematemesis, Anorexia, Food Intolerance Genitourinary Male: Other (patient notes sharp/stabbing left testicular pain as of 15:00 today). absent: Dysuria, Frequency, Hematuria, Urinary Output Changes Musculoskeletal: absent: Arthralgias, Back Pain, Neck Pain, Joint Swelling Skin: Normal. absent: Rash, Pruritis, Skin Lesions, Laceration, Abscess, Ulcer, Cellulitis Neurological: absent: Headache, Dizziness Psychiatric: absent: Anxiety, Depression Physical Exam Vital Signs Reviewed: Yes Temperature: Afebrile Blood Pressure: Hypertensive Pulse: Regular Respiratory Rate: Normal Appearance: Positive for: Well-Appearing, Non-Toxic Pain Distress: Mild Mental Status: Positive for: Alert and Oriented X 3 - Systems Exam Head: Present: Atraumatic, Normocephalic Pupils: Present: PERRL. No: Sluggish Extroacular Muscles: Present: EOMI Conjunctiva: Present: Normal Mouth: Present: Moist Mucous Membranes Pharnyx: Present: Normal. No: ERYTHEMA, EXUDATE Neck: Present: Normal Range of Motion. No: Meningeal Signs Respiratory/Chest: Present: Clear to Auscultation, Good Air Exchange. No: Respiratory Distress, Accessory Muscle Use Cardiovascular: Present: Regular Rate and Rhythm, Normal S1, S2. No: Murmurs Abdomen: No: Tenderness, Distention, Peritoneal Signs Genitourinary Male: Present: Normal External Genitalia, Testicle Tenderness (left testicle TTP). No: Lesions, Penile Discharge, Penile Swelling, Masses, Erythema, Hernias, Testicle Swelling Back: Present: Normal Inspection Upper Extremity: Present: Normal Inspection. No: Cyanosis, Edema Lower Extremity: Present: Normal Inspection. No: Edema, CALF TENDERNESS, NORMAL PULSES Neurological: Present: GCS=15, CN II-XII Intact, Speech Normal Skin: Present: Warm, Dry, Normal Color. No: Rashes Psychiatric: Present: Alert, Oriented x 3, Normal Insight, Normal Concentration Medical Decision Making ED Course and Treatment: 10/13/18 16:52 Impression:42 year old male who presents to the ED c/o sharp/stabbing left testicular pain that started today while walking at 15:00 today. Pt denies any abdominal pain. Abdomen completely Non-ttp. No CVAT or vertebral tenderness. No rash. No hx of STDS. No rashes. No constipation or diarrhea. No n/v. No hx of hernias. No hernia sac noted on exam. Likely recurrent varicocele pain. Plan: -- Urinalysis -- US of testes duplex complete -- Reassess and disposition Prior Visits: Notes and results from previous visits were reviewed. Patient was last seen in the emergency department on 09/24/18 complaining of left testicular pain. Pt was discharged home in stable condition with diagnosis of Varicocele, Left testicular pain, and was directed to follow up with PMD. Prescriptions: Naproxen 500 mg PO BID #30 tab Progress Notes: 10/13/18 20:42 US Scrotum. CLINICAL HISTORY: Testicular pain TECHNIQUE: Real-time ultrasound of the scrotum with color Doppler and image documentation. COMPARISON: None provided. FINDINGS: RIGHT TESTICLE: Normal in size and echogenicity, no abnormal mass. Normal Doppler flow. LEFT TESTICLE: Normal in size and echogenicity, no abnormal mass. Normal Doppler flow. EPIDIDYMIDES: Within normal limits in size and vascularity SCROTUM: Unremarkable. No hydrocele, varicocele, or extratesticular mass seen. IMPRESSION: No acute abnormality evident on sonographic examination of the scrotum 10/13/18 20:51 UA and US unremarkable Pain improved, endorsed to pt to f/u w/ urologist: he is agreeable clear for d/c home. - RAD Interpretation Radiology Orders: 10/13/18 17:02 TESTES DUPLEX COMPLETE [US] Stat - Scribe Statement The provider has reviewed the documentation as recorded by the Scribe Vivian Calvillo All medical record entries made by the Scribe were at my direction and personally dictated by me. I have reviewed the chart and agree that the record accurately reflects my personal performance of the history, physical exam, medical decision making, and the department course for this patient. I have also personally directed, reviewed, and agree with the discharge instructions and disposition. Disposition/Present on Arrival - Present on Arrival Any Indicators Present on Arrival: No History of DVT/PE: No History of Uncontrolled Diabetes: No Urinary Catheter: No History of Decub. Ulcer: No History Surgical Site Infection Following: None - Disposition Have Diagnosis and Disposition been Completed?: Yes Diagnosis: Testicular pain Disposition: HOME/ ROUTINE Disposition Time: 20:52 Condition: GOOD Discharge Instructions (ExitCare): Varicocele Additional Instructions: FRANNIE MORRIS, thank you for letting us take care of you today. Your provider was Ottoniel Dewitt and you were treated for TESTICULAR PAIN. The emergency medical care you received today was directed at your acute symptoms. If you were prescribed any medication, please fill it and take as directed. It may take several days for your symptoms to resolve. Return to the Emergency Department if your symptoms worsen, do not improve, or if you have any other problems. Please contact your doctor or call one of the physicians/clinics you have been referred to that are listed on the Patient Visit Information form that is included in your discharge packet. Bring any paperwork you were given at discharge with you along with any medications you are taking to your follow up visit. Our treatment cannot replace ongoing medical care by a primary care provider outside of the emergency department. Thank you for allowing the [facility] team to be part of your care today. If you had an X-Ray or CT scan: A Radiologist will review the ED reading if any change in treatment is needed we will contact you. If you had a blood, urine, or wound culture: It will take several days for the results, if any change in treatment is needed we will contact you. If you had an STI test: It will take 48 hours for the results. Please call after 1 week if you have not heard back. Referrals: [facility] [Outside] - Follow up with primary [facility] [Outside] - Follow up with primary [facility] [Outside] - Follow up with primary Mike Elias MD [Staff Provider] - Follow up with primary Forms: [employer] (Albanian)
[2018-10-13 17:23] VITALS: RESP 18; TEMP 98.3; O2SAT 98
[2018-10-13 18:46] LABS: PH,URINE 7.5 (4.7-8.0); URINE BILIRUBIN NEGATIVE (NEGATIVE); URINE BLOOD NEGATIVE (NEGATIVE); URINE GLUCOSE (UA) NEGATIVE (NEGATIVE); URINE LEUKOCYTE ESTERASE NEGATIVE Leu/uL (NEGATIVE); URINE PROTEIN NEGATIVE mg/dL (<30 mg/dL); URINE UROBILINOGEN 0.2 E.U./dL (<1 E.U./dL)
[2018-10-13 18:47] LABS: URINE APPEARANCE CLEAR (CLEAR); URINE COLOR YELLOW (YELLOW)
[2018-10-13 22:12] VITALS: BP 132/85; PULSE 85
--- NOTE | 2018-10-14 12:27 | US ---
Date of service: 10/13/2018 HISTORY: testicular pain TECHNIQUE: Realtime sonography through the scrotum with color and doppler flow. COMPARISON: None Available. FINDINGS: RIGHT TESTICLE: Measures 4.7 8 x 2.43 x 2.60 cm. Normal echotexture and flow. RIGHT EPIDIDYMIS: Epididymal head measures 1.07 x 0.57 x 1.17 cm. Grossly unremarkable appearance with normal flow. LEFT TESTICLE: Measures 3.52 x 1.83 x 2.71 cm. Normal echotexture and flow. LEFT EPIDIDYMIS: Epididymal head measures 1.03 x 0.79 x 0.91 cm. Grossly unremarkable appearance with normal flow. HYDROCELE: Bilateral VARICOCELE: Bilateral OTHER FINDINGS: The report concurs with the preliminary [facility] report IMPRESSION: Bilateral hydroceles and varicoceles. No evidence of torsion
== END 2018-10-13 22:05 | disposition home or self-care (01) ==
LOC: ED 16:47
DX: N50.812 Left testicular pain (principal)

== ENCOUNTER 2018-10-22 13:26 | Emergency (ER) | payer MEDICARE, MEDICAID ==
[2018-10-22 13:27] VITALS: BMI 39.5
--- NOTE | 2018-10-22 14:17 | ED PDOC ---
Arrival/HPI - General Chief Complaint: GI Problem Historian: Patient - History of Present Illness Narrative History of Present Illness (Text): 10/22/18 14:17 42 y/o m w/ pmhx of varicocele present to the emergency department complaining of rectal bleeding since earlier today. Patient states bleeding started earlier this morning and reports seeing red stools. Patient stated he felt constipated and experienced dizziness, nausea, vomiting x1, and belly pain. Patient notes he lives by himself. Patient denies any diarrhea, fever, chest pain, or any other complaints. Time/Duration: 4-6 hours (earlier today) Symptom Onset: Gradual Activities at Onset: Light Context: Home Past Medical History - Provider Review Nursing Documentation Reviewed: Yes - Past History Past History: Non-Contributing - Infectious Disease Hx of Infectious Diseases: None - Tetanus Immunization Tetanus Immunization: Unknown - Cardiac Hx Cardiac Disorders: No - Pulmonary Hx Respiratory Disorders: No - Neurological Hx Neurological Disorder: No - HEENT Hx HEENT Disorder: No - Renal Hx Renal Disorder: No - Endocrine/Metabolic Hx Endocrine Disorders: No - Hematological/Oncological Hx Blood Disorders: No - Integumentary Hx Dermatological Disorder: No - Musculoskeletal/Rheumatological Hx Musculoskeletal Disorders: No - Gastrointestinal Other/Comment: Hemorrhoid - Genitourinary/Gynecological Hx Genitourinary Disorders: No - Psychiatric Hx Psychophysiologic Disorder: Yes Hx Bipolar Disorder: Yes Hx Physical Abuse: No Hx Substance Use: No - Past Surgical History Past Surgical History: No Previous - Anesthesia Hx Anesthesia Reactions: (UNKOWN) Hx Malignant Hyperthermia: (UNKNOWN) - Suicidal Assessment Feels Threatened In Home Enviroment: No Family/Social History - Physician Review Nursing Documentation Reviewed: Yes Family/Social History: No Known Family HX Smoking Status: Never Smoked Hx Alcohol Use: No Hx Substance Use: No Hx Substance Use Treatment: No Allergies/Home Meds Allergies/Adverse Reactions: Allergies No Known Allergies Allergy (Verified 10/22/18 13:43) Home Medications: Home Meds Medication Instructions Recorded Confirmed No Known Home Med 10/22/18 10/22/18 Review of Systems - Physician Review All systems were reviewed & negative as marked: Yes - Review of Systems Constitutional: absent: Fevers Cardiovascular: absent: Chest Pain Gastrointestinal: Constipation, Nausea. absent: Diarrhea Genitourinary Male: Other (rectal bleeding; red stools) Physical Exam Vital Signs Reviewed: Yes Vital Signs Temp Pulse Resp BP Pulse Ox 10/22/18 13:40 97.9 F 90 18 156/97 H 98 Temperature: Afebrile Blood Pressure: Normal Pulse: Regular Respiratory Rate: Normal - Systems Exam Head: Present: Atraumatic, Normocephalic Pupils: Present: PERRL Extroacular Muscles: Present: EOMI Conjunctiva: Present: Normal Respiratory/Chest: Present: Clear to Auscultation, Good Air Exchange. No: Respiratory Distress, Accessory Muscle Use Cardiovascular: Present: Regular Rate and Rhythm, Normal S1, S2. No: Murmurs Abdomen: Present: Distention (soft and distended; non tender) Rectal: Present: Other (no pain to insertion of finger; anal wink presevered; hemacult positive). No: Hemorrhoids (no hemorrhoids noted) Back: Present: Normal Inspection Upper Extremity: Present: Normal Inspection. No: Cyanosis, Edema Lower Extremity: Present: Normal Inspection. No: Edema Neurological: Present: GCS=15, CN II-XII Intact, Speech Normal Skin: Present: Warm, Dry, Normal Color. No: Rashes Psychiatric: Present: Alert, Oriented x 3, Normal Insight, Normal Concentration Medical Decision Making ED Course and Treatment: 10/22/18 14:27 Impression: 42 year old male presenting to the emergency department with rectal bleeding. Differential Diagnosis included but are not limited to: -- Rectal fissure -- External hemorrhoids -- GI bleed Plan: --Type and screen --Labs -- Zofran -- IV fluids -- Urinalysis -- Reassess and disposition Prior Visits: Notes and results from previous visits were reviewed. Patient was last seen in 09/2018 Progress Notes: 10/22/18 15:39 Review of labs shows Hgb of 12.9 and most consistent with his baseline. Pending UA. 10/22/18 15:59 UA negative for trace blood in the urine. Patient reassessed and reports no pain at this time. He is advised to follow up with his PCP in 1-2 days and encouraged to come back to the ED should worsening symptoms should arise. He demonstrates understanding and will follow up. He is stable for discharge. - Scribe Statement The provider has reviewed the documentation as recorded by the Natalyibcheyenne Batista All medical record entries made by the Scribe were at my direction and personally dictated by me. I have reviewed the chart and agree that the record accurately reflects my personal performance of the history, physical exam, medical decision making, and the department course for this patient. I have also personally directed, reviewed, and agree with the discharge instructions and disposition. Disposition/Present on Arrival - Present on Arrival Any Indicators Present on Arrival: No History of DVT/PE: No History of Uncontrolled Diabetes: No Urinary Catheter: No History of Decub. Ulcer: No History Surgical Site Infection Following: None - Disposition Have Diagnosis and Disposition been Completed?: Yes Diagnosis: Rectal bleeding Disposition: HOME/ ROUTINE Disposition Time: 15:58 Patient Plan: Discharge Condition: STABLE Discharge Instructions (ExitCare): Bloody Stools, Adult (DC) Print Language: JAPANESE Additional Instructions: All medical record entries made by the Scribe were at my direction and personally dictated by me. I have reviewed the chart and agree that the record accurately reflects my personal performance of the history, physical exam, medical decision making, and the department course for this patient. I have also personally directed, reviewed, and agree with the discharge instructions and disposition. Referrals: Annabella Garay MD [Medical Doctor] - Follow up with primary [facility] at [facility] [place] [Outside] - Follow up with primary Forms: [employer] (Upper Sorbian)
[2018-10-22] MEDS ORDERED: Sodium Chloride 0.9% 1,000 ML IV STA (14:18)
[2018-10-22 14:52] LABS: BASO # 0.02 K/mm3 (0.0-2.0); BASO % 0.3 % (0.0-3.0); EOS # 0.1 (0.0-0.7); EOS % 1.2 % (1.5-5.0); GRAN # 4.22 (1.4-6.5); GRAN % 57.5 % (50.0-68.0); HEMOGLOBIN 12.9 g/dL (14.0-18.0); LYMPH # 2.3 (1.2-3.4); LYMPH % 31.3 % (22.0-35.0); MEAN CELL VOLUME 93.4 fl (80.0-105.0); MEAN CORPUSCULAR HEMOGLOBIN 31.7 pg (25.0-35.0); MEAN CORPUSCULAR HGB CONC 33.9 g/dl (31.0-37.0); MEAN PLATELET VOLUME 10.5 fl (7.0-11.0); MONO # 0.7 (0.1-0.6); MONO % 9.7 % (1.0-6.0); RBC 4.07 10^6/uL (3.5-6.1); RED CELL DISTRIBUTION WIDTH 12.8 % (11.5-14.5); WHITE BLOOD COUNT 7.3 10^3/uL (4.5-11.0)
[2018-10-22 15:01] LABS: INR 1.12; PARTIAL THROMBOPLASTIN TIME 29.9 Seconds (25.1-36.5); PROTHROMBIN TIME 12.8 SECONDS (9.4-12.5)
[2018-10-22 15:14] LABS: ALB/GLOB RATIO 1.4 (1.1-1.8); ALBUMIN 4.7 g/dL (3.0-4.8); ALT/SGPT 70 U/L (7-56); AST/SGOT 54 U/L (17-59); BLOOD UREA NITROGEN 13 mg/dL (7-21); CALCIUM 9.2 mg/dL (8.4-10.5); GFR NON-AFRICAN AMERICAN > 60
[2018-10-22 15:54] LABS: URINE BILIRUBIN NEGATIVE (NEGATIVE); URINE BLOOD NEGATIVE (NEGATIVE); URINE GLUCOSE (UA) NEGATIVE (NEGATIVE); URINE LEUKOCYTE ESTERASE NEGATIVE Leu/uL (NEGATIVE); URINE PROTEIN NEGATIVE mg/dL (<30 mg/dL)
[2018-10-22 15:55] LABS: URINE APPEARANCE CLEAR (CLEAR); URINE COLOR YELLOW (YELLOW)
[2018-10-22 16:16] VITALS: BP 121/56; PULSE 75; RESP 19; TEMP 98; O2SAT 99
== END 2018-10-22 16:13 | disposition home or self-care (01) ==
LOC: ED 13:26
DX: K62.5 Hemorrhage of anus and rectum (principal)
CPT/HCPCS: 80053; 81003; 85025; 85610; 85730; 86850; 86900; 96361; 96374; 99284; J2405; J7030

== ENCOUNTER 2018-11-04 17:39 | Emergency (ER) | payer MEDICARE, MEDICAID ==
[2018-11-04 17:39] VITALS: BMI 39.5
--- NOTE | 2018-11-04 18:46 | ED PDOC ---
Arrival/HPI - General Chief Complaint: GI Problem Time Seen by Provider: 11/04/18 17:46 Historian: Patient - History of Present Illness Narrative History of Present Illness (Text): 11/04/18 18:43 A 43 year old male, whose past medical history includes varicocele, presents to the emergency department with a complaint of an episode of rectal bleeding today. The patient's 911 operator notes that the patient also complained of abdom inal pain today. The patient denies fevers, chills, headache, dizziness, chest pain, shortness of breath, dyspnea on exertion, cough, nausea, vomiting, diarrhea, back pain, neck pain, urinary changes, or any other complaint. PMD: Dr. Hernandez Time/Duration: Other (Today) Symptom Onset: Sudden Symptom Course: Unchanged Activities at Onset: Rest, Light Context: Home Past Medical History - Provider Review Nursing Documentation Reviewed: Yes - Past History Past History: Non-Contributing - Infectious Disease Hx of Infectious Diseases: None - Tetanus Immunization Tetanus Immunization: Unknown - Cardiac Hx Cardiac Disorders: No - Pulmonary Hx Respiratory Disorders: No - Neurological Hx Neurological Disorder: No - HEENT Hx HEENT Disorder: No - Renal Hx Renal Disorder: No - Endocrine/Metabolic Hx Endocrine Disorders: No - Hematological/Oncological Hx Blood Disorders: No - Integumentary Hx Dermatological Disorder: No - Musculoskeletal/Rheumatological Hx Musculoskeletal Disorders: No - Gastrointestinal Other/Comment: Hemorrhoid - Genitourinary/Gynecological Hx Genitourinary Disorders: No - Psychiatric Hx Bipolar Disorder: Yes Hx Substance Use: No - Past Surgical History Past Surgical History: No Previous - Anesthesia Hx Anesthesia: No Hx Anesthesia Reactions: No Hx Malignant Hyperthermia: No - Suicidal Assessment Feels Threatened In Home Enviroment: No Family/Social History - Physician Review Nursing Documentation Reviewed: Yes Family/Social History: No Known Family HX Smoking Status: Never Smoked Hx Alcohol Use: No Hx Substance Use: No Hx Substance Use Treatment: No Allergies/Home Meds Allergies/Adverse Reactions: Allergies No Known Allergies Allergy (Verified 11/02/18 08:14) Home Medications: Home Meds Medication Instructions Recorded Confirmed No Known Home Med 10/22/18 11/04/18 ARIPiprazole [Abilify] 5 mg PO DAILY 10/31/18 11/04/18 Benztropine [Benztropine Mesylate] 1 mg PO BID 10/31/18 11/04/18 Divalproex [Depakote DR(*BID*)] 500 mg PO HS 10/31/18 11/04/18 Ergocalciferol (Vitamin D2) 50,000 unit PO QWK 10/31/18 11/04/18 [Vitamin D2] Fenofibrate Nanocrystallized 160 mg PO DAILY 10/31/18 11/04/18 [Triglide] Linaclotide [Linzess] 72 mcg PO DAILY 10/31/18 11/04/18 Simvastatin 10 mg PO DAILY 10/31/18 11/04/18 Review of Systems - Physician Review All systems were reviewed & negative as marked: Yes - Review of Systems Constitutional: absent: Fevers Respiratory: absent: SOB, Cough Cardiovascular: absent: Chest Pain, ARTEAGA Gastrointestinal: Abdominal Pain, Other (Rectal bleeding). absent: Diarrhea, Nausea, Vomiting Genitourinary Male: absent: Urinary Output Changes Musculoskeletal: absent: Back Pain, Neck Pain Neurological: absent: Headache, Dizziness Physical Exam Vital Signs Reviewed: Yes Vital Signs Temp Pulse Resp BP Pulse Ox 11/04/18 17:39 99.6 F 108 H 18 150/96 H 96 Temperature: Afebrile Blood Pressure: Hypertensive Pulse: Tachycardic Respiratory Rate: Normal Appearance: Positive for: Well-Appearing, Non-Toxic, Comfortable Pain Distress: None Mental Status: Positive for: Alert and Oriented X 3 - Systems Exam Head: Present: Atraumatic, Normocephalic Pupils: Present: PERRL Extroacular Muscles: Present: EOMI Conjunctiva: Present: Normal Mouth: Present: Moist Mucous Membranes Neck: Present: Normal Range of Motion Respiratory/Chest: Present: Clear to Auscultation, Good Air Exchange. No: Respiratory Distress, Accessory Muscle Use Cardiovascular: Present: Regular Rate and Rhythm, Normal S1, S2. 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 Dark stool. Guaiac positive.). No: Hemorrhoids Back: Present: Normal Inspection Upper Extremity: Present: Normal Inspection. No: Cyanosis, Edema Lower Extremity: Present: Normal Inspection. No: Edema Neurological: Present: GCS=15, CN II-XII Intact, Speech Normal Skin: Present: Warm, Dry, Normal Color. No: Rashes Psychiatric: Present: Alert, Oriented x 3, Normal Insight, Normal Concentration Medical Decision Making ED Course and Treatment: 11/04/18 18:46 Impression: A 43 year old male presents to the emergency department with a complaint of rectal bleeding. Plan: -- Labs -- Reassess and disposition Prior Visits: Notes and results from previous visits were reviewed. Patient was last seen in the emergency department on 10/22/18. Patient previous medical records show that the patient has been to the Emergency department multiple times for rectal bleeding. His hemoglobin has been consistently stable between 12.5 to 12.9. Progress Notes: Patient's hgb is 12.9 which is stable. Patient is cleared for discharge. Results d/w the patient, encouraged to follow up with pmd and with his GI. - PA / [employer] FLOOR [employer]AYER / Resident Statement MD/DO has reviewed & agrees with the documentation as recorded. - Scribe Statement The provider has reviewed the documentation as recorded by the Scribe Sary Duenas Provider Scribe Attestation: All medical record entries made by the Scribe were at my direction and persona lly dictated by me. I have reviewed the chart and agree that the record accurately reflects my personal performance of the history, physical exam, medical decision making, and the department course for this patient. I have also personally directed, reviewed, and agree with the discharge instructions and disposition. Disposition/Present on Arrival - Present on Arrival Any Indicators Present on Arrival: No History of DVT/PE: No History of Uncontrolled Diabetes: No Urinary Catheter: No History of Decub. Ulcer: No History Surgical Site Infection Following: None - Disposition Have Diagnosis and Disposition been Completed?: Yes Diagnosis: Rectal bleeding Disposition: HOME/ ROUTINE Disposition Time: 19:15 Patient Plan: Discharge Patient Problems: Current Active Problems Problem Status Onset Rectal bleeding Acute Condition: STABLE Discharge Instructions (ExitCare): Bloody Stools, Adult (DC) Additional Instructions: Thank you for letting us take care of you today. You were treated for rectal bleeding. The emergency medical care you received today was directed at your acute symptoms.Return to the Emergency Department if your symptoms worsen, do not improve, or if you have any other problems. Please contact your doctor in 2 days for re-evaluation and follow up. Bring any paperwork you were given at discharge with you along with any medications you are taking to your follow up visit. Our treatment cannot replace ongoing medical care by a primary care provider (PCP) outside of the emergency department. Thank you for allowing the [facility] team to be part of your care today. Referrals: Cinthia Gregory MD [Primary Care Provider] - Follow up with primary Forms: [employer] (Icelandic)
[2018-11-04 19:03] LABS: BASO # 0.02 K/mm3 (0.0-2.0); BASO % 0.3 % (0.0-3.0); EOS # 0.1 (0.0-0.7); EOS % 1.6 % (1.5-5.0); GRAN # 3.31 (1.4-6.5); HEMOGLOBIN 12.9 g/dL (14.0-18.0); LYMPH # 2.3 (1.2-3.4); LYMPH % 38.1 % (22.0-35.0); MEAN CELL VOLUME 92.9 fl (80.0-105.0); MEAN CORPUSCULAR HEMOGLOBIN 31.5 pg (25.0-35.0); MEAN CORPUSCULAR HGB CONC 33.9 g/dl (31.0-37.0); MEAN PLATELET VOLUME 10.9 fl (7.0-11.0); MONO # 0.4 (0.1-0.6); RBC 4.1 10^6/uL (3.5-6.1); RED CELL DISTRIBUTION WIDTH 12.7 % (11.5-14.5); WHITE BLOOD COUNT 6.1 10^3/uL (4.5-11.0)
[2018-11-04 19:09] LABS: INR 1.04; PARTIAL THROMBOPLASTIN TIME 30.2 Seconds (25.1-36.5); PROTHROMBIN TIME 11.9 SECONDS (9.4-12.5)
[2018-11-04 19:21] LABS: ALB/GLOB RATIO 1.3 (1.1-1.8); ALBUMIN 4.4 g/dL (3.0-4.8); ALT/SGPT 49 U/L (7-56); AST/SGOT 37 U/L (17-59); BLOOD UREA NITROGEN 15 mg/dL (7-21); CALCIUM 9.7 mg/dL (8.4-10.5); GFR NON-AFRICAN AMERICAN > 60
[2018-11-04 19:47] VITALS: BP 136/92; PULSE 89; RESP 19; TEMP 98; O2SAT 99
== END 2018-11-04 19:48 | disposition home or self-care (01) ==
LOC: ED 17:39
DX: K62.5 Hemorrhage of anus and rectum (principal)

== ENCOUNTER 2018-11-09 16:22 | Emergency (ER) | payer MEDICARE, MEDICAID ==
[2018-11-09 16:44] VITALS: BMI 45.8
[2018-11-09 16:49] VITALS: RESP 18; O2SAT 96
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
[2018-11-09 18:51] VITALS: BP 136/74; PULSE 86; TEMP 97.6
== END 2018-11-09 18:51 | disposition home or self-care (01) ==
LOC: ED 16:22
DX: S09.90XA Unspecified injury of head, initial encounter (principal); W50.0XXA Accidental hit or strike by another person, initial encounter

== ENCOUNTER 2018-11-21 04:11 | Observation (INO) | payer MEDICARE, MEDICAID ==
--- NOTE | 2018-11-21 04:27 | ED PDOC ---
Arrival/HPI - General Chief Complaint: Chest Pain Time Seen by Provider: 11/21/18 04:21 Historian: Patient - History of Present Illness Narrative History of Present Illness (Text): 11/21/18 04:27 Marcelo Huynh is a 43 year old male, whose past medical history includes bipolar disorder, who presents to the Emergency department complaining of chest pain. Patient states he woke up with mid-sternal chest pain at 12am today with some associated shortness of breath. Patient denies any fever, chills, nausea, vomiting, diarrhea, urinary symptoms, back pain, neck pain, headache, dizziness, or any other complaints. Symptom Onset: Gradual Symptom Course: Unchanged Activities at Onset: Light Context: Home Past Medical History - Provider Review Nursing Documentation Reviewed: Yes - Past History Past History: Non-Contributing - Infectious Disease Hx of Infectious Diseases: None - Tetanus Immunization Tetanus Immunization: Unknown - Cardiac Hx Cardiac Disorders: No - Pulmonary Hx Respiratory Disorders: No - Neurological Hx Neurological Disorder: No - HEENT Hx HEENT Disorder: No - Renal Hx Renal Disorder: No - Endocrine/Metabolic Hx Endocrine Disorders: No - Hematological/Oncological Hx Blood Disorders: No - Integumentary Hx Dermatological Disorder: No - Musculoskeletal/Rheumatological Hx Musculoskeletal Disorders: No - Gastrointestinal Other/Comment: Hemorrhoid - Genitourinary/Gynecological Hx Genitourinary Disorders: No - Psychiatric Hx Bipolar Disorder: Yes Hx Substance Use: No - Past Surgical History Past Surgical History: No Previous - Anesthesia Hx Anesthesia: No Hx Anesthesia Reactions: No Hx Malignant Hyperthermia: No - Suicidal Assessment Feels Threatened In Home Enviroment: No Family/Social History - Physician Review Nursing Documentation Reviewed: Yes Family/Social History: Unknown Family HX Smoking Status: Never Smoked Hx Alcohol Use: No Hx Substance Use: No Hx Substance Use Treatment: No Allergies/Home Meds Allergies/Adverse Reactions: Allergies No Known Allergies Allergy (Verified 11/02/18 08:14) Home Medications: Home Meds Medication Instructions Recorded Confirmed ARIPiprazole [Abilify] 5 mg PO DAILY 10/31/18 11/04/18 Benztropine [Benztropine Mesylate] 1 mg PO BID 10/31/18 11/04/18 Divalproex [Depakote DR(*BID*)] 500 mg PO HS 10/31/18 11/04/18 Ergocalciferol (Vitamin D2) 50,000 unit PO QWK 10/31/18 11/04/18 [Vitamin D2] Fenofibrate Nanocrystallized 160 mg PO DAILY 10/31/18 11/04/18 [Triglide] Linaclotide [Linzess] 72 mcg PO DAILY 10/31/18 11/04/18 Simvastatin 10 mg PO DAILY 10/31/18 11/04/18 Review of Systems - Physician Review All systems were reviewed & negative as marked: Yes - Review of Systems Constitutional: Normal. absent: Fevers Eyes: Normal ENT: Normal Respiratory: SOB. absent: Cough Cardiovascular: Chest Pain Gastrointestinal: Normal. absent: Abdominal Pain, Diarrhea, Nausea, Vomiting Genitourinary Male: Normal. absent: Dysuria, Frequency, Hematuria, Urinary Output Changes Musculoskeletal: Normal. absent: Back Pain, Neck Pain Skin: Normal. absent: Rash Neurological: Normal. absent: Headache, Dizziness Endocrine: Normal Hemo/Lymphatic: Normal Psychiatric: Normal Physical Exam Vital Signs Reviewed: Yes Temperature: Afebrile Blood Pressure: Normal Pulse: Tachycardic Respiratory Rate: Normal Appearance: Positive for: Well-Appearing, Non-Toxic, Comfortable Pain Distress: None Mental Status: Positive for: Alert and Oriented X 3 - Systems Exam Head: Present: Atraumatic, Normocephalic Pupils: Present: PERRL Extroacular Muscles: Present: EOMI Conjunctiva: Present: Normal Mouth: Present: Moist Mucous Membranes Neck: Present: Normal Range of Motion Respiratory/Chest: Present: Clear to Auscultation, Good Air Exchange. No: Respiratory Distress, Accessory Muscle Use Cardiovascular: Present: Normal S1, S2, Tachycardic. No: Murmurs Abdomen: No: Tenderness, Distention, Peritoneal Signs Back: Present: Normal Inspection Upper Extremity: Present: Normal Inspection. No: Cyanosis, Edema Lower Extremity: Present: Normal Inspection. No: Edema Neurological: Present: GCS=15, CN II-XII Intact, Speech Normal Skin: Present: Warm, Dry, Normal Color. No: Rashes Psychiatric: Present: Alert, Oriented x 3, Normal Insight, Normal Concentration Medical Decision Making ED Course and Treatment: 11/21/18 04:27 Impression: 43 year old male complaining of mid-sternal chest pain and some shortness of breath. Plan: -- EKG -- Chest X-ray -- Labs, cardiac enzymes, D-dimer -- Reassess and disposition Prior Visits: Notes and results from previous visits were reviewed. Progress Notes: Reviewed EKG, sinus tachycardia at 109 bpm. Non-specific ST/T wave changes. 11/21/18 05:58 Chest X-ray reviewed, show no acute processes. 11/21/18 06:[address] Gregory, who is aware and agrees with plan. Accepts pt in to her service. Pt will go to remote telemetry observation for chest pain. Requests Dr. Quintana on consult. - EKG Interpretation Interpreted by ED Physician: Yes Type: 12 lead EKG - Scribe Statement The provider has reviewed the documentation as recorded by the Natalyibcheyenne Smith Provider Scribe Attestation: All medical record entries made by the Scribe were at my direction and personally dictated by me. I have reviewed the chart and agree that the record accurately reflects my personal performance of the history, physical exam, medical decision making, and the department course for this patient. I have also personally directed, reviewed, and agree with the discharge instructions and disposition. Disposition/Present on Arrival - Present on Arrival Any Indicators Present on Arrival: No History of DVT/PE: No History of Uncontrolled Diabetes: No Urinary Catheter: No History of Decub. Ulcer: No History Surgical Site Infection Following: None - Disposition Have Diagnosis and Disposition been Completed?: Yes Diagnosis: Chest pain Disposition: HOSPITALIZED Disposition Time: 06:17 Condition: STABLE
[2018-11-21 04:53] LABS: HEMOGLOBIN 13.1 g/dL (14.0-18.0); MEAN CORPUSCULAR HEMOGLOBIN 31.2 pg (25.0-35.0); MEAN CORPUSCULAR HGB CONC 33.2 g/dl (31.0-37.0); MEAN PLATELET VOLUME 10.3 fl (7.0-11.0); RBC 4.2 10^6/uL (3.5-6.1); RED CELL DISTRIBUTION WIDTH 13.1 % (11.5-14.5); WHITE BLOOD COUNT 6.9 10^3/uL (4.5-11.0)
[2018-11-21 05:15] LABS: TROPONIN I < 0.01 ng/mL
[2018-11-21 05:26] LABS: ALB/GLOB RATIO 1.4 (1.1-1.8); ALBUMIN 4.5 g/dL (3.0-4.8); ALT/SGPT 86 U/L (7-56); AST/SGOT 59 U/L (17-59); BLOOD UREA NITROGEN 10 mg/dL (7-21); CALCIUM 9.3 mg/dL (8.4-10.5); GFR NON-AFRICAN AMERICAN > 60
[2018-11-21 05:36] LABS: D DIMER < 200 ng/mlDDU (0-243)
[2018-11-21 05:37] LABS: INR 1.02; PROTHROMBIN TIME 11.6 SECONDS (9.4-12.5)
[2018-11-21 05:38] LABS: PARTIAL THROMBOPLASTIN TIME 28.8 Seconds (25.1-36.5)
--- NOTE | 2018-11-21 09:54 | RAD ---
Date of service: 11/21/2018 HISTORY: chest pain COMPARISON: 08/27/2018 FINDINGS: LUNGS: No active pulmonary disease. PLEURA: No significant pleural effusion identified, no pneumothorax apparent. CARDIOVASCULAR: No aortic atherosclerotic calcification present. Normal cardiac size. No pulmonary vascular congestion. OSSEOUS STRUCTURES: No significant abnormalities. VISUALIZED UPPER ABDOMEN: Normal. OTHER FINDINGS: None. IMPRESSION: No active disease.
[2018-11-21] MEDS ORDERED: Ergocalciferol 50,000 Intl Units Cap PO SCH (10:00)
[2018-11-21] MEDS: LINACLOTIDE 72 MCG PO SCH (11:05)
[2018-11-21 12:46] LABS: TROPONIN I < 0.01 ng/mL
[2018-11-21] MEDS: Pantoprazole 40 mg EC Tab PO SCH (12:52)
[2018-11-21 14:10] VITALS: BMI 30.7
[2018-11-21] MEDS ORDERED: Pneumococcal 23-Valent Vaccine IM ONE (14:11)
[2018-11-21] MEDS ORDERED: Influenza Vaccine 60 mcg/0.5 mL SYR (4YR UP) IM ONE (14:11)
[2018-11-21] MEDS: Naproxen 550 mg Tab PO SCH (17:13)
--- NOTE | 2018-11-21 17:28 | CON ---
DATE: 11/21/2018 HISTORY OF PRESENT ILLNESS: The patient is a 43-year-old male who has history of high cholesterol, high triglycerides and developmental delay. He also has history of hypertension. Admitted with wake up from the sleep with sharp chest pain in the mid chest without any radiation. No nausea, vomiting, hematemesis, melena. No diaphoresis. Denies any prior history of chest pain or exacerbation. The patient has been also under psychiatric treatment. The patient says that chest pain is sharp, was lasted more than half an hour. The patient now sitting comfortable in bed without any chest pain, shortness of breath, or palpitation. PAST MEDICAL HISTORY: The patient has known case of bipolar high cholesterol, high triglyceride, noncompliant, history of proctitis in the past. PERSONAL HISTORY: No history of smoking or drinking. ALLERGIES: THERE IS NO HISTORY OF ANY ALLERGY TO ANY MEDICATION. FAMILY HISTORY: Not significant. HOME MEDICATION: Include Simvastatin 10 mg daily, Linzess 72 mcg p.o. daily, triglyceride 160 mg p.o. daily, Depakote 500 mg p.o. at bedtime, benztropine 1 mg p.o. twice a day, Abilify 5 mg p.o. daily. REVIEW OF SYSTEMS: All other system reviewed. Positives mentioned in the history, otherwise negative. PHYSICAL EXAMINATION: VITAL SIGNS: Blood pressure 125/83, respirations 20, pulse 96, temperature 98.1. HEENT: Head is normocephalic. Eye pupil normal. Conjunctiva normal. Nose and throat normal. NECK: JVP low. Carotid equal. THORAX: AP diameter normal. The patient has tenderness in the midsternal area where he had chest pain. CARDIOVASCULAR: S1, S2. No rub. ABDOMEN: Soft, nontender, no organomegaly, bowel sound normal. EXTREMITIES: No clubbing. No cyanosis. LABORATORY DATA: WBC , hemoglobin 13.1, hematocrit 39.5, platelets 260. Sodium 144, potassium 3.8, BUN 10, creatinine 0.9, AST 59, ALT 86, troponin less than 0.01, total protein 7.8, albumin 4.5. Chest x-ray no acute disease. EKG shows regular sinus rhythm. Actually sinus tachycardia rate 109 per minute. DIAGNOSES: 1. Chest pain, atypicals most likely musculoskeletal. 2. High cholesterol. 3. High triglyceride. 4. History of hypertension. 5. Bipolar developmental delay. PLAN: We will put patient on Naprosyn 550 mg twice a day along with Protonix 40 mg daily. The patient is already getting aspirin 81 mg daily, Depakote 500 mg p.o. at bedtime, Linaclotide 72 mcg p.o. daily, atorvastatin 10 mg daily, fenofibrate 145 mg p.o. daily. We will do echo and we will do IV Lasix and stress test and we will do Lipid profile and TSH. I will follow with you. Brie Orona MD
[2018-11-21 19:46] VITALS: RESP 20
[2018-11-21 20:41] LABS: TROPONIN I < 0.01 ng/mL
[2018-11-21] MEDS ORDERED: Divalproex 500 mg DR(BID formulation) PO SCH (22:00)
--- NOTE | 2018-11-22 02:15 | HP ---
DATE OF EXAM: 11/21/2018 The patient was seen and examined at the bedside on 11/21/2018. CHIEF COMPLAINT: Chest pain. HISTORY OF PRESENT ILLNESS: Mr. Marcelo Huynh is a 43-year-old male who came to the emergency room, has history of bipolar disorder, came in complaining of chest pain. The patient states that he woke up with midsternal chest pain at 12 a.m. and is associated with shortness of breath. The patient denies any fevers, chills. No nausea, vomiting or diarrhea. No hematuria or hematochezia. No backache or neck pain. No headaches. No dizziness. The patient is very poor historian. PAST MEDICAL HISTORY: Bipolar schizophrenia, hemorrhoids with constipation, history of multiple hospitalizations. FAMILY HISTORY: Unknown. HABITS: , never smoked. No drugs. No ethanol. ALLERGIC: THE PATIENT IS NOT ALLERGIC WITH ANY MEDICATIONS. HOME MEDICATIONS: Abilify, benztropine, Depakote, vitamin D, fenofibrate, Linzess, simvastatin. REVIEW OF SYSTEMS: The patient was seen and examined at the bedside in his room. No fevers. No chills. No hematuria or hematochezia, . No chest pain. No headaches. No shortness of breath. No rash. PHYSICAL EXAMINATION: VITAL SIGNS: Blood pressure 129/86, temperature 98.9, pulse 94, respirations 20, pulse oxygenation 100%. HEENT: Head is normocephalic, atraumatic. Eyes, PERRLA. Extraocular muscles are intact. Conjunctivae clear. Nose patent. NECK: Supple. No carotid bruits. No JVD or thyromegaly. CHEST: Bilaterally symmetrical. HEART: S1 and S2 are positive. LUNGS: Clear to auscultation. ABDOMEN: Soft, bowel sounds present. No organomegaly. EXTREMITIES: No edema. No cyanosis. NEUROLOGIC: The patient is awake, alert. Moving all 4 extremities. No focal deficits. LABORATORY DATA: White blood cells 6.9, hemoglobin 13.1, hematocrit 39.5, platelets 260. Sodium 144, potassium 3.8, BUN 10, creatinine 0.9, glucose 120. AST 86, troponin less than 0.01 x3. ASSESSMENT AND PLAN: Mr. Marcelo Huynh is a 43-year-old male with anemia, hyperchloremia, hyperglycemia, abnormal liver function test, valproic acid level is 23. History of bipolar schizophrenia, constipation, hemorrhoids came with chest pain. Cardiac enzymes x3 done, history of hypercholesterolemia, hypertriglyceridemia, noncompliant, history of bronchitis in the past. According to Cardiology, chest pain is atypical most likely musculoskeletal, history of hypertension. Dr. Orona put the patient on naproxen, Protonix. The patient is already on aspirin, Depakote, linezolid, atorvastatin, fenofibrate. Dr. Orona is suggesting echo and IV Lexiscan stress test. We will repeat labs. Gastrointestinal and deep venous thrombosis prophylaxis. We will follow up. Cinthia Gregory MD
[2018-11-22 07:08] LABS: IRON 148 ug/dL (45-180)
[2018-11-22 07:18] LABS: % IRON SATURATION 39 % (20-55); TOTAL IRON BINDING CAPACITY 383 ug/dL (261-462)
[2018-11-22 07:24] LABS: GLUCOSE,FASTING 108 mg/dL (65-110); HDL CHOLESTEROL 21 mg/dL (29-60)
[2018-11-22 07:35] LABS: LDL CHOLESTEROL 152 mg/dL (0-129)
[2018-11-22 08:14] VITALS: TEMP 97.1; O2SAT 98
[2018-11-22] MEDS ORDERED: Aminophylline 25 mg/ml Inj ONE (10:52)
--- NOTE | 2018-11-22 11:15 | CARD ---
APPROVED REPORT Date of service: 11/21/2018 EKG Measurement Heart [id number] <Conclusion> Sinus tachycardia Nonspecific ST abnormality Abnormal ECG
[2018-11-22] MEDS ORDERED: Enoxaparin 40 mg Syringe SC SCH (11:30)
[2018-11-22 11:45] VITALS: BP 120/70; PULSE 94
--- NOTE | 2018-11-22 12:30 | CARD ---
APPROVED REPORT Date of service: 11/22/2018 EXAM: Two-dimensional and M-mode echocardiogram with Doppler and color Doppler. INDICATION Hypertension/HCVD Chest Pain 2D DIMENSIONS Left Atrium (2D)3.8 (1.6-4.0cm)IVSd1.6 (0.7-1.1cm) LVDd4.6 (3.9-5.9cm)PWd1.3 (0.7-1.1cm) LVDs2.9 (2.5-4.0cm)FS (%) 36.9 % LVEF (%)66.9 (>50%) M-Mode DIMENSIONS Aortic Root2.80 (2.2-3.7cm)Aortic Cusp Exc.1.70 (1.5-2.0cm) Aortic Valve AoV Peak Ftmvquxj578.0cm/Laurence Peak GR.8mmHg Mitral Valve MV E Vbizrqqo94.9cm/sMV A Cwoarrid88.2cm/sE/A ratio1.3 TDI E/Lateral E'0.0E/Medial E'0.0 Tricuspid Valve TR Peak Nnyylmum084ik/sRAP [id number] Peak Gr.9mmHg [id number] LEFT VENTRICLE The left ventricle is normal size. There is mild concentric left ventricular hypertrophy. The left ventricular function is normal.EF-60-65% There is normal LV segmental wall motion. The left ventricular diastolic function is normal. No left ventricle thrombus noted on this study. There is no ventricular septal defect visualized. There is no left ventricular aneurysm. There is no mass noted in the left ventricle. RIGHT VENTRICLE The right ventricle is normal size. There is normal right ventricular wall thickness. The right ventricular systolic function is normal. ATRIA The left atrium size is normal. The right atrium size is normal. The interatrial septum is intact with no evidence for an atrial septal defect. AORTIC VALVE The aortic valve is thickened but opens well. No aortic regurgitation is present. There is no aortic valvular stenosis. There is no aortic valvular vegetation. MITRAL VALVE The mitral valve is thickened but opens well. Mitral regurgitation is trace. There is no mitral valve stenosis. There is no evidence of mitral valve prolapse. TRICUSPID VALVE The tricuspid valve leaflets are thickened , but open well. There is trace tricuspid regurgitation.RVSP-19 mmof Hg. There is no tricuspid valve stenosis. There is no tricuspid valve prolapse or vegetation. PULMONIC VALVE The pulmonary valve is normal in structure. There is no pulmonic valvular regurgitation. There is no pulmonic valvular stenosis. GREAT VESSELS The aortic root is normal in size. The ascending aorta is normal in size. The pulmonary artery is normal. The IVC is normal in size and collapses >50% with inspiration. PERICARDIAL EFFUSION There is no pleural effusion. There is a trace pericardial effusion. <Conclusion> Normal Chamber size. EF_60-65% Mitral regurgitation is trace. There is trace tricuspid regurgitation.RVSP-19 mmof Hg. There is a trace pericardial effusion.
[2018-11-22] MEDS: Naproxen 550 mg Tab PO SCH (13:03)
[2018-11-22] MEDS: LINACLOTIDE 72 MCG PO SCH (13:04)
[2018-11-22] MEDS: Pantoprazole 40 mg EC Tab PO SCH (13:05)
[2018-11-22 13:59] LABS: FOLATE 11.6 ng/mL
--- NOTE | 2018-11-22 16:10 | PN ---
DATE: 11/22/2018 REASON FOR CONSULT: Followup, cardiac evaluation and chest pain. The patient complained of retrosternal chest pain sometimes, which increases on taking a deep breath sometime; without breath, he feels inside. SUBJECTIVE: He denied any chest pain, nausea, or shortness of breath, denied any palpitation. PHYSICAL EXAMINATION: GENERAL: Not in apparent distress. VITAL SIGNS: Temperature afebrile, heart rate 70, blood pressure 129/85. HEENT: PERRLA. Extraocular muscles are intact. NECK: Supple. No carotid bruits or thyromegaly. CHEST: Clear to auscultation. HEART: S1 and S2, regular. ABDOMEN: Soft. EXTREMITIES: Clubbing and cyanosis negative. LABORATORY DATA: Blood workup as follows: WBC 6.9, hemoglobin 13, hematocrit 39.5, and platelet count 260. Chemistry showed sodium 144, potassium 3.8, chloride 108, carbon dioxide 28, anion gap of 12, BUN 10, creatinine 0.9. Triglyceride 199, cholesterol 200, LDL 152, HDL 21, and TSH 1.39. Troponin 0.01 x3 negative. IMPRESSION: A 43-year-old male with past medical history significant for hyperlipidemia,on Psych medications, history of proctitis, history of bipolar disorder, history of possibly some mental development disorder questionable,Lives in shelter admitted with atypical chest pain, so far troponin remains negative. The patient is on nonsteroidal antiinflammatory drug, feels a lot better, is scheduled a stress test and echo today. Further recommendation depend on the hospital course. The patient is on Lipitor 10 mg, was on simvastatin 10, but LDL high so we will put 40 of Lipitor from today. We will do a stress test. Further recommend after stress test. Further recommendation after the stress test and echo. We will put some DVT prophylaxis because the patient is bedridden. Thank you Dr. Gregory for providing us opportunity in taking care of your patient, Marcelo Huynh. We will follow with you. Brie Quintana MD [facility]
--- NOTE | 2018-11-22 22:53 | CARD ---
APPROVED REPORT Date of service: 11/22/2018 Protocol: LEXISCAN Test Type: Lexiscan Sestamibi Stress Test Attending Physician: Dr. Brie Quintana Referring Physician: Dr. Cinthia Gregory Test Indications: Chest Pain, HTN, high cholesterol Height:5 ft 6 in Weight:190lbs Medications: Tylenol,Abilify,Lipitor, Cogentin, Depakote , Drbrieol, Fenofibrate, Naproxen,Linzess, Aspirin Medical History: 43 year old male with a history of HTN, high cholesterol, chest pain Target HR: 178 bpm Resting ECG: NSR T inversion in lead III Resting Heart Rate: 94 bpm Resting Blood Pressure: 120/70mmHg Submaximum (85%): 151 bpm PROCEDURE Pharmacologic stress testing was performed using 0.4mg per 5ml of regadenoson given intravenously over 7-10 seconds. Reversal agent aminophyline 100 mg, given intravenously for Dyspnea. POST EXERCISE Reason for Termination: Protocol completed Target HR: No Max HR: 85 bpm 60% of Maximum Predicted HR: 178 bpm Exercise duration: 00:30 min:sec, 0 Stage Exercise capacity: 1.0METs Max Blood Pressure: 140/80mmHg Blood Pressure response to exercise: normal resting BP - appropriate response Heart Rate response to exercise: appropriate Chest Pain: No, none Angina index: 0 Arrhythmia: No, none ST Change: No, none from base line Deviation: 0 mm INTERPRETATION Stress EKG Conclusion: Negative IV Lexiscan for Ischemia and chest pain, Nuclear scan to follow. Signed by Brie Quintana Electronically Approved: 11/22/2018 11:51:53 EXAM: Myocardial Perfusion REST/STRESS Stress Test Type: Pharmacologic Imaging Protocol The imaging protocol used to acquire images was Rest Tc-99m/stress Tc-99m 1 day Rest Spect myocardial perfusion imaging was performed in supine position 50 minutes following the injection of 10.9 mCi of Tc-99 Myoview. At peak stress, the patient was injected intravenously with 30.9mCi of Tc-99 tetrofosmin after an infusion time of 0 minutes and 10 seconds. Gated Stress Spect was performed 65 minutes after intravenous Tc-99 Myoview injection. The images were gated to evaluate regional wall motion and calculate ventricular ejection fraction.Images were reconstructed using backfilter projection method in short horizontal and verticle long axis. Spect slices were generated. LV Perfusion The quality of the study is good. The left ventricle is normal in size. The right ventricle is unremarkable. The lung uptake is within normal limits. The distribution of tracer reveals normal uptake pattern throughout the LV myocardium on the stress study. The rest myocardial perfusion study shows no significant change. Wall Motion Wall motion study shows good contractility of the left ventricle. LVEF = 71%. Conclusion 1. Normal SPECT myocardial perfusion study. 2. Normal gated wall motion of the left ventricle.
== END 2018-11-22 16:00 | disposition home or self-care (01) ==
LOC: ED 04:11 → ERH 06:17 → 3RNO 10:54
PROVIDERS: ADMIT Internal Medicine; ATTEND Internal Medicine
DX: R07.89 Other chest pain (principal); I10 Essential (primary) hypertension; D64.9 Anemia, unspecified; E87.8 Other disorders of electrolyte and fluid balance, not elsewhere classified; E78.1 Pure hyperglyceridemia; F31.9 Bipolar disorder, unspecified; F20.9 Schizophrenia, unspecified; E78.00 Pure hypercholesterolemia, unspecified; E78.5 Hyperlipidemia, unspecified; Z74.01 Bed confinement status; Z79.82 Long term (current) use of aspirin; Z79.899 Other long term (current) drug therapy; Z91.19 Patient's noncompliance with other medical treatment and regimen
CPT/HCPCS: 36415; 71045; 78452; 80053; 80061; 80164; 82550; 82607; 82746; 82947; 83036; 83540; 83550; 83615; 84443; 84484; 85027; 85378; 85610; 85730; 93005; 93017; 93306; 99285; A9502; G0378; J0280; J1650; J2785

== ENCOUNTER 2018-11-29 16:48 | Emergency (ER) | payer MEDICARE, MEDICAID ==
[2018-11-29 17:21] VITALS: RESP 18; TEMP 98.6; BMI 29.5
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
[2018-11-29 18:59] VITALS: BP 120/83; PULSE 94; O2SAT 97
== END 2018-11-29 18:11 | disposition home or self-care (01) ==
LOC: ED 16:48
DX: M54.17 Radiculopathy, lumbosacral region (principal)

== ENCOUNTER 2018-12-04 21:53 | Emergency (ER) | payer MEDICARE, MEDICAID ==
[2018-12-04 21:54] VITALS: BMI 30.7
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
[2018-12-04 22:42] VITALS: RESP 18
[2018-12-04 22:52] LABS: HEMOGLOBIN 12.6 g/dL (14.0-18.0); MEAN CELL VOLUME 92.6 fl (80.0-105.0); MEAN CORPUSCULAR HGB CONC 34.5 g/dl (31.0-37.0); MEAN PLATELET VOLUME 10.6 fl (7.0-11.0); RBC 3.94 10^6/uL (3.5-6.1); RED CELL DISTRIBUTION WIDTH 12.8 % (11.5-14.5); WHITE BLOOD COUNT 6.1 10^3/uL (4.5-11.0)
[2018-12-05 00:11] LABS: ALB/GLOB RATIO 1.3 (1.1-1.8); ALBUMIN 4.6 g/dL (3.0-4.8); ALT/SGPT 81 U/L (7-56); AST/SGOT 50 U/L (17-59); BLOOD UREA NITROGEN 14 mg/dL (7-21); CALCIUM 9.2 mg/dL (8.4-10.5); GFR NON-AFRICAN AMERICAN > 60
[2018-12-05 01:10] LABS: BARBITURATES, UR NEGATIVE (NEGATIVE); BENZODIAZEPINES, UR NEGATIVE (NEGATIVE); OPIATES, UR NEGATIVE (NEGATIVE); PHENCYCLIDINE, UR NEGATIVE (NEGATIVE)
[2018-12-05 02:30] VITALS: BP 122/68; PULSE 92; TEMP 98.2; O2SAT 100
--- NOTE | 2018-12-05 07:52 | RAD ---
Date of service: 12/04/2018 HISTORY: medical clearance COMPARISON: Portable chest 11/21/2018. FINDINGS: LUNGS: Somewhat diminished inspiratory volume. Limited patchy atelectasis or infiltrate seen the left base laterally. PLEURA: No significant pleural effusion identified, no pneumothorax apparent. CARDIOVASCULAR: No aortic atherosclerotic calcification present. Normal cardiac size. No pulmonary vascular congestion. OSSEOUS STRUCTURES: No significant abnormalities. VISUALIZED UPPER ABDOMEN: Normal. OTHER FINDINGS: None. IMPRESSION: Limited patchy atelectasis or infiltrate lateral left base. This could be a function of atelectasis given diminished inspiratory volume. Clinically correlate further.
--- NOTE | 2018-12-05 09:59 | CARD ---
APPROVED REPORT Date of service: 12/04/2018 EKG Measurement Heart [id number] <Conclusion> Normal sinus rhythm Normal ECG
== END 2018-12-05 02:29 | disposition home or self-care (01) ==
LOC: ED 21:53
DX: F31.9 Bipolar disorder, unspecified (principal); I10 Essential (primary) hypertension; E78.5 Hyperlipidemia, unspecified
CPT/HCPCS: 71045; 80053; 85027; 90791; 93005; 99282; G0480

== ENCOUNTER 2018-12-09 11:41 | Emergency (ER) | payer MEDICARE, MEDICAID ==
[2018-12-09 11:41] VITALS: BMI 30.7
[2018-12-09 12:03] VITALS: TEMP 98.5
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
[2018-12-09 12:51] VITALS: RESP 18; O2SAT 98
[2018-12-09 13:54] VITALS: BP 135/76; PULSE 86
--- NOTE | 2018-12-09 14:03 | RAD ---
Date of service: 12/09/2018 PROCEDURE: Right Knee Radiographs. HISTORY: Knee pain s/p trauma COMPARISON: None. FINDINGS: BONES: Normal. No fracture. JOINTS: Normal. No osteoarthritis. JOINT EFFUSION: Suspect trace joint effusion. OTHER FINDINGS: None. IMPRESSION: No evidence of acute displaced fracture nor dislocation. Suspect trace joint effusion.
== END 2018-12-09 13:58 | disposition home or self-care (01) ==
LOC: ED 11:41
DX: S83.91XA Sprain of unspecified site of right knee, initial encounter (principal); W19.XXXA Unspecified fall, initial encounter; Y93.41 Activity, dancing; I10 Essential (primary) hypertension
CPT/HCPCS: 73560; 96372; 99284; J1885

== ENCOUNTER 2019-01-01 20:34 | Emergency (ER) | payer MEDICARE, MEDICAID ==
[2019-01-01 20:36] VITALS: BMI 30.7
[2019-01-01 22:45] VITALS: BP 124/81; RESP 18; O2SAT 96
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
[2019-01-01] MEDS ORDERED: Bacitracin 500 Units/gm Oint Foilpak UD TOP ONE (22:59)
[2019-01-01 23:06] VITALS: PULSE 92; TEMP 97.9
== END 2019-01-01 23:10 | disposition home or self-care (01) ==
LOC: ED 20:34
DX: S30.812A Abrasion of penis, initial encounter (principal); X58.XXXA Exposure to other specified factors, initial encounter; E78.5 Hyperlipidemia, unspecified; I10 Essential (primary) hypertension

== ENCOUNTER 2019-01-08 21:28 | Emergency (ER) | payer MEDICARE, MEDICAID ==
[2019-01-08 21:30] VITALS: BMI 30.7
[2019-01-08 22:16] VITALS: BP 146/86; PULSE 98; RESP 18; TEMP 98.3; O2SAT 97
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
[2019-01-08 22:44] LABS: URINE APPEARANCE CLEAR (CLEAR); URINE BILIRUBIN NEGATIVE (NEGATIVE); URINE BLOOD NEGATIVE (NEGATIVE); URINE COLOR LIGHT YELLOW (YELLOW); URINE GLUCOSE (UA) NEGATIVE (NEGATIVE); URINE LEUKOCYTE ESTERASE NEGATIVE Leu/uL (NEGATIVE); URINE PROTEIN NEGATIVE mg/dL (<30 mg/dL); URINE UROBILINOGEN 0.2 E.U./dL (<1 E.U./dL)
== END 2019-01-09 00:28 | disposition home or self-care (01) ==
LOC: ED 21:28
DX: N47.8 Other disorders of prepuce (principal)

== ENCOUNTER 2019-01-14 13:22 | Emergency (ER) | payer MEDICARE, MEDICAID | END 2019-01-14 15:35 | disposition home or self-care (01) | LOC: ED 13:22 ==

== ENCOUNTER 2019-02-04 13:56 | Inpatient (IN) | payer MEDICARE, MEDICAID ==
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
[2019-02-04 15:08] LABS: BASO # 0.03 K/mm3 (0.0-2.0); BASO % 0.4 % (0.0-3.0); EOS # 0.1 (0.0-0.7); EOS % 1.3 % (1.5-5.0); HEMOGLOBIN 13.1 g/dL (14.0-18.0); LYMPH # 2.1 (1.2-3.4); LYMPH % 30.1 % (22.0-35.0); MEAN CELL VOLUME 93.2 fl (80.0-105.0); MEAN CORPUSCULAR HEMOGLOBIN 30.8 pg (25.0-35.0); MEAN CORPUSCULAR HGB CONC 33.1 g/dl (31.0-37.0); MEAN PLATELET VOLUME 10.8 fl (7.0-11.0); MONO # 0.5 (0.1-0.6); MONO % 7.2 % (1.0-6.0); RBC 4.25 10^6/uL (3.5-6.1); RED CELL DISTRIBUTION WIDTH 12.6 % (11.5-14.5); WHITE BLOOD COUNT 7.1 10^3/uL (4.5-11.0)
[2019-02-04 15:17] LABS: ALB/GLOB RATIO 1.3 (1.1-1.8); ALBUMIN 4.8 g/dL (3.0-4.8); ALT/SGPT 40 U/L (7-56); AST/SGOT 43 U/L (17-59); BLOOD UREA NITROGEN 16 mg/dL (7-21); CALCIUM 9.6 mg/dL (8.4-10.5); GFR NON-AFRICAN AMERICAN > 60
[2019-02-04] MEDS ORDERED: Iohexol 350 MG/100 ML VIAL ONE (16:13)
--- NOTE | 2019-02-04 16:44 | CT ---
Date of service: 02/04/2019 PROCEDURE: CT Pelvis with contrast HISTORY: perianal pain, r/o abscess COMPARISON: CT 06/30/2018 TECHNIQUE: Contiguous axial images of the pelvis with contrast. Coronal and sagittal reformats generated. Contrast dose: 100 cc of Omni 350 Radiation dose: Total exam DLP = 944.26 mGy-cm. This CT exam was performed using one or more of the following dose reduction techniques: Automated exposure control, adjustment of the mA and/or kV according to patient size, and/or use of iterative reconstruction technique. FINDINGS: BLADDER: Unremarkable. No mass. REPRODUCTIVE ORGANS: Unremarkable. VISUALIZED BOWEL: Unremarkable. PERITONEUM: Unremarkable, as visualized. No free fluid. No free air. LYMPH NODES: Unremarkable. No enlarged lymph nodes. VASCULATURE: No aortic atherosclerotic calcification or mural plaque present. BONES: No fracture or focal lesion. OTHER FINDINGS: None. IMPRESSION: Unremarkable contrast enhanced CT of the pelvis. No evidence of perirectal or perianal abscess
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
--- NOTE | 2019-02-04 20:29 | CP.PCM.PCO ---
Physician Communication Note - Physician Communication Note Physician Communication Note: Chr constipation/Unresponsive anal fistula-may need OR
[2019-02-04 20:49] VITALS: BMI 26.6
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
[2019-02-04] MEDS: POLYETHYLENE GLYCOL 3350 17 GM/Dose PACKET PO SCH (22:56)
[2019-02-04 22:59] LABS: IRON 112 ug/dL (45-180)
[2019-02-04 23:08] LABS: % IRON SATURATION 25 % (20-55); TOTAL IRON BINDING CAPACITY 450 ug/dL (261-462)
[2019-02-04] MEDS: Dibucaine 1% Oint(1 oz) TOP SCH (23:20)
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
[2019-02-05] MEDS: Dibucaine 1% Oint(1 oz) TOP SCH ×6 (04:00→23:58)
[2019-02-05 07:52] LABS: MEAN CELL VOLUME 93.8 fl (80.0-105.0); MEAN CORPUSCULAR HEMOGLOBIN 30.9 pg (25.0-35.0); MEAN CORPUSCULAR HGB CONC 32.9 g/dl (31.0-37.0); MEAN PLATELET VOLUME 10.6 fl (7.0-11.0); RBC 4.21 10^6/uL (3.5-6.1); RED CELL DISTRIBUTION WIDTH 12.8 % (11.5-14.5); WHITE BLOOD COUNT 4.2 10^3/uL (4.5-11.0)
[2019-02-05 08:26] LABS: BLOOD UREA NITROGEN 19 mg/dL (7-21); CALCIUM 9.4 mg/dL (8.4-10.5); GFR NON-AFRICAN AMERICAN > 60
[2019-02-05] MEDS: POLYETHYLENE GLYCOL 3350 17 GM/Dose PACKET PO SCH ×2 (09:00→17:22)
[2019-02-05] MEDS: Magnesium Citrate Oral SOL (300 ml) PO SCH (09:00)
[2019-02-05 14:33] LABS: FOLATE 9.3 ng/mL
[2019-02-05] MEDS: Divalproex 500 mg DR(BID formulation) PO SCH (22:20)
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
[2019-02-06] MEDS: Dibucaine 1% Oint(1 oz) TOP SCH ×3 (04:00→20:06)
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
--- NOTE | 2019-02-06 06:48 | CP.PCM.PCO ---
Physician Communication Note - Physician Communication Note Physician Communication Note: Fissure better=needs colonoscopy
--- NOTE | 2019-02-06 07:20 | CP.PCM.PN ---
Subjective - Date & Time of Evaluation Date of Evaluation: 02/06/19 Time of Evaluation: 07:20 Objective - Vital Signs/Intake and Output Vital Signs (last 24 hours): Temp Pulse Resp BP Pulse Ox 97.5 F L 74 19 128/80 96 02/05/19 06:00 02/05/19 06:00 02/05/19 06:00 02/05/19 06:00 02/05/19 06:00 - Medications Medications: Current Medications Aripiprazole (Abilify) 5 mg PO DAILY [facility] Last Admin: 02/05/19 09:01 Dose: 5 mg Atorvastatin Calcium (Lipitor) 10 mg PO DIN [facility] Last Admin: 02/05/19 17:22 Dose: 10 mg Benztropine Mesylate (Cogentin) 0.5 mg PO BID [facility] Last Admin: 02/05/19 17:22 Dose: 0.5 mg Dibucaine (Nupercainal 1%) 0 oz TOP Q4 [facility] Last Admin: 02/06/19 04:00 Dose: Not Given Divalproex Sodium (Depakote Dr(*Bid*)) 500 mg PO HS [facility] Last Admin: 02/05/19 22:20 Dose: 500 mg Ergocalciferol (Drisdol 50,000 Intl Units Cap) 1 cap PO QWK [facility] Fenofibrate (Tricor) 145 mg PO DAILY [facility] Last Admin: 02/05/19 09:01 Dose: 145 mg Magnesium Citrate (Citrate Of Mag) 300 ml PO DAILY [facility] Last Admin: 02/05/19 09:00 Dose: 300 ml Polyethylene Glycol (Miralax) 17 gm PO BID [facility] Last Admin: 02/05/19 17:22 Dose: 17 gm - Labs Labs: 02/05/19 07:00 02/05/19 07:00
[2019-02-06 08:29] LABS: BASO # 0.03 K/mm3 (0.0-2.0); BASO % 0.6 % (0.0-3.0); EOS # 0.1 (0.0-0.7); EOS % 2.4 % (1.5-5.0); HEMOGLOBIN 13.8 g/dL (14.0-18.0); LYMPH # 1.7 (1.2-3.4); LYMPH % 33.3 % (22.0-35.0); MEAN CELL VOLUME 94.5 fl (80.0-105.0); MEAN CORPUSCULAR HEMOGLOBIN 31.7 pg (25.0-35.0); MEAN CORPUSCULAR HGB CONC 33.5 g/dl (31.0-37.0); MEAN PLATELET VOLUME 10.5 fl (7.0-11.0); MONO # 0.4 (0.1-0.6); MONO % 7.3 % (1.0-6.0); RBC 4.36 10^6/uL (3.5-6.1); RED CELL DISTRIBUTION WIDTH 12.6 % (11.5-14.5); WHITE BLOOD COUNT 5.1 10^3/uL (4.5-11.0)
[2019-02-06 08:32] LABS: INR 1.24
[2019-02-06 08:42] LABS: ALB/GLOB RATIO 1.1 (1.1-1.8); ALBUMIN 4.7 g/dL (3.0-4.8); ALT/SGPT 42 U/L (7-56); AST/SGOT 37 U/L (17-59); BLOOD UREA NITROGEN 14 mg/dL (7-21); CALCIUM 9.7 mg/dL (8.4-10.5); GFR NON-AFRICAN AMERICAN > 60
--- NOTE | 2019-02-06 09:20 | CP.PCM.PN ---
Subjective - Date & Time of Evaluation Date of Evaluation: 02/06/19 Time of Evaluation: 09:17 - Subjective Subjective: Yolette Han PGY1 Progress Note for Dr. Espino Pt was examined at bedside this morning. He denies rectal pain, fever, chill, n ausea, vomiting, or abdominal pain. No acute events overnight. Objective - Vital Signs/Intake and Output Vital Signs (last 24 hours): Temp Pulse Resp BP Pulse Ox 97.5 F L 71 20 148/92 H 96 02/06/19 08:42 02/06/19 08:42 02/06/19 08:42 02/06/19 08:42 02/06/19 08:42 - Medications Medications: Current Medications Aripiprazole (Abilify) 5 mg PO DAILY [facility] Last Admin: 02/05/19 09:01 Dose: 5 mg Atorvastatin Calcium (Lipitor) 10 mg PO DIN [facility] Last Admin: 02/05/19 17:22 Dose: 10 mg Benztropine Mesylate (Cogentin) 0.5 mg PO BID [facility] Last Admin: 02/05/19 17:22 Dose: 0.5 mg Dibucaine (Nupercainal 1%) 0 oz TOP Q4 [facility] Last Admin: 02/06/19 04:00 Dose: Not Given Divalproex Sodium (Depakote Dr(*Bid*)) 500 mg PO HS [facility] Last Admin: 02/05/19 22:20 Dose: 500 mg Ergocalciferol (Drisdol 50,000 Intl Units Cap) 1 cap PO QWK [facility] Fenofibrate (Tricor) 145 mg PO DAILY [facility] Last Admin: 02/05/19 09:01 Dose: 145 mg Magnesium Citrate (Citrate Of Mag) 300 ml PO DAILY [facility] Last Admin: 02/05/19 09:00 Dose: 300 ml Polyethylene Glycol (Miralax) 17 gm PO BID [facility] Last Admin: 02/05/19 17:22 Dose: 17 gm - Labs Labs: 02/06/19 08:00 02/06/19 08:00 PT 14.0 SECONDS (9.4-12.5) H 02/06/19 08:00 INR 1.24 02/06/19 08:00 - Constitutional Appears: Well, No Acute Distress - Head Exam Head Exam: ATRAUMATIC, NORMOCEPHALIC - Eye Exam Eye Exam: EOMI, Normal appearance - Respiratory Exam Respiratory Exam: NORMAL BREATHING PATTERN. absent: Respiratory Distress - GI/Abdominal Exam GI & Abdominal Exam: absent: Distended, Guarding - Extremities Exam Extremities Exam: Normal Inspection - Neurological Exam Neurological Exam: Alert, Awake, Oriented x3 - Psychiatric Exam Psychiatric exam: Normal Affect, Normal Mood - Skin Skin Exam: Normal Color Assessment and Plan - Assessment and Plan (Free Text) Assessment: 43yo M w chronic constipation admitted for anal fissure refractory to conservative treatment Plan: - for flex sig today, f/u report - continue High fiber diet and stool softeners - Dibucain topical to rectum for pain control - sitz baths prn - consider OR if still refractory to treatment Further recs as per Dr. Espino
[2019-02-06] MEDS ORDERED: Propofol 10 mg/ml Inj (20 ML) ONE (17:23)
[2019-02-06] MEDS ORDERED: Sodium Chloride 0.9% 1,000 ML IV SCH (17:45)
[2019-02-06] MEDS: POLYETHYLENE GLYCOL 3350 17 GM/Dose PACKET PO SCH (18:40)
--- NOTE | 2019-02-06 20:36 | PN ---
DATE: 02/06/2019 SUBJECTIVE: The patient is a 43-year-old male. The patient is seen and examined at the bedside on 02/06/2019. No fever. No chills. No hematuria. No hematochezia. No headache. No dizziness. No chest pain. No palpitation. No more rectal bleeding. The patient is n.p.o. for procedure. PHYSICAL EXAMINATION: VITAL SIGNS: Temperature 97.5, pulse 71, blood pressure 140/98, respiratory rate 20. HEENT: Head: Normocephalic and atraumatic. Eyes: PERRLA. Extraocular muscles intact. Conjunctivae clear. Nose patent. Mucous membranes moist. NECK: Supple. No carotid bruit. No JVD or thyromegaly. CHEST: Bilaterally symmetrical. HEART: S1 and S2 positive. LUNGS: Clear to auscultation. ABDOMEN: Soft. Bowel sounds present. No organomegaly. EXTREMITIES: No edema. No cyanosis. NEUROLOGICAL: The patient is awake, alert. Moving all four extremities. No focal deficits. MEDICATIONS: Abilify, magnesium citrate, Cogentin, Depakote, Isordil, Lipitor, MiraLax, TriCor, LABORATORY DATA: White blood cells 5.1, hemoglobin 13.8, hematocrit 41.2, platelets 311. Sodium 142, potassium 4.3, BUN 14, creatinine 1.1, glucose 104, calcium 8.8. ASSESSMENT AND PLAN: Mr. Marcelo Huynh is a 43-year-old male with leukopenia, anemia, hyperchloremia, with history of gastrointestinal bleeding. Pelvic CAT done. Seen by Gastroenterology and Surgery. According to Gastroenterology, to be likely consideration. The patient has normocytic anemia. According to Dr. Sin, the patient will get benefit from iron studies and anemia workup. He will do anemia workup. Surgery and Gastroenterology are on the case. History of schizophrenia, bipolar. The patient lives in detention. Getting workup as outpatient is a problem. Meanwhile, continue the present treatment. Appreciated Dr. Nick Espino' communication report. According to him, in the future better need colonoscopy. Repeat labs. We will follow up. Cinthia Gregory MD [facility] # [id number] [place]
[2019-02-06] MEDS: Divalproex 500 mg DR(BID formulation) PO SCH (21:15)
[2019-02-07] MEDS: Dibucaine 1% Oint(1 oz) TOP SCH ×4 (00:10→11:28)
--- NOTE | 2019-02-07 07:02 | CP.PCM.PN ---
Subjective - Date & Time of Evaluation Date of Evaluation: 02/07/19 Time of Evaluation: 07:01 - Subjective Subjective: Stacey Martin, PGY2, GI Progress Note for Dr Sin: Patient seen and examined at bedside. No acute events overnight. Last BM was overnight, liquidy. Denies abdominal pain, nausea, vomiting, rectal pain, sob, chest pain. Objective - Vital Signs/Intake and Output Vital Signs (last 24 hours): Temp Pulse Resp BP Pulse Ox 98 F 82 18 120/70 95 02/06/19 18:32 02/06/19 18:32 02/06/19 18:32 02/06/19 18:32 02/06/19 18:32 Intake and Output: 02/07/19 02/07/19 06:59 18:59 Intake Total 600 Balance 600 - Medications Medications: Current Medications Aripiprazole (Abilify) 5 mg PO DAILY [facility] Last Admin: 02/05/19 09:01 Dose: 5 mg Atorvastatin Calcium (Lipitor) 10 mg PO DIN [facility] Last Admin: 02/05/19 17:22 Dose: 10 mg Benztropine Mesylate (Cogentin) 0.5 mg PO BID [facility] Last Admin: 02/05/19 17:22 Dose: 0.5 mg Dibucaine (Nupercainal 1%) 0 oz TOP Q4 [facility] Last Admin: 02/07/19 04:47 Dose: Not Given Divalproex Sodium (Depakote Dr(*Bid*)) 500 mg PO HS [facility] Last Admin: 02/06/19 21:15 Dose: 500 mg Ergocalciferol (Drisdol 50,000 Intl Units Cap) 1 cap PO QWK [facility] Fenofibrate (Tricor) 145 mg PO DAILY [facility] Last Admin: 02/05/19 09:01 Dose: 145 mg Magnesium Citrate (Citrate Of Mag) 300 ml PO DAILY [facility] Last Admin: 02/05/19 09:00 Dose: 300 ml Polyethylene Glycol (Miralax) 17 gm PO BID [facility] Last Admin: 02/06/19 18:40 Dose: Not Given - Labs Labs: 02/06/19 08:00 02/06/19 08:00 PT 14.0 SECONDS (9.4-12.5) H 02/06/19 08:00 INR 1.24 02/06/19 08:00 - Constitutional Appears: Non-toxic, No Acute Distress - Head Exam Head Exam: ATRAUMATIC, NORMOCEPHALIC - Eye Exam Eye Exam: EOMI, PERRL. absent: Conjunctival injection, Nystagmus, Scleral icterus Pupil Exam: NORMAL ACCOMODATION, PERRL. absent: Miosis, Mydriatic - ENT Exam ENT Exam: Mucous Membranes Moist - Neck Exam Neck Exam: Full ROM - Respiratory Exam Respiratory Exam: Clear to Ausculation Bilateral, NORMAL BREATHING PATTERN. absent: Accessory Muscle Use, Wheezes, Respiratory Distress - Cardiovascular Exam Cardiovascular Exam: RRR, +S1, +S2. absent: Murmur - GI/Abdominal Exam GI & Abdominal Exam: Soft, Normal Bowel Sounds. absent: Guarding, Rigid, Tenderness, Mass, Organomegaly, Rebound - Extremities Exam Extremities Exam: Full ROM, Normal Inspection. absent: Pedal Edema - Back Exam Back Exam: NORMAL INSPECTION - Neurological Exam Neurological Exam: Alert, Awake, Oriented x3 - Psychiatric Exam Psychiatric exam: Normal Affect, Normal Mood - Skin Skin Exam: Dry, Normal Color, Warm Assessment and Plan - Assessment and Plan (Free Text) Assessment: # Rectal pain # Rectal bleeding, resolved # Bipolar disorder # HTN # HLD # Schizhophrenia - Flexible sigmoidoscopy shows rectum and sigmoid colon normal. Stool in rectum/sigmoid colon. Internal hemorroids. - Continue with Dibucaine topical, sitz baths prn - advance diet as tolerated - further recs per Dr Sin. Case seen and discussed with Dr Sin.
[2019-02-07 07:45] LABS: HEMOGLOBIN 14.5 g/dL (14.0-18.0); MEAN CELL VOLUME 94.6 fl (80.0-105.0); MEAN CORPUSCULAR HEMOGLOBIN 31.6 pg (25.0-35.0); MEAN CORPUSCULAR HGB CONC 33.4 g/dl (31.0-37.0); RBC 4.59 10^6/uL (3.5-6.1); RED CELL DISTRIBUTION WIDTH 12.6 % (11.5-14.5); WHITE BLOOD COUNT 6.5 10^3/uL (4.5-11.0)
[2019-02-07 07:49] LABS: BLOOD UREA NITROGEN 15 mg/dL (7-21); CALCIUM 9.7 mg/dL (8.4-10.5); GFR NON-AFRICAN AMERICAN > 60
[2019-02-07 08:47] VITALS: BP 123/80; PULSE 76; RESP 20; TEMP 97.3; O2SAT 97
[2019-02-07] MEDS: POLYETHYLENE GLYCOL 3350 17 GM/Dose PACKET PO SCH (09:02)
[2019-02-07] MEDS: Magnesium Citrate Oral SOL (300 ml) PO SCH (09:02)
--- NOTE | 2019-02-07 09:13 | CP.PCM.PN ---
Subjective - Date & Time of Evaluation Date of Evaluation: 02/07/19 Time of Evaluation: 09:11 - Subjective Subjective: Yolette Han PGY1 Progress Note for Dr. Espino Pt was examined at bedside this morning. He has no complaints today. He denies rectal pain, fever, chills, abdominal pain, nausea, or vomiting. He reports being able to tolerate liquid diet. He denies any bowel movements today. Objective - Vital Signs/Intake and Output Vital Signs (last 24 hours): Temp Pulse Resp BP Pulse Ox 97.3 F L 76 20 123/80 97 02/07/19 08:47 02/07/19 08:47 02/07/19 08:47 02/07/19 08:47 02/07/19 08:47 Intake and Output: 02/07/19 02/07/19 06:59 18:59 Intake Total 600 Balance 600 - Medications Medications: Current Medications Aripiprazole (Abilify) 5 mg PO DAILY [facility] Last Admin: 02/07/19 09:03 Dose: 5 mg Atorvastatin Calcium (Lipitor) 10 mg PO DIN [facility] Last Admin: 02/05/19 17:22 Dose: 10 mg Benztropine Mesylate (Cogentin) 0.5 mg PO BID [facility] Last Admin: 02/07/19 09:03 Dose: 0.5 mg Dibucaine (Nupercainal 1%) 0 oz TOP Q4 [facility] Last Admin: 02/07/19 08:01 Dose: Not Given Divalproex Sodium (Depakote Dr(*Bid*)) 500 mg PO HS [facility] Last Admin: 02/06/19 21:15 Dose: 500 mg Ergocalciferol (Drisdol 50,000 Intl Units Cap) 1 cap PO QWK [facility] Fenofibrate (Tricor) 145 mg PO DAILY [facility] Last Admin: 02/07/19 09:03 Dose: 145 mg Magnesium Citrate (Citrate Of Mag) 300 ml PO DAILY [facility] Last Admin: 02/07/19 09:02 Dose: 300 ml Polyethylene Glycol (Miralax) 17 gm PO BID [facility] Last Admin: 02/07/19 09:02 Dose: 17 gm - Labs Labs: 02/07/19 07:00 02/07/19 07:00 PT 14.0 SECONDS (9.4-12.5) H 02/06/19 08:00 INR 1.24 02/06/19 08:00 - Constitutional Appears: Well, No Acute Distress - Head Exam Head Exam: ATRAUMATIC, NORMOCEPHALIC - Eye Exam Eye Exam: EOMI, Normal appearance - ENT Exam ENT Exam: Mucous Membranes Moist - Respiratory Exam Respiratory Exam: NORMAL BREATHING PATTERN. absent: Respiratory Distress - GI/Abdominal Exam GI & Abdominal Exam: Soft, Normal Bowel Sounds. absent: Distended, Tenderness - Extremities Exam Extremities Exam: Normal Inspection - Neurological Exam Neurological Exam: Alert, Awake, Oriented x3 - Psychiatric Exam Psychiatric exam: Flat Affect - Skin Skin Exam: Normal Color Assessment and Plan - Assessment and Plan (Free Text) Assessment: 43yo M w chronic constipation admitted for anal fissure refractory to conservative treatment Plan: - s/p flex sig showing grade 1 internal hemorrhoids, no anal fissure - continue High fiber diet and stool softeners - Dibucain topical to rectum for pain control - sitz baths prn - d/c from surgical standpoint - f/u in office Further recs as per Dr. Espino
--- NOTE | 2019-02-07 12:12 | CP.PCM.PCO ---
Physician Communication Note - Physician Communication Note Physician Communication Note: OK D/C with [id number] f/u
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
[2019-02-11] MEDS ORDERED: Ergocalciferol 50,000 Intl Units Cap PO SCH (10:00)
== END 2019-02-07 14:36 | disposition home or self-care (01) | DRG 395 ==
LOC: ED 13:56 → ERH 17:36 → 3RSO 18:34 → OBSVTOIN 02-06 15:31
PROVIDERS: ADMIT Internal Medicine; ATTEND Internal Medicine
PROC: 0DJD8ZZ Inspection of Lower Intestinal Tract, Via Natural or Artificial Opening Endoscopic (ICD-10-PCS; principal; 2019-02-06 15:30)
DX: K64.0 First degree hemorrhoids (principal); D64.9 Anemia, unspecified; D72.819 Decreased white blood cell count, unspecified; E78.00 Pure hypercholesterolemia, unspecified; E78.5 Hyperlipidemia, unspecified; E87.8 Other disorders of electrolyte and fluid balance, not elsewhere classified; F20.9 Schizophrenia, unspecified; F31.9 Bipolar disorder, unspecified; I10 Essential (primary) hypertension; K59.09 Other constipation; Z86.010 Personal history of colon polyps; Z91.410 Personal history of adult physical and sexual abuse

== ENCOUNTER 2019-02-25 16:26 | Observation (INO) | payer MEDICARE, MEDICAID ==
[2019-02-25] MEDS ORDERED: Sodium Chloride 0.9% 500 ML IV STA (16:54)
[2019-02-25 17:02] VITALS: RESP 18
[2019-02-25 17:14] LABS: BASO # 0.03 K/mm3 (0.0-2.0); BASO % 0.4 % (0.0-3.0); EOS # 0.2 (0.0-0.7); EOS % 2.8 % (1.5-5.0); HEMOGLOBIN 12.7 g/dL (14.0-18.0); LYMPH # 2.3 (1.2-3.4); LYMPH % 30.8 % (22.0-35.0); MEAN CELL VOLUME 93.9 fl (80.0-105.0); MEAN CORPUSCULAR HEMOGLOBIN 31.2 pg (25.0-35.0); MEAN CORPUSCULAR HGB CONC 33.2 g/dl (31.0-37.0); MEAN PLATELET VOLUME 10.6 fl (7.0-11.0); MONO # 0.6 (0.1-0.6); MONO % 7.5 % (1.0-6.0); RBC 4.07 10^6/uL (3.5-6.1); RED CELL DISTRIBUTION WIDTH 12.7 % (11.5-14.5); WHITE BLOOD COUNT 7.5 10^3/uL (4.5-11.0)
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
[2019-02-25 17:36] LABS: ALB/GLOB RATIO 1.3 (1.1-1.8); ALBUMIN 4.1 g/dL (3.0-4.8); ALT/SGPT 50 U/L (7-56); AST/SGOT 51 U/L (17-59); BLOOD UREA NITROGEN 11 mg/dL (7-21); CALCIUM 8.9 mg/dL (8.4-10.5); GFR NON-AFRICAN AMERICAN > 60
[2019-02-25] MEDS ORDERED: Iohexol 350 MG/100 ML VIAL ONE (18:53)
[2019-02-25 19:16] LABS: BARBITURATES, UR NEGATIVE (NEGATIVE); BENZODIAZEPINES, UR NEGATIVE (NEGATIVE); OPIATES, UR NEGATIVE (NEGATIVE); PHENCYCLIDINE, UR NEGATIVE (NEGATIVE)
--- NOTE | 2019-02-25 19:43 | ED PDOC ---
Physical Exam Vital Signs Reviewed: Yes Vital Signs Temp Pulse Resp BP Pulse Ox 02/25/19 18:46 98 F 02/25/19 16:31 98.3 F 103 H 18 148/89 98 Temperature: Afebrile Blood Pressure: Normal Pulse: Tachycardic Respiratory Rate: Normal Appearance: Positive for: Well-Appearing Mental Status: Positive for: Alert and Oriented X 3 Finger Stick Blood Glucose: 145 Medical Decision Making ED Course and Treatment: 02/25/19 19:03 Patient case endorsed to me by Dr. Bauman. Patient is a 43 year old male presenting to the emergency department for a syncopal event. Currently pending a CT angiogram and venous doppler study prior to final disposition. Patient remains stable and asymptomatic. 02/25/19 19:48 EXAM: CTA Chest with Intravenous Contrast for Pulmonary Embolism CLINICAL HISTORY: Pulmonary embolism TECHNIQUE: Axial CTA images of the chest with intravenous contrast using a pulmonary embolism protocol. Reconstructed images were created and reviewed. 536.57 mGy-cm CONTRAST: With; OMNI 350 100 ml was administered without incident. COMPARISON: None provided. FINDINGS: PULMONARY ARTERIES No evidence of central or segmental pulmonary embolism is seen. AORTA There is no evidence for aneurysm or dissection of the thoracic aorta. LUNGS There is no consolidation or atelectasis. Mild scarring at the lung bases. PLEURAL SPACES No pneumothorax evident. No pleural effusions. HEART Normal heart size. No significant pericardial effusion. LYMPH NODES No lymphadenopathy is evident. BONES No focal osseous abnormality or acute fracture. UPPER ABDOMEN Approximately 2.5 x 2.1 cm left adrenal gland adenoma. Fatty infiltration of the liver. IMPRESSION: Unremarkable pulmonary embolism protocol CTA of the chest. Fatty infiltration of the liver. Left adrenal gland adenoma. Electronically signed on Feb 25, 2019 7:23:45 PM EDT by: James Carpio M.D., Certified by [facility], Diagnostic Radiology 02/25/19 20:[address] Gregory who accepts patient to her service and requests Dr. Cuenca for consult. - Lab Interpretations Lab Results: D-Dimer, Quantitative 437 ng/mlDDU (0-243) H 02/25/19 17:00 Total Bilirubin 0.4 mg/dL (0.2-1.3) 02/25/19 17:00 AST 51 U/L (17-59) 02/25/19 17:00 ALT 50 U/L (7-56) 02/25/19 17:00 Alkaline Phosphatase 42 U/L (38-126) 02/25/19 17:00 Total Protein 7.3 g/dL (5.8-8.3) 02/25/19 17:00 Albumin 4.1 g/dL (3.0-4.8) 02/25/19 17:00 Globulin 3.2 gm/dL 02/25/19 17:00 Albumin/Globulin Ratio 1.3 (1.1-1.8) 02/25/19 17:00 - RAD Interpretation Radiology Orders: 02/25/19 16:53 HEAD W/O CONTRAST [CT] Stat 02/25/19 18:25 ANGIO CHEST PE PROTOCOL [CT] Stat 02/25/19 19:01 DUPLEX LOWER EXTRM VEIN BILAT [US] Stat - Medication Orders Current Medication Orders: Discontinued Medications Sodium Chloride (Sodium Chloride 0.9%) 500 mls @ 999 mls/hr IV .Q31M STA Stop: 02/25/19 17:24 Last Admin: 02/25/19 17:17 Dose: 999 mls/hr eMAR Start Stop Document 02/25/19 17:17 GMI (Rec: 02/25/19 17:18 GMI [id number]) Intravenous Solution Start Date 02/25/19 Start Time 17:17 End Date 02/25/19 End time 17:50 Total Infusion Time 33 - Scribe Statement The provider has reviewed the documentation as recorded by the [place]oacano Batista All medical record entries made by the [place] were at my direction and personally dictated by me. I have reviewed the chart and agree that the record accurately reflects my personal performance of the history, physical exam, medical decision making, and the department course for this patient. I have also personally directed, reviewed, and agree with the discharge instructions and disposition. Disposition/Present on Arrival - Present on Arrival Any Indicators Present on Arrival: No History of DVT/PE: No History of Uncontrolled Diabetes: No Urinary Catheter: No History of Decub. Ulcer: No History Surgical Site Infection Following: None - Disposition Have Diagnosis and Disposition been Completed?: Yes Diagnosis: Syncope Disposition: HOSPITALIZED Disposition Time: 20:25 Patient Problems: Current Active Problems Problem Status Onset Syncope Acute Condition: GUARDED
[2019-02-25 23:07] VITALS: BMI 36.2
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
--- NOTE | 2019-02-26 08:36 | CT ---
Date of service: 02/25/2019 PROCEDURE: CT Chest with contrast (Pulmonary Angiogram) HISTORY: pulmonary embolism COMPARISON: None available. TECHNIQUE: Axial computed tomography images were obtained of the chest in the pulmonary arterial phase of enhancement. Coronal and sagittal reformatted images were created and reviewed. Intravenous contrast dose: 100 cc of Omni 350 Radiation dose: Total exam DLP = 536.58 mGy-cm. This CT exam was performed using one or more of the following dose reduction techniques: Automated exposure control, adjustment of the mA and/or kV according to patient size, and/or use of iterative reconstruction technique. FINDINGS: PULMONARY ARTERIES: Unremarkable. No pulmonary embolism. AORTA: No acute findings. No thoracic aortic aneurysm. No aortic atherosclerotic calcification or mural plaque present. LUNGS: Unremarkable. No nodule, mass or pulmonary consolidation. PLEURAL SPACES: Unremarkable. No effusion or pneumothorax. HEART: Unremarkable. No cardiomegaly. No significant pericardial effusion. LYMPH NODES: No lymphadenopathy. BONES, CHEST WALL: Unremarkable. No fracture or destructive lesion OTHER FINDINGS: There is severe fatty infiltration of the liver. There is a 2 cm adenoma in the left adrenal gland. This is unchanged. IMPRESSION: No evidence of pulmonary embolus. Severe fatty infiltration of the liver. Left adrenal adenoma
--- NOTE | 2019-02-26 09:15 | CARD ---
APPROVED REPORT Date of service: 02/25/2019 EKG Measurement Heart [id number] [id number] <Conclusion> Sinus tachycardia Otherwise normal ECG
[2019-02-26] MEDS: POLYETHYLENE GLYCOL 3350 17 GM/Dose PACKET PO SCH ×2 (09:27→17:12)
[2019-02-26] MEDS: Docusate-Senna 50 mg-8.6 mg Tab PO SCH ×2 (09:27→17:12)
[2019-02-26] MEDS ORDERED: Albuterol-Ipratrop 3 mg / 0.5 (3 ml) UD IH PRN (13:14)
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
--- NOTE | 2019-02-26 14:55 | CON ---
DATE: 02/26/2019 NEUROLOGY CONSULT CHIEF COMPLAINT: Syncope. HISTORY OF PRESENT ILLNESS: This is 43-year-old man with history of hypertension, hyperlipidemia, history of depression and behavioral disorder, on Depakote and Abilify, who came in after having the syncopal event in which he lost consciousness for few seconds. He said prior to that, he has been having several days of diarrhea. No palpitations. No seizure-like events. No history of trauma to the brain. CAT scan of the head showed no acute intracranial abnormalities. Currently, his neuro exam is nonfocal except for a flat affect. FAMILY HISTORY: Noncontributory. SOCIAL HISTORY: No illicit drug abuse, smoking, or ETOH abuse. REVIEW OF SYSTEMS: A 14-point review of systems is as per the HPI. MEDICATIONS: Reviewed by nurses' reconciliation sheet. PHYSICAL EXAMINATION GENERAL: The patient is sitting up in bed, in no acute distress. VITAL SIGNS: Temperature 98.8, pulse rate is 74, blood pressure 111/74, respiratory rate 18, oxygen saturation 96% on room air. HEENT: Atraumatic and normocephalic. PERRLA. Extraocular muscles intact. NECK: Supple. No JVD. No adenopathy noted. LUNGS: Clear to auscultation. No adventitious sounds. HEART: S1 and S2, normal rate and rhythm. No murmur, rubs, or gallops. ABDOMEN: Soft, nontender, nondistended. Bowel sounds present. EXTREMITIES: No clubbing. No cyanosis. Peripheral pulses are 2+ felt bilaterally. NEUROLOGIC: The patient has flat affect, alert and oriented to person, place, month and year. Speech is fluent without any errors. Cranial nerves II through XII are intact. Motor: Moves all extremities equally. Toes are downgoing bilaterally. Sensory: Light touch, pinprick, proprioception and vibration are intact. DTRs are 2+ throughout. Coordination: [id number] is intact. No dysmetria noted. Gait is deferred for now. LABORATORY DATA: Sodium is 142, potassium 3.9, chloride 108, carbon dioxide 26, BUN 11, creatinine 0.8, and random glucose 116. IMPRESSION: Syncope is most likely vasovagal in nature seizure like. At this time, we recommend: RECOMMENDATIONS 1. IV fluid hydration. 2. Psychiatric evaluation in regards to his Abilify, which can result in frequent falls as well as evaluate Depakote for his behavior. 3. Orthostatic vital signs and continue with current and present medical management. Thank you for this consult. Hermilo Cuenca MD
[2019-02-26] MEDS ORDERED: Pantoprazole 40 mg EC Tab PO SCH (22:00)
[2019-02-26] MEDS ORDERED: Divalproex 500 mg DR(BID formulation) PO SCH (22:00)
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
[2019-02-27 07:29] LABS: BASO # 0.03 K/mm3 (0.0-2.0); BASO % 0.3 % (0.0-3.0); EOS # 0.3 (0.0-0.7); EOS % 3.2 % (1.5-5.0); HEMOGLOBIN 14.1 g/dL (14.0-18.0); LYMPH # 2.5 (1.2-3.4); LYMPH % 28.4 % (22.0-35.0); MEAN CELL VOLUME 93.4 fl (80.0-105.0); MEAN CORPUSCULAR HEMOGLOBIN 30.9 pg (25.0-35.0); MEAN PLATELET VOLUME 10.9 fl (7.0-11.0); MONO # 0.5 (0.1-0.6); MONO % 5.2 % (1.0-6.0); RBC 4.57 10^6/uL (3.5-6.1); RED CELL DISTRIBUTION WIDTH 12.8 % (11.5-14.5); WHITE BLOOD COUNT 8.7 10^3/uL (4.5-11.0)
[2019-02-27 08:11] LABS: IRON 108 ug/dL (45-180)
[2019-02-27 08:25] LABS: % IRON SATURATION 26 % (20-55); TOTAL IRON BINDING CAPACITY 415 ug/dL (261-462)
[2019-02-27 08:31] LABS: ALB/GLOB RATIO 1.3 (1.1-1.8); ALBUMIN 4.7 g/dL (3.0-4.8); ALT/SGPT 55 U/L (7-56); AST/SGOT 40 U/L (17-59); BLOOD UREA NITROGEN 12 mg/dL (7-21); CALCIUM 9.4 mg/dL (8.4-10.5); GFR NON-AFRICAN AMERICAN > 60; HDL CHOLESTEROL 24 mg/dL (29-60); LIPASE 118 U/L (23-300)
[2019-02-27 08:38] LABS: LDL CHOLESTEROL 151 mg/dL (0-129)
[2019-02-27 08:46] VITALS: TEMP 98.3; O2SAT 96
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
[2019-02-27] MEDS: Docusate-Senna 50 mg-8.6 mg Tab PO SCH (09:27)
[2019-02-27] MEDS: POLYETHYLENE GLYCOL 3350 17 GM/Dose PACKET PO SCH (09:27)
--- NOTE | 2019-02-27 09:49 | US ---
HISTORY: Leg pain and swelling. Evaluate for DVT PHYSICIAN(S): Minesh Rowell MD. TECHNIQUE: Duplex sonography and color-flow Doppler with graded compression were used to evaluate the deep venous systems of both lower extremities. FINDINGS: The visualized deep venous systems of both lower extremities are sonographically normal and compressible. Normal wave forms and augmentation are seen. There is no sonographic evidence for deep venous thrombosis in the visualized segments of both lower extremities. IMPRESSION: No sonographic evidence for deep venous thrombosis in the visualized segments of both lower extremities.
[2019-02-27 13:10] VITALS: BP 140/100; PULSE 79
[2019-02-27 13:10] LABS: FOLATE 9.9 ng/mL
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
--- NOTE | 2019-02-27 17:11 | PN ---
DATE: 02/27/2019 PULMONARY PROGRESS NOTE REFERRING PHYSICIAN: Dr. Cinthia Gregory. SUBJECTIVE: The patient is seen sitting at bedside. No acute distress. No overnight events reported. The patient had echocardiogram and stress test done this morning. The patient reports that he feels well today. No headache, rhinitis, dizziness, shortness of breath, cough, chest pain, abdominal pain, nausea, vomiting, diarrhea, leg pain, or leg swelling reported. OBJECTIVE: GENERAL: No acute distress. VITAL SIGNS: Blood pressure 142/84, pulse 79, oxygen saturation 96% on room air, and temperature 98.3. HEENT: Moist mucous membranes. Crowded airway. Mallampati score of 4. NECK: Supple. No JVD. Short and thick. RESPIRATORY: Fair airflow bilaterally. CARDIOVASCULAR: S1 and S2. ABDOMEN: Soft and nontender. No distention. No organomegaly. EXTREMITIES: No bilateral lower extremity edema. NEUROLOGIC: Awake, alert, and verbal. Following commands. MEDICATIONS: Reviewed. DuoNeb 3 mL inhalation every 6 hours p.r.n., Abilify 5 mg p.o. daily, Lipitor 40 mg at dinner, Cogentin 0.5 mg twice a day, Depakote 500 mg at bedtime, ergocalciferol 50,000 units weekly, Tricor 145 mg daily, Protonix 40 mg at bedtime, MiraLax 17 g once a day, and Senokot with docusate sodium once. LABORATORY DATA: Reviewed. WBC 8.7, RBC 4.57, hemoglobin 13.1, hematocrit 42.7, and platelets 317. Sodium 143, potassium 3.9, chloride 107, carbon dioxide 25, anion gap 15, BUN 12, creatinine 0.9, GFR greater than 60, random glucose 95, calcium 9.4, phosphorus 3.6, magnesium 2.0, iron 108, TIBC 415, percent saturation 26, total bilirubin 0.5, AST 40, ALT 55, alkaline phosphatase 52, total protein 8.3, albumin 4.7, globulin 3.7 and albumin-globulin ratio 1.3. Triglycerides 157, cholesterol 194, LDL cholesterol 151, HDL cholesterol 24 and lipase 118. Vitamin B12 of 298, folate 9.9, and TSH 1.98. IMPRESSION AND PLAN: Syncope, anemia, hypertension, and history of hemorrhoids. Echocardiogram and stress test pending; we will review when available. Fall precautions, deep venous thrombosis prophylaxis, and gastric prophylaxis. Suspect, the patient may have sleep apnea. Recommend, the patient have sleep study as outpatient. Recommend physical therapy evaluation before discharge to ensure stability with ambulation. Orthostatic vital signs were done. Lying patient blood pressure was 123/79, sitting 136/84 and standing 145/88, showing no orthostatic hypertension. This patient was seen and examined with Dr. Munoz. Discussed assessment and plan as described above. This patient was seen and examined with Ran Callahan, nurse practitioner. Discussed assessment and plan as described above. Thank you for this consult. We will follow with you. Ran Callahan APN Brie Munoz MD [facility]
--- NOTE | 2019-02-27 17:48 | CARD ---
APPROVED REPORT Date of service: 02/27/2019 EXAM: Two-dimensional and M-mode echocardiogram with Doppler and color Doppler. INDICATION Chest Pain 2D DIMENSIONS Left Atrium (2D)3.6 (1.6-4.0cm)IVSd1.2 (0.7-1.1cm) LVDd4.6 (3.9-5.9cm)PWd1.2 (0.7-1.1cm) LVDs2.8 (2.5-4.0cm)FS (%) 38.3 % LVEF (%)68.6 (>50%) M-Mode DIMENSIONS Aortic Root2.80 (2.2-3.7cm)Aortic Cusp Exc.1.90 (1.5-2.0cm) Aortic Valve AoV Peak Uavhhuvs208.0cm/Laurence Peak GR.5mmHg Mitral Valve MV E Fckxlkms36.2cm/sMV A Aehdodrk06.9cm/sE/A ratio1.5 TDI E/Lateral E'0.0E/Medial E'0.0 Tricuspid Valve TR Peak [id number]/sRAP [id number] Peak Gr.19mmHg [id number] LEFT VENTRICLE The left ventricle is normal size. There is mild concentric left ventricular hypertrophy. The left ventricular function is normal.EF-65-70% There is normal LV segmental wall motion. The left ventricular diastolic function is normal. No left ventricle thrombus noted on this study. There is no ventricular septal defect visualized. There is no left ventricular aneurysm. There is no mass noted in the left ventricle. RIGHT VENTRICLE The right ventricle is normal size. There is normal right ventricular wall thickness. The right ventricular systolic function is normal. ATRIA The left atrium size is normal. The right atrium size is normal. The interatrial septum is intact with no evidence for an atrial septal defect. AORTIC VALVE The aortic valve is thickened but opens well. No aortic regurgitation is present. There is no aortic valvular stenosis. There is no aortic valvular vegetation. MITRAL VALVE The mitral valve is thickened but opens well. Mitral regurgitation is mild. There is no mitral valve stenosis. There is no evidence of mitral valve prolapse. TRICUSPID VALVE The tricuspid valve leaflets are thickened , but open well. There is mild tricuspid regurgitation.RVSP-29 mmof Hg. There is no tricuspid valve stenosis. There is no tricuspid valve prolapse or vegetation. PULMONIC VALVE The pulmonary valve is normal in structure. There is no pulmonic valvular regurgitation. There is no pulmonic valvular stenosis. GREAT VESSELS The aortic root is normal in size. The ascending aorta is normal in size. The pulmonary artery is normal. The IVC is normal in size and collapses >50% with inspiration. PERICARDIAL EFFUSION There is no pleural effusion. There is no pericardial effusion. <Conclusion> Normal chamber Size,.EF-65-70%. Mitral regurgitation is mild. There is mild tricuspid regurgitation.RVSP-29 mmof Hg. No vegetation or thrombus noted.
--- NOTE | 2019-02-27 22:48 | CARD ---
APPROVED REPORT Date of service: 02/27/2019 Protocol: VIKI Test Type: Sestamibi Stress Test Attending Physician: Dr. Brie Orona Referring Physician: Dr. Cinthia Gregory Test Indications: Syncope, R/O CAD Height:5 ft 6 in Weight:260lbs Medications: Albuterol, Abilify, Lipitor, Cogentin Depakote, Drisol, Tricor, Protonix, Miralax, Senokot Medical History: 43 year old male with ahistory of HTN, high cholesterol, Bipolar disorder Target HR: 178 bpm Resting ECG: RSR. Resting Heart Rate: 79 bpm Resting Blood Pressure: 140/100mmHg Submaximum (85%): 151 bpm POST EXERCISE Reason for Termination: Fatigue Target HR: No Max HR: 150 bpm 85% of Maximum Predicted HR: 178 bpm Exercise duration: 06:11 min:sec, 3 Stage Exercise capacity: 7.2METs Max Blood Pressure: 174/110mmHg Blood Pressure response to exercise: resting hypertension - appropriate response Heart Rate response to exercise: appropriate Chest Pain: No, none Angina index: 0 Arrhythmia: No, none ST Change: No, none Deviation: 0 mm TEST SUMMARY [id number]/.0. [id number]/100.0. EXERCISESTAGE 103:[id number]/108.0. EXERCISESTAGE 203:[id number]/110.0. EXERCISESTAGE 300:[id number]/110.0. [id number]/88.0. INTERPRETATION Stress EKG Conclusion: MYOVIEW NUCLEAR STRESS TEST STOPPED AFTER 6 MINUTES AND 11 SECONDS OF VIKI PROTOCOL DUE TO FATIGUE. PATIENT ACHIEVED 85% OF PREDICTED HEART RATE. NO CHEST PAIN. NO ST-T CHANGES. NUCLEAR SCAN REPORT PENDING. Signed by Brie Orona Electronically Approved: 02/27/2019 12:52:48 EXAM: Myocardial Perfusion REST/STRESS Stress Test Type: Exercise Treadmill Imaging Protocol The imaging protocol used to acquire images was Rest Tc-99m/stress Tc-99m 1 day Rest Spect myocardial perfusion imaging was performed in supine position 45 minutes following the injection of 10.3 mCi of Tc-99 Myoview. At peak stress, the patient was injected intravenously with 30.2mCi of Tc-99 tetrofosmin after an exercise time of 6 minutes and 11 seconds. Gated Stress Spect was performed 65 minutes after intravenous Tc-99 Myoview injection. The images were gated to evaluate regional wall motion and calculate ventricular ejection fraction.Images were reconstructed using backfilter projection method in short horizontal and verticle long axis. Spect slices were generated. LV Perfusion The quality of the study is suboptimal due to motion during the acquisition. The left ventricle is normal in size. The right ventricle is prominent. The lung uptake is normal. The distribution of tracer reveals an area of moderately decreased perfusion involving mdi to distal anterior wall on the stress study. The remainder of the LV myocardium is unremarkable. The rest myocardial perfusion study shows improvement of anterior defect. Wall Motion Gated wall motion study shows normal contractility of the left ventricle. LVEF = 74%. Conclusion 1. Suboptimal study due to motion during the acquisiton. 2. Equivocal SPECT myocardial perfusion study. 3. Reversible, anterior defect coule be due to ischemia versus motion artifact. 4. Normal gated wall motion of the left ventricle. 5. In ocmparison with the last study of 11/22/2018, the change appears new.
--- NOTE | 2019-02-28 11:16 | PN ---
DATE: 02/28/2019 REASON FOR DICTATION: The patient had a stress test done yesterday sestamibi stress test. The patient walked on the treadmill 6 minute and 11 second stage III. No EKG changes noted. The patient achieved 85% of predicted heart rate. No complaint of chest pain. No STT changes, but nuclear scan mentioned suboptimal study due to motion artifact because during , the patient was moving, so suggested equivocal stress myocardial perfusion study, irreversible anterior defect could be secondary to ischemia versus motion artifact, normal gated wall motion in compare to the last study 11/22/2018 the changes appeared new. RECOMMENDATION: Suggest cardiac catheterization, the patient is scheduled for cardiac catheterization 03/30/2019 at 07:30. We will try to reach the patient again, called on the patient's telephone no [phone]. We will followup. The patient is scheduled as mentioned on 03/30/2019. Brie Quintana MD
[2019-03-04] MEDS ORDERED: Ergocalciferol 50,000 Intl Units Cap PO SCH (10:00)
== END 2019-02-27 18:19 | disposition home or self-care (01) ==
LOC: ED 16:26 → ERH 20:23 → 3RNO 22:53
PROVIDERS: ADMIT Internal Medicine; ATTEND Internal Medicine
DX: R55 Syncope and collapse (principal); I10 Essential (primary) hypertension; E78.00 Pure hypercholesterolemia, unspecified; E11.9 Type 2 diabetes mellitus without complications; D35.02 Benign neoplasm of left adrenal gland; D64.9 Anemia, unspecified; E78.5 Hyperlipidemia, unspecified; F31.9 Bipolar disorder, unspecified; K76.0 Fatty (change of) liver, not elsewhere classified; R56.9 Unspecified convulsions; Z86.711 Personal history of pulmonary embolism; Z91.410 Personal history of adult physical and sexual abuse
CPT/HCPCS: 36415; 70450; 71275; 78452; 80053; 80061; 82550; 82607; 82746; 82948; 83036; 83540; 83550; 83690; 83735; 84100; 84443; 85025; 85027; 85378; 93005; 93017; 93306; 93970; 96360; 97161; 99285; A9502; G0378; G0480; G8978; G8979; G8980; J7040; Q9967

== ENCOUNTER 2019-03-19 21:00 | Emergency (ER) | payer MEDICARE, MEDICAID ==
[2019-03-19 21:01] VITALS: BMI 36.2
[2019-03-19 21:22] VITALS: BP 136/86; RESP 18; TEMP 98.7; O2SAT 95
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
[2019-03-19 21:52] VITALS: PULSE 89
== END 2019-03-19 21:59 | disposition home or self-care (01) ==
LOC: ED 21:00
DX: M72.2 Plantar fascial fibromatosis (principal)

== ENCOUNTER 2019-03-20 02:44 | Emergency (ER) | payer MEDICARE, MEDICAID ==
[2019-03-20 02:44] VITALS: BMI 36.2
[2019-03-20 02:53] VITALS: RESP 18; TEMP 97.8
[2019-03-20] MEDS ORDERED: Multivitamin (MVI) 10 ML, Thiamine 100 MG, Folic Acid 1 MG in Dextrose 5% In Water 1,00... IV ONE (02:55)
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
[2019-03-20 04:31] VITALS: O2SAT 95
[2019-03-20 05:53] VITALS: BP 139/80; PULSE 92
== END 2019-03-20 06:13 | disposition home or self-care (01) ==
LOC: ED 02:44
DX: F10.10 Alcohol abuse, uncomplicated (principal); Y90.2 Blood alcohol level of 40-59 mg/100 ml
CPT/HCPCS: 96374; 99285; G0480; J2765; J3411; J7070

== ENCOUNTER 2019-03-30 06:05 | Day surgery (SDC) | payer MEDICARE, MEDICAID ==
--- NOTE | 2019-03-30 00:37 | HP ---
DATE OF EXAM: 03/30/2019 REASON FOR ADMISSION: Left heart cath, possible angioplasty and abnormal stress test. BRIEF CLINICAL HISTORY: This is a 43-year-old male with past medical history significant for diabetes, hypertension, behavioral disorder, mentally slow, who admitted initially 02/25/2019 complaining of chest pain and shortness of breath. The patient underwent stress test that was abnormal, so the patient was scheduled for elective cardiac cath, possible angioplasty. PAST MEDICAL HISTORY: Significant for diabetes, hypertension, hyperlipidemia, morbid obesity, mentally slow, disability, does not work, also had behavioral disorder as well as history of bipolar disorder. SOCIAL HISTORY: Denies any smoking. Denies any history of alcohol abuse, but history of alcohol abuse in the past, quit a month ago. Also as mentioned, the patient has heavy alcohol abuse in the past, slow down since past 02/2019. CURRENT MEDICATIONS: The patient is taking at home Abilify, Colace, MiraLax, TriCor, vitamin D, Depakote, Cogentin, and atorvastatin. ALLERGIES: NO KNOWN DRUG ALLERGIES. RECENT CARDIAC WORKUP FOLLOWS: The patient had a stress test dated 02/27/2019, that shows suboptimal study to motion artifact, equivocal stress test, perfusion abnormality, reversible anterior grade suspicious for ischemia, ejection fraction 74%. The patient had an echocardiography 02/27/2019 that revealed normal chamber size, ejection fraction 65% to 70%, mild mitral regurgitation, mild tricuspid regurgitation, RV systolic pressure 29, and no thrombus noted. Prior to that, the patient had echocardiography done on 11/22/2018, that shows normal chamber size, ejection fraction 65% to 70%, trace tricuspid regurgitation, and trace mitral regurgitation. The patient has also prior stress test 11/21/2018, that is essentially normal in the past. This recent stress test shows abnormality with new apical anterior defect. REVIEW OF SYSTEMS: As per HPI. PHYSICAL EXAMINATION: GENERAL: Height of the patient 5 feet, weight of the patient 180 pounds, and body mass index 35.2 kg/m2. VITAL SIGNS: Temperature afebrile, heart rate 86, and blood pressure 130/80. HEENT: PERRLA. Extraocular muscles are intact. NECK: Supple. No carotid bruits. No thyromegaly. CHEST: Clear to auscultation. HEART: S1 and S2 regular. ABDOMEN: Soft. EXTREMITIES: Clubbing and cyanosis negative. IMPRESSION AND PLAN: A 43-year-old male with history of diabetes, hypertension, hyperlipidemia, behavioral disorder, and obesity who recently underwent stress test admitted with chest pain, found to be abnormal, so the patient is scheduled for elective cardiac catheterization, possible angioplasty. This stress test is new since last admission. Last stress 11/22/2018 and the recent stress test is 02/25/2019 shows new changes appear in anterior wall. The patient is scheduled for elective cardiac catheterization. Risks, benefits, and alternatives were explained to the patient, the patient agreed to proceed for cardiac catheterization. Further recommendation after cardiac catheterization. We will follow with you. Thank you Dr. Gregory for providing us the opportunity in taking care of the patient, Marcelo Huynh. Brie Quintana MD
[2019-03-30 06:58] LABS: BASO # 0.02 K/mm3 (0.0-2.0); BASO % 0.3 % (0.0-3.0); EOS # 0.2 (0.0-0.7); EOS % 2.6 % (1.5-5.0); HEMOGLOBIN 12.7 g/dL (14.0-18.0); LYMPH # 2.3 (1.2-3.4); LYMPH % 37.6 % (22.0-35.0); MEAN CELL VOLUME 92.2 fl (80.0-105.0); MEAN CORPUSCULAR HGB CONC 32.6 g/dl (31.0-37.0); MEAN PLATELET VOLUME 10.6 fl (7.0-11.0); MONO # 0.4 (0.1-0.6); MONO % 6.8 % (1.0-6.0); RBC 4.23 10^6/uL (3.5-6.1); WHITE BLOOD COUNT 6.1 10^3/uL (4.5-11.0)
[2019-03-30 07:09] LABS: INR 1.1; PARTIAL THROMBOPLASTIN TIME 35.5 Seconds (26.9-38.3); PROTHROMBIN TIME 12.4 SECONDS (9.4-12.5)
[2019-03-30 07:11] LABS: BLOOD UREA NITROGEN 11 mg/dL (7-21); CALCIUM 9.1 mg/dL (8.4-10.5); GFR NON-AFRICAN AMERICAN > 60; HDL CHOLESTEROL 24 mg/dL (29-60)
[2019-03-30 07:19] VITALS: RESP 18
[2019-03-30 07:21] LABS: LDL CHOLESTEROL 163 mg/dL (0-129)
[2019-03-30 07:23] VITALS: BMI 36.2
[2019-03-30] MEDS ORDERED: Iodixanol 320 MG/ML 100 ML BOTTLE IV ONE (08:49)
[2019-03-30] MEDS ORDERED: Iodixanol 320 MG/ML 200 ML BOTTLE IV ONE (08:49)
[2019-03-30] MEDS ORDERED: Iohexol 350mgl/ml 50 ML ONE (08:49)
[2019-03-30] MEDS ORDERED: Verapamil 2 ML ONE (08:52)
[2019-03-30] MEDS ORDERED: Lidocaine PF 2% (5 ml) Inj (For Cardiac Arrhy) ONE (08:52)
[2019-03-30] MEDS ORDERED: Nitroglycerin 50mg in D5W 50 MG/250 ML BOTTLE IV ONE (08:52)
[2019-03-30] MEDS ORDERED: Midazolam 2 MG/2 ML VIAL ONE ×2 (08:56→09:33)
[2019-03-30] MEDS ORDERED: Bacitracin 500 Units/gm Oint Foilpak UD TOP ONE (09:48)
[2019-03-30] MEDS ORDERED: Sodium Chloride 0.9% 1,000 ML IV SCH (10:00)
--- NOTE | 2019-03-30 10:01 | CARD ---
APPROVED REPORT Date of service: 03/30/2019 EKG Measurement Heart [id number] ND [id number] [id number] <Conclusion> Normal sinus rhythm Normal ECG
[2019-03-30 10:11] VITALS: TEMP 98.5
--- NOTE | 2019-03-30 10:11 | CPOSTOP ---
DATE: 03/30/2019 CARDIOVASCULAR LAB POST PROCEDURE NOTE DICTATING PHYSICIAN: Brie Quintana MD JACQUARD PLATE MAKER: Debora Rashmi. TYPE OF ANESTHESIA: Moderate conscious sedation, total 2 mg of Versed and,100 of fentanyl given. Periodically starting 1 mg of Versed and 50 of fentanyl. PRE-PROCEDURE DIAGNOSIS: Unstable angina, abnormal stress test. The patient admitted on the [facility] with the chest pain and had an abnormal stress test anterior wall ischemia which is new since 11/2018. FINDINGS: Normal coronaries, decreased LV function. FINAL DIAGNOSIS: Normal coronaries. POST PROCEDURE CONDITION: The patient's condition is stable. VASCULAR ACCESS SITE: Left radial. TOTAL RADIATION DOSE: 6552.1 milligray unit. CUMULATIVE DOSE: 788 milligray unit. FLUORO TIME: 2.5 minutes. Brie Quintana MD MTDD
[2019-03-30 12:01] VITALS: O2SAT 94
[2019-03-30] MEDS ORDERED: Bacitracin 500 Units/gm Oint Foilpak UD ONE (12:27)
[2019-03-30 12:30] VITALS: BP 150/93; PULSE 81
== END 2019-03-30 14:00 | disposition home or self-care (01) ==
LOC: CATH 06:05
PROVIDERS: ATTEND Internal Medicine Cardiovascular Disease
DX: I20.0 Unstable angina (principal); R94.39 Abnormal result of other cardiovascular function study; E11.9 Type 2 diabetes mellitus without complications; I10 Essential (primary) hypertension; E78.5 Hyperlipidemia, unspecified; I08.1 Rheumatic disorders of both mitral and tricuspid valves; E66.01 Morbid (severe) obesity due to excess calories; F91.9 Conduct disorder, unspecified; Z79.899 Other long term (current) drug therapy; Z68.35 Body mass index [BMI] 35.0-35.9, adult; F31.9 Bipolar disorder, unspecified
CPT/HCPCS: 36415; 80048; 80061; 85025; 85610; 85730; 86850; 86900; 93005; 93458; 99152; 99153; C1769; J1644 ×2; J2250; J3010; J7030; Q9966; Q9967 ×2

== ENCOUNTER 2019-04-06 01:48 | Emergency (ER) | payer MEDICARE, MEDICAID ==
[2019-04-06 01:48] VITALS: BMI 36.2
--- NOTE | 2019-04-06 02:01 | ED PDOC ---
Arrival/HPI - General Chief Complaint: Chest Pain Time Seen by Provider: 04/06/19 01:51 Historian: Patient - History of Present Illness Narrative History of Present Illness (Text): 04/06/19 02:00 Marcelo Huynh is a 43 year old male, whose past medical history includes bipolar disorder, depression, hypertension, and hyperlipidemia, who presents to the ED complaining of chest pain. Patient states he woke up with mid-sternal c hest pain, reproducible with palpation, tonight , notes pain is consistent with previous episodes of chest pain. Patient recently underwent a cardiac catheterization on 03/30/2019, which showed normal coronary arteries. Patient denies any fever, chills, shortness of breath, nausea, vomiting, diarrhea, urinary symptoms, back pain, neck pain, headache, dizziness, or any other complaints. Time/Duration: Other (tonight) Symptom Course: Unchanged Activities at Onset: Light Context: Home Past Medical History - Provider Review Nursing Documentation Reviewed: Yes Primary Care Provider: Cinthia Gregory - Past History Past History: Non-Contributing - Infectious Disease Hx of Infectious Diseases: None - Tetanus Immunization Tetanus Immunization: Unknown - Cardiac Hx Pacemaker: No - Pulmonary Hx Respiratory Disorders: No - Neurological Hx Neurological Disorder: No - HEENT Hx HEENT Disorder: No - Renal Hx Renal Disorder: No - Endocrine/Metabolic Hx Endocrine Disorders: No - Hematological/Oncological Hx Blood Transfusions: No - Integumentary Hx Dermatological Disorder: No - Musculoskeletal/Rheumatological Hx Musculoskeletal Disorders: No - Gastrointestinal Hx Gastrointestinal Disorders: Yes (hemorrhoids) Other/Comment: rectal bleeding - Genitourinary/Gynecological Hx Genitourinary Disorders: Yes Other/Comment: hx of left testicular pain, proctitis - Psychiatric Hx Emotional Abuse: No Hx Physical Abuse: No Hx Substance Use: No - Past Surgical History Past Surgical History: No Previous - Anesthesia Hx Anesthesia Reactions: No Hx Malignant Hyperthermia: No - Suicidal Assessment Feels Threatened In Home Enviroment: No Family/Social History - Physician Review Nursing Documentation Reviewed: Yes Family/Social History: Unknown Family HX Smoking Status: Never Smoked Hx Alcohol Use: Yes (DRINKS ALOT ) Hx Substance Use: No Hx Substance Use Treatment: No Allergies/Home Meds Allergies/Adverse Reactions: Allergies No Known Allergies Allergy (Verified 03/20/19 02:54) Home Medications: Home Meds Medication Instructions Recorded Confirmed ARIPiprazole [Abilify] 5 mg PO DAILY 10/31/18 03/30/19 Divalproex [Depakote DR(*BID*)] 500 mg PO HS 10/31/18 03/30/19 Benztropine [Cogentin] 0.5 mg PO BID 12/09/18 03/30/19 Albuterol Sulfate [Proair Hfa] 1 puff INH TID 03/21/19 03/30/19 Levocetirizine Dihydrochloride 5 mg PO DAILY 03/21/19 03/30/19 [Xyzal] Montelukast [Singulair] 10 mg PO DAILY 03/21/19 03/30/19 Review of Systems - Physician Review All systems were reviewed & negative as marked: Yes - Review of Systems Constitutional: Normal. absent: Fevers Eyes: Normal ENT: Normal Respiratory: Normal. absent: SOB, Cough Cardiovascular: Chest Pain Gastrointestinal: Normal. absent: Abdominal Pain, Diarrhea, Nausea, Vomiting Genitourinary Male: Normal. absent: Dysuria, Frequency, Hematuria, Urinary Output Changes Musculoskeletal: Normal. absent: Back Pain, Neck Pain Skin: Normal. absent: Rash Neurological: Normal. absent: Headache, Dizziness Endocrine: Normal Hemo/Lymphatic: Normal Psychiatric: Normal Physical Exam Vital Signs Reviewed: Yes Temperature: Afebrile Blood Pressure: Normal Pulse: Regular Respiratory Rate: Normal Appearance: Positive for: Well-Appearing, Non-Toxic, Comfortable Pain Distress: None Mental Status: Positive for: Alert and Oriented X 3 - Systems Exam Head: Present: Atraumatic, Normocephalic Pupils: Present: PERRL Extroacular Muscles: Present: EOMI Conjunctiva: Present: Normal Mouth: Present: Moist Mucous Membranes Neck: Present: Normal Range of Motion Respiratory/Chest: Present: Clear to Auscultation, Good Air Exchange, Tender to Palpation. No: Respiratory Distress, Accessory Muscle Use Cardiovascular: Present: Regular Rate and Rhythm, Normal S1, S2. No: Murmurs Abdomen: No: Tenderness, Distention, Peritoneal Signs Back: Present: Normal Inspection Upper Extremity: Present: Normal Inspection. No: Cyanosis, Edema Lower Extremity: Present: Normal Inspection. No: Edema Neurological: Present: GCS=15, CN II-XII Intact, Speech Normal Skin: Present: Warm, Dry, Normal Color. No: Rashes Psychiatric: Present: Alert, Oriented x 3, Normal Insight, Normal Concentration Medical Decision Making ED Course and Treatment: 04/06/19 02:00 Impression: 43 year old male complaining of mid-sternal chest pain tonight. Plan: -- EKG -- Chest X-ray -- Labs, cardiac enzymes -- Reassess and disposition Prior Visits: Notes and results from previous visits were reviewed. Progress Notes: Reviewed EKG, NSR at [address]-segment elevations or depressions, no T-wave inversions, normal intervals. 04/06/19 02:51 Chest X-ray reviewed, shows no acute processes. - Lab Interpretations I have reviewed the lab results: Yes - RAD Interpretation [employer] Manufacturer: ED Physician - EKG Interpretation Interpreted by ED Physician: Yes Type: 12 lead EKG - Scribe Statement The provider has reviewed the documentation as recorded by the Natalyibcheyenne Smith Provider Scribe Attestation: All medical record entries made by the Scribe were at my direction and personally dictated by me. I have reviewed the chart and agree that the record accurately reflects my personal performance of the history, physical exam, medical decision making, and the department course for this patient. I have also personally directed, reviewed, and agree with the discharge instructions and disposition. Disposition/Present on Arrival - Present on Arrival Any Indicators Present on Arrival: No History of DVT/PE: No History of Uncontrolled Diabetes: No Urinary Catheter: No History of Decub. Ulcer: No History Surgical Site Infection Following: None - Disposition Have Diagnosis and Disposition been Completed?: Yes Diagnosis: Musculoskeletal chest pain Disposition: HOME/ ROUTINE Disposition Time: 03:16 Patient Plan: Discharge Condition: GOOD Discharge Instructions (ExitCare): Chest Pain (ED), Costochondritis (DC) Additional Instructions: Rest/no strenuous physical activity next few days/take meds as prescribed/follow up with your doctor this week Prescriptions: Ibuprofen [Motrin] 400 mg PO Q6 PRN #16 tab PRN Reason: Pain, Moderate (4-7) Referrals: Cinthia Gregory MD [Primary Care Provider] - Follow up with primary Forms: [employer] (Thai)
[2019-04-06 02:10] VITALS: TEMP 98.8
[2019-04-06 02:16] LABS: HEMOGLOBIN 13.6 g/dL (14.0-18.0); MEAN CELL VOLUME 92.9 fl (80.0-105.0); MEAN CORPUSCULAR HEMOGLOBIN 31.3 pg (25.0-35.0); MEAN CORPUSCULAR HGB CONC 33.7 g/dl (31.0-37.0); MEAN PLATELET VOLUME 10.7 fl (7.0-11.0); RBC 4.35 10^6/uL (3.5-6.1); RED CELL DISTRIBUTION WIDTH 13.1 % (11.5-14.5); WHITE BLOOD COUNT 6.7 10^3/uL (4.5-11.0)
[2019-04-06 02:23] LABS: ALB/GLOB RATIO 1.2 (1.1-1.8); ALBUMIN 4.5 g/dL (3.0-4.8); ALT/SGPT 51 U/L (7-56); AST/SGOT 30 U/L (17-59); BLOOD UREA NITROGEN 12 mg/dL (7-21); CALCIUM 9.2 mg/dL (8.4-10.5); GFR NON-AFRICAN AMERICAN > 60; INR 1.12; PARTIAL THROMBOPLASTIN TIME 31.7 Seconds (26.9-38.3); PROTHROMBIN TIME 12.4 SECONDS (9.4-12.5)
[2019-04-06 02:34] LABS: TROPONIN I < 0.01 ng/mL
[2019-04-06 04:11] VITALS: BP 132/80; PULSE 83; RESP 18; O2SAT 96
--- NOTE | 2019-04-06 08:48 | RAD ---
Date of service: 04/06/2019 HISTORY: chest pain COMPARISON: No prior. TECHNIQUE: 1 view obtained. FINDINGS: LUNGS: No active pulmonary disease. PLEURA: No significant pleural effusion identified, no pneumothorax apparent. CARDIOVASCULAR: No aortic atherosclerotic calcification present. Normal cardiac size. No pulmonary vascular congestion. OSSEOUS STRUCTURES: No significant abnormalities. VISUALIZED UPPER ABDOMEN: Normal. OTHER FINDINGS: None. IMPRESSION: No active disease.
--- NOTE | 2019-04-06 19:39 | CARD ---
APPROVED REPORT Date of service: 04/06/2019 EKG Measurement Heart [id number] <Conclusion> Normal sinus rhythm Normal ECG
== END 2019-04-06 04:29 | disposition home or self-care (01) ==
LOC: ED 01:48
DX: R07.89 Other chest pain (principal); I10 Essential (primary) hypertension; E78.5 Hyperlipidemia, unspecified

== ENCOUNTER 2019-04-07 03:08 | Emergency (ER) | payer MEDICARE, MEDICAID ==
[2019-04-07 03:08] VITALS: BMI 36.2
[2019-04-07 04:15] LABS: BASO # 0.04 K/mm3 (0.0-2.0); BASO % 0.6 % (0.0-3.0); EOS # 0.2 (0.0-0.7); HEMOGLOBIN 13.7 g/dL (14.0-18.0); LYMPH # 2.6 (1.2-3.4); LYMPH % 36.2 % (22.0-35.0); MEAN CORPUSCULAR HEMOGLOBIN 31.1 pg (25.0-35.0); MEAN CORPUSCULAR HGB CONC 33.4 g/dl (31.0-37.0); MEAN PLATELET VOLUME 10.4 fl (7.0-11.0); MONO # 0.6 (0.1-0.6); MONO % 7.8 % (1.0-6.0); RBC 4.41 10^6/uL (3.5-6.1); RED CELL DISTRIBUTION WIDTH 13.1 % (11.5-14.5); WHITE BLOOD COUNT 7.3 10^3/uL (4.5-11.0)
[2019-04-07 04:27] LABS: ALB/GLOB RATIO 1.3 (1.1-1.8); ALBUMIN 4.4 g/dL (3.0-4.8); ALT/SGPT 46 U/L (7-56); AST/SGOT 35 U/L (17-59); BLOOD UREA NITROGEN 15 mg/dL (7-21); CALCIUM 9.2 mg/dL (8.4-10.5); GFR NON-AFRICAN AMERICAN > 60
[2019-04-07 04:31] LABS: TROPONIN I < 0.01 ng/mL
[2019-04-07 05:06] VITALS: TEMP 98
--- NOTE | 2019-04-07 05:25 | ED PDOC ---
Arrival/HPI - General Chief Complaint: Chest Pain Time Seen by Provider: 04/07/19 03:14 Historian: Patient - History of Present Illness Narrative History of Present Illness (Text): 04/07/19 05:22 43 year old male, whose past medical history includes variocele, developmental delay, bipolar disorder, schizophrenia, hypertension, hyperlipidemia, and hemorrhoids, presents to the emergency department complaining of chest pain. Patient states pain "may have started in the morning or the evening". Patient was seen in the emergency department on 04/06/19 for the same complaint. Patient was also catheterized last week, showing normal coronaries. Patient denies any associated shortness of breath. Patient denies any fevers, chills, headache, dizziness, dyspnea on exertion, cough, abdominal pain, diarrhea, back pain, neck pain, or any other complaints. 04/07/19 05:28 Time/Duration: Prior to Arrival, 24 hours Symptom Onset: Gradual Symptom Course: Unchanged Activities at Onset: Light Context: Home Past Medical History - Provider Review Nursing Documentation Reviewed: Yes - Past History Past History: Non-Contributing - Infectious Disease Hx of Infectious Diseases: None - Tetanus Immunization Tetanus Immunization: Unknown - Cardiac Hx Pacemaker: No - Pulmonary Hx Respiratory Disorders: No - Neurological Hx Neurological Disorder: No - HEENT Hx HEENT Disorder: No - Renal Hx Renal Disorder: No - Endocrine/Metabolic Hx Endocrine Disorders: No - Hematological/Oncological Hx Blood Transfusions: No - Integumentary Hx Dermatological Disorder: No - Musculoskeletal/Rheumatological Hx Musculoskeletal Disorders: No - Gastrointestinal Hx Gastrointestinal Disorders: Yes (hemorrhoids) Other/Comment: rectal bleeding - Genitourinary/Gynecological Hx Genitourinary Disorders: Yes Other/Comment: hx of left testicular pain, proctitis - Psychiatric Hx Emotional Abuse: No Hx Physical Abuse: No Hx Substance Use: No - Past Surgical History Past Surgical History: No Previous - Anesthesia Hx Anesthesia Reactions: No Hx Malignant Hyperthermia: No - Suicidal Assessment Feels Threatened In Home Enviroment: No Family/Social History - Physician Review Nursing Documentation Reviewed: Yes Family/Social History: No Known Family HX Smoking Status: Never Smoked Hx Alcohol Use: Yes (DRINKS ALOT ) Hx Substance Use: No Hx Substance Use Treatment: No Allergies/Home Meds Allergies/Adverse Reactions: Allergies No Known Allergies Allergy (Verified 03/20/19 02:54) Home Medications: Home Meds Medication Instructions Recorded Confirmed ARIPiprazole [Abilify] 5 mg PO DAILY 10/31/18 03/30/19 Divalproex [Depakote DR(*BID*)] 500 mg PO HS 10/31/18 03/30/19 Benztropine [Cogentin] 0.5 mg PO BID 12/09/18 03/30/19 Albuterol Sulfate [Proair Hfa] 1 puff INH TID 03/21/19 03/30/19 Levocetirizine Dihydrochloride 5 mg PO DAILY 03/21/19 03/30/19 [Xyzal] Montelukast [Singulair] 10 mg PO DAILY 03/21/19 03/30/19 Review of Systems - Physician Review All systems were reviewed & negative as marked: Yes - Review of Systems Constitutional: absent: Fevers, Night Sweats Respiratory: absent: SOB, Cough Cardiovascular: Chest Pain. absent: ARTEAGA Gastrointestinal: absent: Abdominal Pain, Diarrhea Musculoskeletal: absent: Back Pain, Neck Pain Neurological: absent: Headache, Dizziness Physical Exam Vital Signs Reviewed: Yes Vital Signs Temp Pulse Resp BP Pulse Ox 04/07/19 03:08 98.0 F 94 H 18 164/98 H 97 Temperature: Afebrile Blood Pressure: Hypertensive Pulse: Regular Respiratory Rate: Normal Appearance: Positive for: Well-Appearing, Non-Toxic, Comfortable Pain Distress: None Mental Status: Positive for: Alert and Oriented X 3 - Systems Exam Head: Present: Atraumatic, Normocephalic Pupils: Present: PERRL Extroacular Muscles: Present: EOMI Conjunctiva: Present: Normal Mouth: Present: Moist Mucous Membranes Neck: Present: Normal Range of Motion Respiratory/Chest: Present: Clear to Auscultation, Good Air Exchange. No: Respiratory Distress, Accessory Muscle Use Cardiovascular: Present: Regular Rate and Rhythm, Normal S1, S2. No: Murmurs Abdomen: No: Tenderness, Distention, Peritoneal Signs Back: Present: Normal Inspection Upper Extremity: Present: Normal Inspection. No: Cyanosis, Edema Lower Extremity: Present: Normal Inspection. No: Edema Neurological: Present: GCS=15, CN II-XII Intact, Speech Normal Skin: Present: Warm, Dry, Normal Color. No: Rashes Psychiatric: Present: Alert, Oriented x 3, Normal Insight, Normal Concentration Medical Decision Making ED Course and Treatment: 04/07/19 05:28 Impression: 43 year old male presents with chest pain. Plan: -- EKG -- Chest X-ray -- Zofran -- Reassess and disposition Prior Visits: Notes and results from previous visits were reviewed. Progress Notes: - Lab Interpretations Lab Results: Troponin I < 0.01 ng/mL 04/07/19 03:55 Total Bilirubin 0.3 mg/dL (0.2-1.3) 04/07/19 03:55 AST 35 U/L (17-59) 04/07/19 03:55 ALT 46 U/L (7-56) 04/07/19 03:55 Alkaline Phosphatase 50 U/L (38-126) 04/07/19 03:55 Total Protein 7.8 g/dL (5.8-8.3) 04/07/19 03:55 Albumin 4.4 g/dL (3.0-4.8) 04/07/19 03:55 Globulin 3.5 gm/dL 04/07/19 03:55 Albumin/Globulin Ratio 1.3 (1.1-1.8) 04/07/19 03:55 - RAD Interpretation Radiology Orders: 04/07/19 03:53 CHEST PORTABLE [RAD] Stat - Medication Orders Current Medication Orders: Discontinued Medications Ondansetron HCl (Zofran Inj) 4 mg IVP STAT STA Stop: 04/07/19 03:56 Last Admin: 04/07/19 04:33 Dose: 4 mg IVP Administration Document 04/07/19 04:33 MA (Rec: 04/07/19 04:33 MA [facility] [id number]) Charges for Administration # of IVP Administrations 1 - Scribe Statement The provider has reviewed the documentation as recorded by the Scribe Minesh Valentino All medical record entries made by the Scribe were at my direction and personally dictated by me. I have reviewed the chart and agree that the record accurately reflects my personal performance of the history, physical exam, medical decision making, and the department course for this patient. I have also personally directed, reviewed, and agree with the discharge instructions and disposition. Disposition/Present on Arrival - Present on Arrival Any Indicators Present on Arrival: No History of DVT/PE: No History of Uncontrolled Diabetes: No Urinary Catheter: No History of Decub. Ulcer: No History Surgical Site Infection Following: None - Disposition Have Diagnosis and Disposition been Completed?: Yes Diagnosis: Atypical chest pain Disposition: HOME/ ROUTINE Disposition Time: 04:30 Condition: GOOD Discharge Instructions (ExitCare): Chest Pain (ED) Additional Instructions: FRANNIE MORRIS, thank you for letting us take care of you today. The emergency medical care you received today was directed at your acute symptoms. If you were prescribed any medication, please fill it and take as directed. It may take several days for your symptoms to resolve. Return to the Emergency Department if your symptoms worsen, do not improve, or if you have any other problems. Please contact your doctor or call one of the physicians/clinics you have been referred to that are listed on the Patient Visit Information form that is included in your discharge packet. Bring any paperwork you were given at discharge with you along with any medications you are taking to your follow up visit. Our treatment cannot replace ongoing medical care by a primary care provider outside of the emergency department. Thank you for allowing the [employer] team to be part of your care today. Please follow up with your primary care doctor in 2-3 days for re-evaluation and further management. Referrals: Cinthia Gregory MD [Primary Care Provider] - Follow up with primary Forms: [employer] (Irish)
[2019-04-07 05:26] VITALS: BP 164/91; PULSE 85; RESP 16; O2SAT 99
--- NOTE | 2019-04-07 11:07 | RAD ---
Date of service: 04/07/2019 HISTORY: chest pain COMPARISON: 04/06/2019. FINDINGS: LUNGS: The lungs are well inflated and clear. PLEURA: No pleural effusions or pneumothorax. CARDIOVASCULAR: The heart is normal in size. No aortic atherosclerotic calcifications present. OSSEOUS STRUCTURES: Within normal limits for the patient's age. VISUALIZED UPPER ABDOMEN: Normal. OTHER FINDINGS: None. IMPRESSION: No active pulmonary disease.
--- NOTE | 2019-04-07 17:00 | CARD ---
APPROVED REPORT Date of service: 04/07/2019 EKG Measurement Heart [id number] <Conclusion> Normal sinus rhythm Normal ECG
== END 2019-04-07 05:25 | disposition home or self-care (01) ==
LOC: ED 03:08
DX: R07.89 Other chest pain (principal); E78.5 Hyperlipidemia, unspecified; F20.9 Schizophrenia, unspecified; F31.9 Bipolar disorder, unspecified; I10 Essential (primary) hypertension
CPT/HCPCS: 71045; 80053; 82550; 83615; 83735; 84484; 85025; 93005; 96374; 99283; J2405